=== PATIENT | female | born 1940 | race Caucasian/White ===

== ENCOUNTER → 2021-02-18 09:04 | Outpatient (CLI) | payer MEDICARE, SELFPAY ==
--- NOTE | 2021-02-18 09:10 | US_ITS ---
PROCEDURE: US SOFT TISSUE HEAD AND NECK CLINICAL INDICATION: NECK MASS COMPARISON: No exams were available for comparison FINDINGS: The parotids and submandibular glands have an unremarkable appearance. No obvious mass or abnormal fluid collection. Small bilateral cervical lymph nodes are present. IMPRESSION: No obvious mass or fluid collection. Small bilateral cervical lymph nodes. If there is indeed a palpable nodule then should consider CT neck with contrast for further evaluation Dictated by: Amrit Teague MD 02/18/2021 17:36 Amrit Teague MD in [place] 02/18/2021 17:36
== END ==
PROVIDERS: PCP Emergency Medicine; Visit Provider Emergency Medicine
DX: R22.1 Localized swelling, mass and lump, neck (principal)
CPT/HCPCS: 76536

== ENCOUNTER → 2021-06-02 12:49 | Outpatient (CLI) | payer MEDICARE, SELFPAY ==
[2021-06-02 14:00] LABS: Blood Urea Nitrogen 18 mg/dl (7-17); Estimated Glomerular Filt Rate 60 ml/min (>60); GFR (African American) 73 ML/MIN (>60)
== END ==
PROVIDERS: PCP Emergency Medicine; Visit Provider Otolaryngology
DX: Z01.812 Encounter for preprocedural laboratory examination (principal)
CPT/HCPCS: 36415; 82565; 84520

== ENCOUNTER → 2021-06-03 13:25 | Outpatient (CLI) | payer MEDICARE, SELFPAY ==
--- NOTE | 2021-06-03 13:26 | CT_ITS ---
FINAL REPORT TECHNIQUE: Thin section axial CT images were obtained through the neck after intravenous contrast administration. Coronal and sagittal reformats were also obtained. This study was performed with techniques to keep radiation doses as low as reasonably achievable (ALARA). Individualized dose reduction techniques using automated exposure control or adjustment of mA and/or kV according to the patient''s size were employed. CLINICAL HISTORY: dysphagia FINDINGS: There is soft tissue fullness of the oropharynx and hypopharynx of uncertain significance, could be inflammatory or neoplastic. The nasopharynx and larynx are unremarkable. There is no evidence of adenopathy. The thyroid gland is small without mass. The visualized sinuses are clear. There are diffuse degenerative changes of the cervical spine. IMPRESSION: Soft tissue fullness of the oropharynx and hypopharynx, could be inflammatory or neoplastic. Upper endoscopy could further evaluate. Reviewed, Interpreted and Dictated by Fly Joe III, MD Transcribed by Antonella Bowden Authenticated by Fly Joe III, MD on 06/03/2021 03:53:19 PM [facility]
== END ==
PROVIDERS: PCP Emergency Medicine; Visit Provider Otolaryngology
DX: R13.10 Dysphagia, unspecified (principal)
CPT/HCPCS: 70491; Q9967

== ENCOUNTER → 2021-06-17 11:54 | Outpatient (CLI) | payer MEDICARE, SELFPAY | PROVIDERS: Visit Provider Nurse Practitioner | DX: Z20.822 Contact with and (suspected) exposure to COVID-19 (principal) | CPT/HCPCS: C9803; U0003; U0005 ==

== ENCOUNTER → 2022-12-17 11:00 | Outpatient (CLI) | payer MEDICARE, SELFPAY | PROVIDERS: PCP Nurse Practitioner Family; Visit Provider Nurse Practitioner Family | DX: R30.0 Dysuria (principal) | CPT/HCPCS: 87086 ==

== ENCOUNTER → 2022-12-22 09:36 | Outpatient (CLI) | payer MEDICARE, SELFPAY ==
--- NOTE | 2022-12-22 09:37 | US_ITS ---
FINAL REPORT TECHNIQUE: Ultrasound images of the kidneys and bladder were obtained. CLINICAL HISTORY: bilateral flank pain FINDINGS: The right kidney measures 11.6 cm in length. It is normal in echogenicity. There is no hydronephrosis. There is a 4.4 cm cyst in the right kidney. The left kidney measures 10.6 cm in length. It is normal in echogenicity. There is no hydronephrosis. There is an 8.7 cm cyst in the left kidney. The spleen is unremarkable. IMPRESSION: Bilateral renal cysts. Reviewed, Interpreted and Dictated by Fly Joe III, MD Transcribed by Antonella Bowden Authenticated and . [facility]
== END ==
PROVIDERS: PCP Nurse Practitioner Family; Visit Provider Nurse Practitioner Family
DX: N15.9 Renal tubulo-interstitial disease, unspecified (principal); R10.9 Unspecified abdominal pain
CPT/HCPCS: 76770

== ENCOUNTER → 2023-02-03 23:32 | Outpatient (CLI) | payer MEDICARE, SELFPAY ==
[2023-02-03 16:56] LABS: Basophils % 0.5 % (0.1-2.0); Eosinophils # 0.1 K/mm3 (0.0-0.4); Eosinophils % 2.9 % (0.1-12.0); Hemoglobin 13.5 g/dL (12.2-16.2); Lymphocytes # 1.7 K/mm3 (0.7-4.5); Mean Corpuscular HGB Conc 32.1 g/dL (31.8-35.4); Mean Corpuscular Hemoglobin 30.3 pg (27.0-31.2); Mean Corpuscular Volume 94.1 fl (81-99); Mean Platelet Volume 8.1 fl (7.4-10.4); Monocytes # 0.4 K/mm3 (0.1-1.0); Monocytes % 9.8 % (1.7-9.3); Neutrophils % 47.8 % (37.0-80.0); Platelet Count 241 K/mm3 (142-424); Red Blood Count 4.46 M/mm3 (4.20-5.40); Red Cell Distribution Width 14.1 % (11.5-17.5); White Blood Count 4.3 K/mm3 (4.8-10.8)
[2023-02-03 17:05] LABS: Alanine Aminotransferase 49 U/L (12-78); Albumin Level 4.2 g/dl (3.5-5.0); Albumin/Globulin Ratio 1.7 (1.1-1.8); Alkaline Phosphatase 103 U/L (38-126); Anion Gap 12.5 mEq/L (5-15); Aspartate Amino Transferase 42 U/L (14-36); Bilirubin,Total 0.5 mg/dl (0.2-1.3); Blood Urea Nitrogen 19 mg/dl (7-17); Calcium 9.9 mg/dl (8.4-10.2); Carbon Dioxide 30 mmol/L (22.0-30.0); Chloride 102 mmol/L (98-107); Cholesterol 232 mg/dl (140-200); Estimated Glomerular Filt Rate 60 ml/min (>60); GFR (African American) 73 ML/MIN (>60); Globulin 2.5 g/dL (1.3-3.2); Glucose 86 mg/dl (74-100); HDL Cholesterol 33 mg/dl (40-60); Potassium 4.5 mmoL/L (3.5-5.1); Sodium 140 mmol/L (136-145); Total Protein,Serum 6.7 g/dl (6.3-8.2); Triglycerides 224 mg/dl (30-150); VLDL Cholesterol 45 mg/dL (0-40)
[2023-02-03 17:16] LABS: Direct LDL Cholesterol 146.01 mg/dL (100-129)
[2023-02-03 17:39] LABS: Thyroid Stimulating Hormone 0.15 uIU/mL (0.465-4.68)
== END ==
PROVIDERS: PCP Family Medicine; Visit Provider Family Medicine
DX: I10 Essential (primary) hypertension (principal); E03.9 Hypothyroidism, unspecified
CPT/HCPCS: 80053; 80061; 84443; 85025

== ENCOUNTER → 2023-02-24 11:10 | Outpatient (CLI) | payer MEDICARE, SELFPAY | PROVIDERS: PCP Nurse Practitioner Family; Visit Provider Nurse Practitioner Family | DX: R30.0 Dysuria (principal) | CPT/HCPCS: 87086 ==

== ENCOUNTER 2023-07-04 14:41 | Outpatient (CLI) | payer MEDICARE, SELFPAY ==
--- NOTE | 2023-07-04 14:42 | US_ITS ---
FINAL REPORT CLINICAL HISTORY: Renal follow-up COMPARISON: None FINDINGS: RENAL ULTRASOUND Ultrasound images of the kidneys were obtained. Limited images of the liver parenchyma demonstrates normal echogenicity. The right kidney measures 12.5 cm in length. There is a probable cyst in the upper pole of the right kidney measuring 5.6 cm. The left kidney measures 11.7 cm in length. There is a 9.6 cm cyst in the lower pole the left kidney. IMPRESSION: Bilateral renal cysts. Reviewed, Interpreted and Dictated by Fly Joe III, MD Transcribed by Katia Goins Authenticated and [facility]
== END 2023-07-04 23:59 ==
LOC: RAD 14:42
PROVIDERS: PCP Family Medicine; Visit Provider Family Medicine
DX: N28.1 Cyst of kidney, acquired (principal)
CPT/HCPCS: 76770

== ENCOUNTER 2023-09-20 18:00 | Outpatient (CLI) | payer MEDICARE, SELFPAY ==
[2023-09-20 17:06] LABS: Alanine Aminotransferase 26 U/L (12-78); Albumin Level 4.4 g/dl (3.5-5.0); Albumin/Globulin Ratio 1.7 (1.1-1.8); Alkaline Phosphatase 97 U/L (38-126); Anion Gap 9.8 mEq/L (5-15); Aspartate Amino Transferase 32 U/L (14-36); Bilirubin,Total 0.8 mg/dl (0.2-1.3); Blood Urea Nitrogen 25 mg/dl (7-17); Calcium 10.4 mg/dl (8.4-10.2); Carbon Dioxide 30 mmol/L (22.0-30.0); Chloride 104 mmol/L (98-107); Chol/HDL Ratio 4.7 (1-3.5); Cholesterol 290 mg/dl (140-200); Estimated Glomerular Filt Rate 60 ml/min (>60); GFR (African American) 73 ML/MIN (>60); Globulin 2.6 g/dL (1.3-3.2); Glucose 92 mg/dl (74-100); HDL Cholesterol 62 mg/dl (40-60); Potassium 4.8 mmoL/L (3.5-5.1); Sodium 139 mmol/L (136-145); Triglycerides 161 mg/dl (30-150); VLDL Cholesterol 32 mg/dL (0-40)
[2023-09-20 17:08] LABS: Basophils % 0.5 % (0.1-2.0); Eosinophils # 0.1 K/mm3 (0.0-0.4); Eosinophils % 1.5 % (0.1-12.0); Hematocrit 43.6 % (37.0-47.0); Hemoglobin 14.1 g/dL (12.2-16.2); Lymphocytes # 1.6 K/mm3 (0.7-4.5); Lymphocytes % 25.8 % (10-50); Mean Corpuscular HGB Conc 32.3 g/dL (31.8-35.4); Mean Corpuscular Hemoglobin 30.7 pg (27.0-31.2); Mean Corpuscular Volume 94.9 fl (81-99); Mean Platelet Volume 8.7 fl (7.4-10.4); Monocytes # 0.6 K/mm3 (0.1-1.0); Neutrophils % 63.1 % (37.0-80.0); Platelet Count 248 K/mm3 (142-424); Red Blood Count 4.59 M/mm3 (4.20-5.40); Red Cell Distribution Width 14.1 % (11.5-17.5); White Blood Count 6.3 K/mm3 (4.8-10.8)
[2023-09-20 17:16] LABS: Direct LDL Cholesterol 179.49 mg/dL (100-129)
[2023-09-20 17:36] LABS: Thyroid Stimulating Hormone 7.83 uIU/mL (0.465-4.68)
== END 2023-09-20 23:59 | disposition home or self-care (01) ==
LOC: LAB.DROPOF 09-21 13:04
PROVIDERS: PCP Family Medicine; Visit Provider Family Medicine
DX: I10 Essential (primary) hypertension (principal); E03.9 Hypothyroidism, unspecified; Z87.891 Personal history of nicotine dependence
CPT/HCPCS: 80053; 80061; 84443; 85025

== ENCOUNTER 2023-12-22 11:16 | Outpatient (CLI) | payer MEDICARE, SELFPAY ==
[2023-12-22 17:18] LABS: Thyroid Stimulating Hormone 3.35 uIU/mL (0.465-4.68)
== END 2023-12-22 23:59 | disposition home or self-care (01) ==
LOC: LAB.DROPOF 12-23 08:10
PROVIDERS: PCP Nurse Practitioner Family; Visit Provider Nurse Practitioner Family
DX: R39.9 Unspecified symptoms and signs involving the genitourinary system (principal); E03.9 Hypothyroidism, unspecified
CPT/HCPCS: 84443; 87086

== ENCOUNTER 2024-01-18 12:31 | Outpatient (CLI) | payer MEDICARE, SELFPAY ==
--- NOTE | 2024-01-18 12:32 | US_ITS ---
FINAL REPORT CLINICAL HISTORY: Renal cysts, follow-up COMPARISON: 07/04/2023 FINDINGS: RENAL ULTRASOUND Ultrasound images of the kidneys were obtained. Limited images of the liver parenchyma demonstrates mild fatty infiltration of the liver. The right kidney measures 12.8 cm in length. It is normal echogenicity. There is a 4.6 x 4.4 cm cyst. There is no hydronephrosis. The left kidney measures 12.1 cm in length. It is normal echogenicity. There is a 9.4 x 7.2 cm cyst. There is no hydronephrosis. IMPRESSION: Bilateral renal cysts, similar to the prior exam. Reviewed, Interpreted and Dictated by Nixon Sheikh MD Transcribed by Christine Fisher Authenticated and [facility]
== END 2024-01-18 23:59 | disposition home or self-care (01) ==
LOC: RAD 12:32
PROVIDERS: PCP Family Medicine; Visit Provider Family Medicine
DX: I10 Essential (primary) hypertension (principal); Z87.891 Personal history of nicotine dependence
CPT/HCPCS: 76770

== ENCOUNTER 2024-07-16 10:56 | Outpatient (CLI) | payer MEDICARE, SELFPAY ==
[2024-07-16 17:28] LABS: Basophils % 0.9 % (0.1-2.0); Eosinophils # 0.1 K/mm3 (0.0-0.4); Eosinophils % 3.1 % (0.1-12.0); Hematocrit 41.8 % (37.0-47.0); Hemoglobin 13.6 g/dL (12.2-16.2); Lymphocytes # 1.5 K/mm3 (0.7-4.5); Lymphocytes % 34.3 % (10-50); Mean Corpuscular HGB Conc 32.5 g/dL (31.8-35.4); Mean Corpuscular Hemoglobin 29.7 pg (27.0-31.2); Mean Corpuscular Volume 91.3 fl (81-99); Mean Platelet Volume 9.4 fl (7.4-10.4); Monocytes # 0.5 K/mm3 (0.1-1.0); Monocytes % 10.9 % (1.7-9.3); Neutrophils # 2.1 K/mm3 (1.8-7.8); Neutrophils % 50.6 % (37.0-80.0); Platelet Count 213 K/mm3 (142-424); Red Blood Count 4.58 M/mm3 (4.20-5.40); Red Cell Distribution Width 13.5 % (11.5-17.5); White Blood Count 4.2 K/mm3 (4.8-10.8)
[2024-07-16 18:01] LABS: Albumin Level 4.4 g/dl (3.5-5.0); Chloride 104 mmol/L (98-107)
[2024-07-16 18:02] LABS: Potassium 4.2 mmoL/L (3.5-5.1); Sodium 141 mmol/L (136-145)
[2024-07-16 18:04] LABS: Alanine Aminotransferase 24 U/L (12-78); Aspartate Amino Transferase 30 U/L (14-36); Blood Urea Nitrogen 17 mg/dl (7-17); Estimated Glomerular Filt Rate 69 ml/min (>60); GFR (African American) 83 ML/MIN (>60)
[2024-07-16 18:05] LABS: Albumin/Globulin Ratio 1.8 (1.1-1.8); Alkaline Phosphatase 90 U/L (38-126); Anion Gap 12.2 mEq/L (5-15); Bilirubin,Total 0.5 mg/dl (0.2-1.3); Calcium 9.9 mg/dl (8.4-10.2); Carbon Dioxide 29 mmol/L (22.0-30.0); Chol/HDL Ratio 8.1 (1-3.5); Cholesterol 274 mg/dl (140-200); Globulin 2.4 g/dL (1.3-3.2); Glucose 86 mg/dl (74-100); HDL Cholesterol 34 mg/dl (40-60); Total Protein,Serum 6.8 g/dl (6.3-8.2); Triglycerides 295 mg/dl (30-150); VLDL Cholesterol 59 mg/dL (0-40)
[2024-07-16 18:20] LABS: Direct LDL Cholesterol 170.08 mg/dL (100-129)
[2024-07-16 18:26] LABS: T4 (Thyroxine) 7.2 ug/dl (5.53-11.0)
[2024-07-16 18:47] LABS: HIV Combo NEGATIVE (Negative)
[2024-07-16 18:56] LABS: Hepatitis C Ab Qual. W/ RFX NEGATIVE (Negative)
== END 2024-07-16 23:59 | disposition home or self-care (01) ==
LOC: LAB.DROPOF 07-17 18:25
PROVIDERS: PCP Family Medicine; Visit Provider Family Medicine
DX: E03.9 Hypothyroidism, unspecified (principal); I10 Essential (primary) hypertension; Z11.59 Encounter for screening for other viral diseases; R39.9 Unspecified symptoms and signs involving the genitourinary system
CPT/HCPCS: 80053; 80061; 84436; 84443; 85025; 86803; 87086; 87389

== ENCOUNTER 2024-08-09 12:33 | Emergency (ER) | payer MEDICARE, SELFPAY ==
[2024-08-09] VITALS (10 sets, daily range): BP systolic 157–178; BP diastolic 65–101; PULSE 66–85; RESP 13–18; TEMP 36.6; O2SAT 93–98; BMI 45.1
--- NOTE | 2024-08-09 12:28 | ECG_ITS ---
APPROVED REPORT Exam: Resting ECG HR:80 bpm ECG Measurements Heart Rate 80 AXES VT 237 P 60 QRSd 90 QRS 16 QT 350 T 62 QTc 386 Conclusion SINUS RHYTHM WITH FIRST DEGREE AV BLOCK NONSPECIFIC T-WAVE ABNORMALITY ABNORMAL ECG UNCONFIRMED REPORT Electronically signed by : CHEPE CASTRO, 08/10/2024 02:22:48
--- NOTE | 2024-08-09 12:35 | CT_ITS ---
FINAL REPORT TECHNIQUE: Thin section axial CT with contrast with multiplanar reconstruction This study was performed with techniques to keep radiation doses as low as reasonably achievable, (ALARA). Individualized dose reduction techniques using automated exposure control or adjustment of mA and/or kV according to the patient's size were employed. CLINICAL HISTORY: L shoulder pain L paraspinal pain non modifiable COMPARISON: None FINDINGS: CTA CHEST: No evidence of aortic dissection or aneurysm is identified. The branch vessels of the thoracic aorta are widely patent. No gross central pulmonary emboli are noted. There is a subpleural nodule, 6 mm in size, in the superior segment of the left lower lobe, best seen on image #35 of series 7. No acute infiltrate is identified. Mild dependent atelectasis is noted in the lung [place]. There is no significant pleural effusion. There is no significant pericardial effusion. No mediastinal or hilar adenopathy is present. A small hiatal hernia is noted. IMPRESSION: No evidence of dissection or aneurysm of the thoracic aorta or branch vessels. 6 mm subpleural nodule in the left lower lobe noted, recommend 6-month follow-up chest CT for further evaluation. Reviewed, Interpreted and Dictated by Paula Johansen MD Transcribed by Luisa Gray Authenticated and [facility]
--- NOTE | 2024-08-09 12:37 | HMH.EDGENADL ---
Discharge Plan Disposition Patient Disposition: Home, Self-Care Chief Complaint: Extremity Injury, Upper Prescriptions Prescriptions: No Action Centrum Silver 0.4-300-250 mg-mcg-mcg tablet 1 tab PO DAILY cholecalciferol (vitamin D3) 10 mcg (400 unit) capsule 10 mcg PO DAILY hydrochlorothiazide 12.5 mg tablet 12.5 mg PO DAILY Qty: 30 2RF metoprolol succinate 25 mg tablet extended release 24 hr 25 mg PO DAILY Qty: 90 2RF ropinirole 1 mg tablet See Rx Instructions .ROUTE .COMPLEX Qty: 270 3RF Dose Instruction: TAKE 3 TABLETS DAILY Rx Instructions: TAKE 3 TABLETS DAILY celecoxib 100 mg capsule See Rx Instructions .ROUTE .COMPLEX Qty: 90 3RF Dose Instruction: TAKE 1 CAPSULE DAILY Rx Instructions: TAKE 1 CAPSULE DAILY levothyroxine 100 mcg tablet 100 mcg PO DAILY 30 Days Qty: 30 0RF Rx Instructions: (2) tablets 1 day a week (1) tablet 6 days a week pregabalin [Lyrica] 25 mg capsule 25 mg PO HS Qty: 30 0RF Referrals Follow up/Referrals: Eleno Lantigua MD [Primary Care Provider] - See instructions Activity Restrictions/Add. Instructions Additional Instructions/Restrictions: At this time it was felt you are safe to be discharged home. If new or worsening symptoms please do not hesitate to return the emergency department. Please follow-up with your family doctor for continued evaluation of your shoulder pain as you are able. Clinical Impressions Clinical Impression: Acute shoulder pain Print Language Print Language: Irish Discharge ED Provider: Vinicius Bird General Adult HPI <Melvin Helm MD - Last Filed: 08/09/24 15:25> General Chief complaint: Extremity Injury, Upper Stated complaint: Chest Pain Time Seen by Provider: 08/09/24 12:35 History of Present Illness HPI narrative: Patient is a 83-year-old female with past medical history of hypertension, sleep apnea, previous breast cancer, previous shoulder pain presents emergency department for evaluation of shoulder pain. She has had some shoulder pain since May, left-sided however this is much worse than normal spontaneously awaking her up out of her sleep this morning. No anterior chest pain. It is left sided behind her shoulder, no trauma. She has had a cough since May that is difficult to articulate if it is worse than normal. No other acute complaints at this time. Please note that above description of symptoms, in this electronic medical record under categorization of recalled from ER triage doctor by RN are reflective of an initial nursing assessment, however, is not reflective of my full history and physical exam that was personally taken and clarified. Consequentially, this preceding description of symptoms, which may include the patient's categorized chief complaint in the EMR, do not reflect my personal clinical impression, and the ultimate description of history of present illness and patient stated complaints should be deferred to this section of the note. Unless stated otherwise or congruent with this section of the note, additional signs, symptoms, or incongruence should be interpreted as inaccurate with my clinical impression. Related Data Home Medications ?Medication ?Instructions ?Recorded ?Confirmed cholecalciferol (vitamin D3) 10 10 mcg PO DAILY 05/26/21 07/16/24 mcg (400 unit) capsule ghdjjrpw-uzg-bdfvi acid 0.4 1 tab PO DAILY 05/26/21 07/16/24 mg-lycopene 300 mcg-lutein 250 mcg tablet (Centrum Silver) Previous Rx's ?Medication ?Instructions ?Recorded metoprolol succinate 25 mg 25 mg PO DAILY #90 tabs 12/09/23 tablet,extended release 24 hr hydrochlorothiazide 12.5 mg tablet 12.5 mg PO DAILY #30 tabs 12/22/23 ropinirole 1 mg tablet See Rx Instructions .Route 04/23/24 .COMPLEX #270 tabs celecoxib 100 mg capsule See Rx Instructions .Route 06/18/24 .COMPLEX #90 caps levothyroxine 100 mcg tablet 100 mcg PO DAILY 30 days #30 tabs 07/18/24 pregabalin 25 mg capsule (Lyrica) 25 mg PO HS leg pain #30 caps 07/23/24 Allergies Allergy/AdvReac Type Severity Reaction Status Date / Time famciclovir (From Famvir) Allergy Verified 07/16/24 10:17 Penicillins Allergy Verified 07/16/24 10:17 quinine Allergy Verified 07/16/24 10:17 PFSH <Melvin Helm MD - Last Filed: 08/09/24 15:25> PFS Disclaimer: The information contained in this section may have been updated after the patient was seen, as this information can be updated by other users. Medical History Restless legs Breast cancer Surgical History History of knee replacement History of carpal tunnel surgery History of cholecystectomy S/P mastectomy, bilateral History of bilateral knee replacement Family History Mother Cancer Heart attack Father Heart attack Social History Smoking Status: Never smoker alcohol intake: never current occupational status: retired Travel in the last 8 weeks: None Have you lived/traveled outside [place] in past 30 days?: No Contact w/someone who lives/traveled outside US past 30 days?: No Exposure to someone with infectious disease in past 14 days?: No Do you have a fever (greater than 100.4 F or 38 C)?: No Have you tested positive for COVID-19: No Exposed to someone with COVID-19 in past 14 days?: No Do you have a sore throat?: No Do you have a cough?: No Do you have any weakness?: No Do you have any diarrhea?: No Are you experiencing any unusual bleeding?: No Do you have any muscle aches/pain?: No Do you have any abdominal pain?: No Are you experiencing loss of taste or smell?: No Other Medical History Have you received the Pneumonia Vaccine: Yes <Melvin Helm MD - Last Filed: 08/09/24 15:25> ROS Obtained: Yes Systems reviewed as appropriate & no additional complaints except as documented Physical Exam <Melvin Helm MD - Last Filed: 08/09/24 15:25> General General appearance: alert and in no apparent distress Head Head exam: atraumatic and normocephalic Eye Eye exam: Present PERRL ENT ENT exam: Present mucous membranes moist Neck Neck exam: Present normal inspection Chest Chest inspection: Present normal inspection and symmetric chest wall rise Respiratory Respiratory exam: Present normal lung sounds bilaterally; Absent respiratory distress Cardiovascular Cardiovascular exam: Present regular rate and normal rhythm Abdominal Exam Abdominal exam: Present soft; Absent tenderness Extremities Exam Extremities exam: Present normal inspection Back Exam Back exam: Present normal inspection; Absent tenderness Neurological Exam Neurological exam: Present alert Psychiatric Psychiatric exam: Present normal affect Skin Skin exam: Present warm and dry Medical Decision Making <Melvin Helm MD - Last Filed: 08/09/24 15:25> Medical Records Screening: Per USPSTF and CDC recommendations, given the prevalence of disease in our region, it is our hospital?s policy to screen for HIV and viral Hepatitis for all patients aged 18 and over and those with ongoing risk factors. Parth Inquiry Pt receiving controlled substance: No Vital Signs: 08/09/24 12:36 08/09/24 13:00 08/09/24 13:31 Temperature 97.8 F Temperature Source Oral Pulse Rate 76 72 Pulse Rate [Radial] 79 Respiratory Rate 16 13 17 Blood Pressure 174/92 H 172/88 H Blood Pressure [Right Arm] 157/101 H Blood Pressure Mean [Right Arm] 119 Blood Pressure Source [Right Arm] Automatic Cuff Blood Pressure Position [Right Arm] Sitting 02 Sat by Pulse Oximetry 97 95 95 Oxygen Delivery Method Room Air Room Air 08/09/24 14:01 08/09/24 14:30 Temperature Temperature Source Pulse Rate 73 66 Pulse Rate [Radial] Respiratory Rate 18 Blood Pressure 172/94 H 172/94 H Blood Pressure [Right Arm] Blood Pressure Mean [Right Arm] Blood Pressure Source [Right Arm] Blood Pressure Position [Right Arm] 02 Sat by Pulse Oximetry 95 97 Oxygen Delivery Method Room Air Lab Data Lab Results 08/09/24 12:30: SARS-CoV-2 (PCR) Not detected, Influenza A Untype (PCR) Not detected, Influenza Type B (PCR) Not detected 08/09/24 12:46: WBC 4.9, RBC 4.38, Hgb 13.3, Hct 39.5, MCV 90.2, MCH 30.4, MCHC 33.7, RDW 13.2, Plt Count 203, MPV 8.9, Neut % (Auto) 55.9, Lymph % (Auto) 29.3, [place] % (Auto) 11.1 H, Eos % (Auto) 2.9, Baso % (Auto) 0.6, Neut # (Auto) 2.7, Lymph # (Auto) 1.4, [place] # (Auto) 0.5, Eos # (Auto) 0.1, Baso # (Auto) 0.0, Sodium 139, Potassium 4.0, Chloride 106, Carbon Dioxide 28, Anion Gap 9.0, BUN 18 H, Creatinine 0.70, Estimated Creat Clear 41, Estimated GFR 80, Est GFR ( Amer) 97, Glucose 114 H, Calcium 9.6, Total Bilirubin 0.6, AST 35, ALT 24, Alkaline Phosphatase 72, Troponin I < 0.01, Total Protein 6.7, Albumin 4.3, Globulin 2.4, Albumin/Globulin Ratio 1.8 08/09/24 12:46 08/09/24 12:46 Orders (Tests/Meds): ED MEDICATIONS Discontinued Medications Generic Name Dose Route Start Last Admin Trade Name Freq PRN Reason Stop Dose Admin Acetaminophen 1,000 mg 08/09/24 12:35 08/09/24 12:53 Acetaminophen 500mg Tab PO 08/09/24 12:36 1,000 mg ONCE ONE Administration Aspirin 324 mg 08/09/24 12:40 08/09/24 12:53 Aspirin 81mg Chewable Tablet PO 08/09/24 12:41 324 mg ONCE ONE Administration Iopamidol 80 ml 08/09/24 13:49 08/09/24 13:51 Iopamidol-370 (76%);100ml Bottle IV 08/09/24 13:50 80 ml ONCE ONE Administration Ketorolac Tromethamine 30 mg 08/09/24 12:35 08/09/24 12:53 Ketorolac 30mg/Ml Vial IV 08/09/24 12:36 30 mg ONCE ONE Administration Sodium Chloride 50 ml 08/09/24 13:49 08/09/24 13:51 0.9 % Sodium Chloride 50 Ml Vial IV 08/09/24 13:50 50 ml ONCE ONE Administration Sodium Chloride 10 ml 08/09/24 13:49 08/09/24 13:51 Sodium Chloride 0.9% 10ml Syr (Rad Only) IV 08/09/24 13:50 10 ml ONCE ONE Administration ORDERS Category Date Time Status CT angio chest - dissection Stat Cat Scan 08/09/24 12:35 Completed CBC w/Auto Diff [Complete Blood Count Auto Diff] Stat Lab 08/09/24 12:46 Completed CMP [Comprehensive Metabolic Panel] Stat Lab 08/09/24 12:46 Completed Rapid PCR Covid and Flu A/B Stat Lab 08/09/24 12:30 Completed Trop I [Troponin I] Stat Lab 08/09/24 12:46 Completed Troponin I Q3H Lab 08/09/24 18:45 Ordered ECG Data Tracing #1: Independently interpreted by me rate is 80, rhythm is regular, axis is normal, no ST elevation in anatomical contiguous leads, QTc 363 Medical Decision Narrative: In summary patient is a 83-year-old female with past medical history described above presents emergency department for evaluation of atraumatic left paraspinal left shoulder pain. Patient is hemodynamically stable nontoxic-appearing upon arrival, afebrile. Differential includes musculoskeletal pain, atypical ACS, aortic dissection, pneumonia, among others. Workup be conducted with hematologic labs single troponin EKG CTA chest. Initial inventions include aspirin, Tylenol, Toradol. Initial workup reviewed by me, hematologic labs are nonactionable no significant leukocytosis no anemia, no HARJINDER or critical electrolyte abnormality initial troponin undetectably low. Viral swab negative. Initial work reviewed by me, hematologic labs are nonactionable, no HARJINDER or critical electrolyte abnormality initial troponin undetectably low viral swab negative. CTA chest conducted and formal read pending at time of transition of care to the oncoming physician, Dr. Bird. <Vinicius Bird MD - Last Filed: 08/09/24 16:10> Vital Signs: 08/09/24 12:36 08/09/24 13:00 08/09/24 13:31 Temperature 97.8 F Temperature Source Oral Pulse Rate 76 72 Pulse Rate [Radial] 79 Respiratory Rate 16 13 17 Blood Pressure 174/92 H 172/88 H Blood Pressure [Right Arm] 157/101 H Blood Pressure Mean [Right Arm] 119 Blood Pressure Source [Right Arm] Automatic Cuff Blood Pressure Position [Right Arm] Sitting 02 Sat by Pulse Oximetry 97 95 95 Oxygen Delivery Method Room Air Room Air 08/09/24 14:01 08/09/24 14:30 Temperature Temperature Source Pulse Rate 73 66 Pulse Rate [Radial] Respiratory Rate 18 Blood Pressure 172/94 H 172/94 H Blood Pressure [Right Arm] Blood Pressure Mean [Right Arm] Blood Pressure Source [Right Arm] Blood Pressure Position [Right Arm] 02 Sat by Pulse Oximetry 95 97 Oxygen Delivery Method Room Air Lab Data Lab Results 08/09/24 12:30: SARS-CoV-2 (PCR) Not detected, Influenza A Untype (PCR) Not detected, Influenza Type B (PCR) Not detected 08/09/24 12:46: WBC 4.9, RBC 4.38, Hgb 13.3, Hct 39.5, MCV 90.2, MCH 30.4, MCHC 33.7, RDW 13.2, Plt Count 203, MPV 8.9, Neut % (Auto) 55.9, Lymph % (Auto) 29.3, [place] % (Auto) 11.1 H, Eos % (Auto) 2.9, Baso % (Auto) 0.6, Neut # (Auto) 2.7, Lymph # (Auto) 1.4, [place] # (Auto) 0.5, Eos # (Auto) 0.1, Baso # (Auto) 0.0, Sodium 139, Potassium 4.0, Chloride 106, Carbon Dioxide 28, Anion Gap 9.0, BUN 18 H, Creatinine 0.70, Estimated Creat Clear 41, Estimated GFR 80, Est GFR ( Amer) 97, Glucose 114 H, Calcium 9.6, Total Bilirubin 0.6, AST 35, ALT 24, Alkaline Phosphatase 72, Troponin I < 0.01, Total Protein 6.7, Albumin 4.3, Globulin 2.4, Albumin/Globulin Ratio 1.8 Orders (Tests/Meds): ED MEDICATIONS Discontinued Medications Generic Name Dose Route Start Last Admin Trade Name Rickq PRN Reason Stop Dose Admin Acetaminophen 1,000 mg 08/09/24 12:35 08/09/24 12:53 Acetaminophen 500mg Tab PO 08/09/24 12:36 1,000 mg ONCE ONE Administration Aspirin 324 mg 08/09/24 12:40 08/09/24 12:53 Aspirin 81mg Chewable Tablet PO 08/09/24 12:41 324 mg ONCE ONE Administration Iopamidol 80 ml 08/09/24 13:49 08/09/24 13:51 Iopamidol-370 (76%);100ml Bottle IV 08/09/24 13:50 80 ml ONCE ONE Administration Ketorolac Tromethamine 30 mg 08/09/24 12:35 08/09/24 12:53 Ketorolac 30mg/Ml Vial IV 08/09/24 12:36 30 mg ONCE ONE Administration Sodium Chloride 50 ml 08/09/24 13:49 08/09/24 13:51 0.9 % Sodium Chloride 50 Ml Vial IV 08/09/24 13:50 50 ml ONCE ONE Administration Sodium Chloride 10 ml 08/09/24 13:49 08/09/24 13:51 Sodium Chloride 0.9% 10ml Syr (Rad Only) IV 08/09/24 13:50 10 ml ONCE ONE Administration ORDERS Category Date Time Status CT angio chest - dissection Stat Cat Scan 08/09/24 12:35 Completed CBC w/Auto Diff [Complete Blood Count Auto Diff] Stat Lab 08/09/24 12:46 Completed CMP [Comprehensive Metabolic Panel] Stat Lab 08/09/24 12:46 Completed Rapid PCR Covid and Flu A/B Stat Lab 08/09/24 12:30 Completed Trop I [Troponin I] Stat Lab 08/09/24 12:46 Completed Troponin I Q3H Lab 08/09/24 18:45 Ordered Medical Decision Narrative: In summary patient is a 83-year-old female with past medical history described above presents emergency department for evaluation of atraumatic left paraspinal left shoulder pain. Patient is hemodynamically stable nontoxic-appearing upon arrival, afebrile. Differential includes musculoskeletal pain, atypical ACS, aortic dissection, pneumonia, among others. Workup be conducted with hematologic labs single troponin EKG CTA chest. Initial inventions include aspirin, Tylenol, Toradol. Initial workup reviewed by me, hematologic labs are nonactionable no significant leukocytosis no anemia, no HARJINDER or critical electrolyte abnormality initial troponin undetectably low. Viral swab negative. Initial work reviewed by me, hematologic labs are nonactionable, no HARJINDER or critical electrolyte abnormality initial troponin undetectably low viral swab negative. CTA chest conducted and formal read pending at time of transition of care to the oncoming physician, Dr. Bird. [place]: I assumed primary responsibility for this patient after signout from previous physician. Patient coming in with atraumatic pain. On independent interpretation of workup, nonactionable hematologic labs and negative troponin. Viral swab negative, CT angiogram negative for any acute actionable pathology, this was independently interpreted. Radiology report with 6 mm nodule in the left lower lobe which was relayed to patient. 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 Because patient at baseline without signs or symptoms of clinical decompensation, deemed appropriate for discharge. Results were relayed to patient who voiced understanding and were agreeable to outpatient management and follow up. I discussed my clinical impression with patient and answered all questions. At this time, the evidence for any other entities in the differential is insufficient to warrant any further testing or ED observation. This was explained as well. Advisory was given that persistent or worsening symptoms require further evaluation. I confirmed the understanding of this discussion. Critical Care <Melvin Helm MD - Last Filed: 08/09/24 15:25> Critical Care Time Critical Care Time: No
[2024-08-09 12:39] LABS: Coronavirus 19, PCR Not Detected (NotDetected); Influenza A, PCR Not Detected (NotDetected); Influenza B, PCR Not Detected (NotDetected)
[2024-08-09] MEDS: ACETAMINOPHEN 500MG TAB 1000 MG PO (12:53)
[2024-08-09] MEDS: KETOROLAC 30MG/ML VIAL 30 MG IV (12:53)
[2024-08-09] MEDS: ASPIRIN 81MG CHEWABLE TABLET 324 MG PO (12:53)
[2024-08-09 13:13] LABS: Basophils % 0.6 % (0.1-2.0); Eosinophils # 0.1 K/mm3 (0.0-0.4); Eosinophils % 2.9 % (0.1-12.0); Hematocrit 39.5 % (37.0-47.0); Hemoglobin 13.3 g/dL (12.2-16.2); Lymphocytes # 1.4 K/mm3 (0.7-4.5); Lymphocytes % 29.3 % (10-50); Mean Corpuscular HGB Conc 33.7 g/dL (31.8-35.4); Mean Corpuscular Hemoglobin 30.4 pg (27.0-31.2); Mean Corpuscular Volume 90.2 fl (81-99); Mean Platelet Volume 8.9 fl (7.4-10.4); Monocytes # 0.5 K/mm3 (0.1-1.0); Monocytes % 11.1 % (1.7-9.3); Neutrophils # 2.7 K/mm3 (1.8-7.8); Neutrophils % 55.9 % (37.0-80.0); Platelet Count 203 K/mm3 (142-424); Red Blood Count 4.38 M/mm3 (4.20-5.40); Red Cell Distribution Width 13.2 % (11.5-17.5); White Blood Count 4.9 K/mm3 (4.8-10.8)
[2024-08-09 13:27] LABS: Alanine Aminotransferase 24 U/L (12-78); Albumin Level 4.3 g/dl (3.5-5.0); Albumin/Globulin Ratio 1.8 (1.1-1.8); Alkaline Phosphatase 72 U/L (38-126); Aspartate Amino Transferase 35 U/L (14-36); Bilirubin,Total 0.6 mg/dl (0.2-1.3); Blood Urea Nitrogen 18 mg/dl (7-17); Calcium 9.6 mg/dl (8.4-10.2); Carbon Dioxide 28 mmol/L (22.0-30.0); Chloride 106 mmol/L (98-107); Creatinine Clearance Estimated 41 mL/min (50-200); Estimated Glomerular Filt Rate 80 ml/min (>60); GFR (African American) 97 ML/MIN (>60); Globulin 2.4 g/dL (1.3-3.2); Glucose 114 mg/dl (74-100); Sodium 139 mmol/L (136-145); Total Protein,Serum 6.7 g/dl (6.3-8.2)
[2024-08-09 13:41] LABS: Troponin I < 0.01 ng/ml (0.00-0.034)
--- NOTE | 2024-08-09 13:43 | PC.NURSE ---
PT GOING TO CT
[2024-08-09] MEDS: SODIUM CHLORIDE 0.9% 10ML SYR (RAD ONLY) 10 ML IV (13:51)
[2024-08-09] MEDS: IOPAMIDOL-370 (76%);100ML BOTTLE 80 ML IV (13:51)
[2024-08-09] MEDS: 0.9 % SODIUM CHLORIDE 50 ML VIAL IV (13:51)
--- NOTE | 2024-08-09 14:18 | PC.NURSE ---
Patient got up and is walking to the bathroom.
--- NOTE | 2024-08-09 15:05 | PC.NURSE ---
Called radiology to check on cta read
--- NOTE | 2024-08-09 16:16 | PC.NURSE ---
Dr Bird at bedside
== END 2024-08-09 16:26 | disposition home or self-care (01) ==
PROVIDERS: Emergency Medicine; Emergency Provider Emergency Medicine; PCP Family Medicine
DX: M25.512 Pain in left shoulder (principal); R07.9 Chest pain, unspecified; R05.9 Cough, unspecified
CPT/HCPCS: 71275; 80053; 84484; 85025; 87636; 93005; 96374; 99285; J1885; Q9967

== ENCOUNTER 2024-10-02 12:36 | Outpatient (CLI) | payer MEDICARE, SELFPAY ==
--- OUTSIDE RECORDS SUMMARY | 2024-10-04 12:37 | XMS_ITS | Data Portability ---
Author Organization [facility], [facility] [place] [facility] Address [address] [place] [address] Care Team Providers Care Director Of Adult Epilepsy Name Role Phone ARIK MARITZA Primary Care Provider Assessment No assessment recorded. Plan of Treatment Reminders Order Date Submit Date Provider Last Modified By Organization Details Last Modified Time Details Appointments None recorded. Lab None recorded. Referral None recorded. Procedures None recorded. Surgeries None recorded. Imaging None recorded. Medication Orders clindamycin 1 % lotion 2023 024 [email or web address] [facility], [address] [place] [address], [address], 15:48:02 Patient TargetsNo targets recorded. Patient InstructionsNo instructions recorded. Reason for Referral None Reported. Medical Equipment None Reported. Allergies Allergen ID Allergen Name Allergen Category Reaction Reaction Severity Criticality Documentation Date Start Date Code Code System Note Provider Name and Address Organization Details Recorded Time 469201 Product containin g penicilli n (product) medicatio n hives Not available Not available 02/28/2024 78739 8001 SNOMED Kylah Shell [facility] 15:26:55 [id number] quinidine Not available hair loss Not available Not available 02/28/2024 9068 RxNorm SOB Kylah Shell [facility] 15:27:54 Medications Name Sig Start Date Stop Date Status Note LastModified by Organization Details LastModified Time clindamycin 1 % lotion APPLY A THIN LAYER TO THE AFFECTED AREA(S) BY TOPICAL QHS 2023 active Not Available Not Available Not Avai lable ropinirole active Not Available Not Av ailable Not Available hydrochlorothi azide active Not Available Not Available Not Available Synthroid active Not Available Not Yudelka ilable Not Available metoprolol succinate active Not Available Not Available No t Available Centrum Silver active Not Available No t Available Not Available Vitamin D3 active Not Available Not Av ailable Not Available celecoxib active Not Available Not Yudelka ilable Not Available Tylenol P.M. active Not Available Not Available Not Available PreserVision AREDS active Not Available Not Available Not Available doxycycline hyclate 50 mg tablet Take 1 tablet twice a day by oral route. 2023 active Not Available Not Available Not Avai lable Vitals None Recorded Social History None recorded. Functional Status None recorded. Mental Status None recorded. Family History Nothing Reported. Medical History No medical history recorded. Gynecological HistoryNo gynecological history recorded. Obstetrics History GPAL:G 0 P 0 0 0 0 Past Encounters Encounter ID Performer Location Encounter Start Date Encounter Closed Date Diagnosis/Indication Diagnosis SNOMED-CT Code Diagnosis ICD10 Code Diagnosis Note [id number] QM[facility] [address] 08/26/2016 05:40:37 08/26/2016 05:40:37 [id number] SAL FLOWERS MD [address] [address] [place] [address] 02/28/2024 14:52:28 02/29/2024 16:17:36 Multiple benign melanocytic nevi 818867489 D22.5 - Benign lesions seen on exam today- SPF 30 or higher broad-spec trum sunscreen recommende d with re-applica tion every 2 hours- Discussed sun protection measures, including wide-brimm ed hat, sun-protec tive clothing, and avoidance of sun during peak hours of 10am-4pm- Instructed to monitor for changes and to call us for appointmen t with any changing or worrisome lesions Seborrheic keratosis 394 [id number] L82.1 - Benign overgrowth s of skin - Hereditary Senile angioma 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 I 78.1 - Benign blood vessel growths - Hereditary Solar lentigo 81788089 L 81.4 - Benign brown spots - Sun-induce d Rosacea 731553574 L71.8 L70.0 Nature of the diagnosis discussed furtherAdv ised to stop Dial on the face, switch to DoveRecomm end rx clindamyci n 1% lotion, AAA qhsCall if not improving, will send in oral medication Health Concerns Section Related Observation LastModified by Organization Detai ls LastModified Time None Recorded Concern Status LastModified by Organization Details LastModified Time None Recorded Advance Directives Directive None Recorded Payers Insurance Date Sequence Insurance Name Policy Number Policy Michelle Covered Member ID Michelle Member ID Guarantor Name 02/29/2024 1 [facility] Tri Ricardo [id number] Tri Ricardo Notes Date Note Type Note Provider Name and Address Organization Details Recorded Time 02/28/2024 text/html Last seen 2021Hx of rosacea, rx doxy prn, rx metro 0.75% gel Waist up, no skin cancer hxI have some place on the chin and skin tags SAL FLOWERS MD [address] [place] [address], [phone], [facility] 02/28/2024 15:54:09 OBGyn Episode No OBEpisode recorded.
--- OUTSIDE RECORDS SUMMARY | 2024-10-04 12:38 | XMS_ITS | Data Portability ---
Author Organization [facility] [employer] [employer] AD[facility] Address [address] [place] [id number] Assessment No assessment recorded. Plan of Treatment Reminders Order Date Submit Date Provider Last Modified By Organization Details Last Modified Time Details Appointments None recorded. Lab CMP, serum or plasma 2022 023 [facility] (Laboratory), [address] [place], [address], 3 17:57:17 CBC w/ auto diff 2022 023 [facility] (Laboratory), [address] [place], [address], 3 17:06:40 TSH, serum or plasma 2022 023 [facility] (Laboratory), [address] [place], [address], 3 17:57:15 vitamin B12, serum 2022 023 [facility] (Laboratory), [address] [place], [address], 3 17:58:21 vitamin D, 25-hydroxy, total, serum 2022 023 [facility] (Laboratory), [address] [place], [address], 3 08:15:13 HbA1c (hemoglobin A1c), blood 2022 023 [facility] (Laboratory), [address] [place], [address], 3 17:35:58 lipid panel, serum 2022 023 [facility] (Laboratory), [address] [place], [address], 3 17:58:20 influenza virus A + B + SARS-CoV-2 (COVID19) Ag panel, rapid IA, upper respiratory specimen 2021 [facility] Not available 09:36:18 HbA1c (hemoglobin A1c), blood 2021 [facility] (Laboratory), [address] [place], [address], 2 12:39:57 lipid panel, serum 2021 022 [facility] (Laboratory), [address] [place], [address], 2 12:54:59 CBC w/ auto diff 2021 [facility] (Laboratory), [address] [place], [address], 2 12:20:03 CMP, serum or plasma 2021 022 [facility] (Laboratory), [address] [place], [address], 2 12:54:58 25-hydroxyv itamin D2 + 25-hydroxyv itamin D3, QN, serum or plasma 2021 022 [facility] (Laboratory), [address] [place], [address], 16:46:28 TSH + free T4, serum 2021 tpardini [facility] (Laboratory), [address] [place], [address], 16:46:28 Referral orthopedic surgeon referral 2022 023 lang Meier MD, [address] [facility], [address], [place], [address], 3 08:12:59 Procedures None recorded. Surgeries None recorded. Imaging None recorded. Medication Orders Medrol (Jeet) 4 mg tablets in a dose pack 2022 023 [facility]/Pharmacy #[id number], [address] [place], [address], 3 11:12:01 Zyrtec 10 mg capsule 2022 023 [facility]/Pharmacy #[id number], [address] [facility] [place], [address], 3 10:37:05 Celebrex 100 mg capsule 2022 023 [facility], [address] [place] [address], [address], 3 10:37:01 Zithromax Z-Jeet 250 mg tablet 2022 023 [facility], [address] [place] [address], [address], 3 09:54:48 Medrol (Jeet) 4 mg tablets in a dose pack 2022 023 [facility], [address] [place] [address], [address], 3 09:54:57 albuterol sulfate HFA 90 mcg/actuati on aerosol inhaler 2022 023 [facility], [address] [place] [address], [address], 3 15:40:56 benzonatate 200 mg capsule 2021 [facility]/Pharmacy #3016, [address] [place], [address], 3 09:54:51 azithromyci n 250 mg tablet 2021 [facility] [address] [place], [address], 3 09:54:48 Medrol (Jeet) 4 mg tablets in a dose pack 2021 [facility] [address] [place], [address], 3 09:54:57 albuterol sulfate HFA 90 mcg/actuati on aerosol inhaler 2021 [facility] [address] [place], [address], 2 15:38:11 Patient TargetsNo targets recorded. Patient InstructionsNo instructions recorded. Reason for Referral Orthopedic Surgeon Referral for Disorder of rotator cuff Referring Physician: Farhad Norman, Family Medicine, Encounter Date: 10/07/2022 Results Created Date Observation Date Name Description Value Unit Range Abnormal Flag Note LastModifiedBy Organization Detail LastModifiedTime 02/18/2002/17/2022 CBC AUTO W DIFF WBC 4.2 10 4.5-11 .5 low Not Available [facility] (Lab Registration) [address] [place], [address], 02/17/2022 12:20:03 02/18/20 22 02/17/2022 CBC AUTO W DIFF RBC 4.51 10 4.25-5 .57 Not Available [facility] (Lab Registration) [address] [place], [address], 02/17/2022 12:20:03 02/18/20 22 02/17/2022 CBC AUTO W DIFF HGB 13.7 g/dL 12.0-1 5.7 Not Available [facility] (Lab Registration) [address] [place], [address], 02/17/2022 12:20:03 02/18/20 22 02/17/2022 CBC AUTO W DIFF HCT 40.7 % 36.0-4 7.0 Not Available [facility] (Lab Registration) [address] [place], [address], 02/17/2022 12:20:03 02/18/20 22 02/17/2022 CBC AUTO W DIFF MCV 90.2 fL 80-95 Not Available [facility] (Lab Registration) [address] [place], [address], 02/17/2022 12:20:03 02/18/20 22 02/17/2022 CBC AUTO W DIFF MCH 30.4 pg 27.0-3 4.0 Not Available [facility] (Lab Registration) [address] [place], [address], 02/17/2022 12:20:03 02/18/20 22 02/17/2022 CBC AUTO W DIFF MCHC 33.7 g/dL 32.0-3 6.0 Not Available [facility] (Lab Registration) [address] [place], [address], 02/17/2022 12:20:03 02/18/20 22 02/17/2022 CBC AUTO W DIFF platelet count 200 10 150-45 0 Not Available [facility] (Lab Registration) [address] [place], [address], 02/17/2022 12:20:03 02/18/20 22 02/17/2022 CBC AUTO W DIFF RDW 12.9 % 12.3-1 5.1 Not Available [facility] (Lab Registration) [address] [place], [address], 02/17/2022 12:20:03 02/18/20 22 02/17/2022 CBC AUTO W DIFF MPV 9.7 fL 7.4-10 .4 Not Available [facility] (Lab Registration) [address] [place], [address], 02/17/2022 12:20:03 02/18/20 22 02/17/2022 CBC AUTO W DIFF granulocyte% 41.8 % 40-75 Not Available [facility] (Lab Registration) [address] [place], [address], 02/17/2022 12:20:03 02/18/20 22 02/17/2022 CBC AUTO W DIFF lymphocyte% 39.6 % 15-57 Not Available [facility] (Lab Registration) [address] [place], [address], 02/17/2022 12:20:03 02/18/20 22 02/17/2022 CBC AUTO W DIFF monocyte% 13.7 % 4.0-12 .0 high Not Available [facility] (Lab Registration) [address] [place], [address], 02/17/2022 12:20:03 02/18/20 22 02/17/2022 CBC AUTO W DIFF eosinophil% 4.2 % 0.0-4. 0 high Not Available [facility] (Lab Registration) [address] [place], [address], 02/17/2022 12:20:03 02/18/20 22 02/17/2022 CBC AUTO W DIFF basophil% 0.7 % 0.0-1. 0 Not Available [facility] (Lab Registration) [address] [place], [address], 02/17/2022 12:20:03 02/18/20 22 02/17/2022 CBC AUTO W DIFF immature granulocytes % 0.0 % 0.0-0. 8 Not Available [facility] (Lab Registration) [address] [place], [address], 02/17/2022 12:20:03 02/18/20 22 02/17/2022 CBC AUTO W DIFF granulocyte# 1.77 10 Not Available [facility] (Lab Registration) [address] [place], [address], 02/17/2022 12:20:03 02/18/20 22 02/17/2022 CBC AUTO W DIFF lymphocyte# 1.68 10 Not Available [facility] (Lab Registration) [address] [place], [address], 02/17/2022 12:20:03 02/18/20 22 02/17/2022 CBC AUTO W DIFF monocyte# 0.58 10 Not Available [facility] (Lab Registration) [address] [place], [address], 02/17/2022 12:20:03 02/18/20 22 02/17/2022 CBC AUTO W DIFF eosinophil# 0.18 10 Not Available [facility] (Lab Registration) [address] [place], [address], 02/17/2022 12:20:03 02/18/20 22 02/17/2022 CBC AUTO W DIFF basophil# 0.03 10 Not Available [facility] (Lab Registration) [address] [place], [address], 02/17/2022 12:20:03 02/18/20 22 02/17/2022 CBC AUTO W DIFF immature granulocytes # 0.00 10 Not Available [facility] (Lab Registration) [address] [place], [address], 02/17/2022 12:20:03 02/18/20 22 02/17/2022 CBC AUTO W DIFF manual differential NO Not Available [facility] (Lab Registration) [address] [place], [address], 02/17/2022 12:20:03 02/18/20 22 02/17/2022 CBC AUTO W DIFF note Unles s other ramirez noted testi ng perfo rmed at: [facility] [address] [place] [address] [phone] Pete escobedo MD CLIA: [id number] Not Available [facility] (Lab Registration) [address] [place], [address], 02/17/2022 12:20:03 02/18/20 22 02/17/2022 HEMOG LOBIN A1C glycosylated hemoglobin A1C 6.1 % 4.5-6. 2 Not Available [facility] (Lab Registration) [address] [place], [address], 02/17/2022 12:39:57 02/18/20 22 02/17/2022 HEMOG LOBIN A1C estimated average glucose 128 mg/dL 82-131 Not Available [facility] (Lab Registration) [address] [place], [address], 02/17/2022 12:39:57 02/18/20 22 02/17/2022 HEMOG LOBIN A1C note Celia escobedo other ramirez noted testi ng perfo rmed at: [facility] [address] [place] [address] [phone] Pete escobedo MD CLIA: [id number] Not Available [facility] (Lab Registration) [address] [place], [address], 02/17/2022 12:39:57 02/18/20 22 02/17/2022 THYRO ID STIMU LATIN G HORMO NE thyroid stimulating hormone 1.58 mIU/m L 0.34-4 .80 Not Available [facility] (Lab Registration) [address] [place], [address], 02/17/2022 12:54:56 02/18/20 22 02/17/2022 THYRO ID STIMU LATIN G HORMO NE note Celia escobedo other ramirez noted testi ng perfo rmed at: [facility] [address] [place] [address] [phone] Pete escobedo MD CLIA: [id number] Not Available [facility] (Lab Registration) [address] [place], [address], 02/17/2022 12:54:56 02/18/20 22 02/17/2022 T4 FREE T4,free 1.09 NG/mL 0.76-1 .46 Effec tive today 013 new Refer ence Range . Not Available [facility] (Lab Registration) [address] [place], [address], 02/17/2022 12:54:57 02/18/20 22 02/17/2022 T4 FREE note Unles s other ramirez noted testi ng perfo rmed at: [facility] [address] [place] [address] [phone] Pete escobedo MD CLIA: [id number] Not Available [facility] (Lab Registration) [address] [place], [address], 02/17/2022 12:54:57 02/18/20 22 02/17/2022 COMP METAB OLIC PANEL sodium 142 mmol/ L 136-14 5 Not Available [facility] (Lab Registration) [address] [place], [address], 02/17/2022 12:54:58 02/18/20 22 02/17/2022 COMP METAB OLIC PANEL potassium 4.7 mmol/ L 3.5-5. 1 Not Available [facility] (Lab Registration) [address] [place], [address], 02/17/2022 12:54:58 02/18/20 22 02/17/2022 COMP METAB OLIC PANEL chloride 104 mmol/ L 98-107 Not Available [facility] (Lab Registration) [address] [place], [address], 02/17/2022 12:54:58 02/18/20 22 02/17/2022 COMP METAB OLIC PANEL carbon dioxide 33 mmol/ L 21-32 high Not Available [facility] (Lab Registration) [address] [place], [address], 02/17/2022 12:54:58 02/18/20 22 02/17/2022 COMP METAB OLIC PANEL anion gap 5.0 Not Available [facility] (Lab Registration) [address] [place], [address], 02/17/2022 12:54:58 02/18/20 22 02/17/2022 COMP METAB OLIC PANEL glucose 95 mg/dL 70-110 Not Available [facility] (Lab Registration) [address] [place], [address], 02/17/2022 12:54:58 02/18/20 22 02/17/2022 COMP METAB OLIC PANEL blood urea nitrogen 25 mg/dL 7-18 high Not Available [facility] (Lab Registration) [address] [place], [address], 02/17/2022 12:54:58 02/18/20 22 02/17/2022 COMP METAB OLIC PANEL creatinine 1.1 mg/dL 0.6-1. 0 high Not Available [facility] (Lab Registration) [address] [place], [address], 02/17/2022 12:54:58 02/18/20 22 02/17/2022 COMP METAB OLIC PANEL BUN/creatini ne ratio 22.7 ratio 9-21 high Not Available [facility] (Lab Registration) [address] [place], [address], 02/17/2022 12:54:58 02/18/20 22 02/17/2022 COMP METAB OLIC PANEL estimated glom filtration rate 51 mL/mi n >60- low Not Available [facility] (Lab Registration) [address] [place], [address], 02/17/2022 12:54:58 02/18/20 22 02/17/2022 COMP METAB OLIC PANEL total protein 7.0 g/dL 6.4-8. 2 Not Available [facility] (Lab Registration) [address] [place], [address], 02/17/2022 12:54:58 02/18/20 22 02/17/2022 COMP METAB OLIC PANEL albumin 4.1 g/dL 3.4-5. 0 Not Available [facility] (Lab Registration) [address] [place], [address], 02/17/2022 12:54:58 02/18/20 22 02/17/2022 COMP METAB OLIC PANEL calcium 9.9 mg/dL 8.5-10 .1 Not Available [facility] (Lab Registration) [address] [place], [address], 02/17/2022 12:54:58 02/18/20 22 02/17/2022 COMP METAB OLIC PANEL corrected calcium 9.8 mg/dL 8.5-10 .1 Not Available [facility] (Lab Registration) [address] [place], [address], 02/17/2022 12:54:58 02/18/20 22 02/17/2022 COMP METAB OLIC PANEL bilirubin total 0.4 mg/dL 0.4-1. 5 Not Available [facility] (Lab Registration) [address] [place], [address], 02/17/2022 12:54:58 02/18/20 22 02/17/2022 COMP METAB OLIC PANEL AST (SGOT) 38 U/L 15-37 high Not Available [facility] (Lab Registration) [address] [place], [address], 02/17/2022 12:54:58 02/18/20 22 02/17/2022 COMP METAB OLIC PANEL ALT (SGPT) 50 U/L 12-78 Not Available [facility] (Lab Registration) [address] [place], [address], 02/17/2022 12:54:58 02/18/20 22 02/17/2022 COMP METAB OLIC PANEL alk phosphatase 91 U/L 53-141 Not Available [facility] (Lab Registration) [address] [place], [address], 02/17/2022 12:54:58 02/18/20 22 02/17/2022 COMP METAB OLIC PANEL note Unles s other ramirez noted testi ng perfo rmed at: [facility] [address] [place] [address] [phone] Pete escobedo MD CLIA: [id number] Not Available [facility] (Lab Registration) [address] [place], [address], 02/17/2022 12:54:58 02/18/20 22 02/17/2022 LIPID PANEL triglyceride 262 mg/dL 20-200 high The Natio nal Juliet stero l Educa tion Progr am (NCEP ) has set the follo wing guide lines for Fasti ng Trigl yceri pedro: AMARILIS L: <150 mg/dL BORDE RLINE HIGH: 150 - 199 mg/dL HIGH: 200 - 499 mg/dL VERY HIGH: > or =500 mg/dL Not Available [facility] (Lab Registration) [address] [place], [address], 02/17/2022 12:54:59 02/18/20 22 02/17/2022 LIPID PANEL cholesterol 236 mg/dL 0-200 high The Natio nal Juliet stero l Educa tion Progr am (NCEP ) has set the follo wing guide lines for Fasti ng Juliet stero l: ROWENA ABLE: <200 mg/dL BORDE RLINE HIGH: 200 - 239 mg/dL HIGH: > or =240 mg/dL Not Available [facility] (Lab Registration) [address] [place], [address], 02/17/2022 12:54:59 02/18/20 22 02/17/2022 LIPID PANEL HDL cholesterol 39 mg/dL 60- low The Natio nal Juliet stero l Educa tion Progr am ([facility] ) has set the follo wing guide lines for Fasti ng HDL Juliet stero l: LOW HDL: <40 mg/dL AMARILIS L: 40 - 60 mg/dL ROWENA ABLE: >60 mg/dL Not Available [facility] (Lab Registration) [address], [place], [address], 02/17/2022 12:54:59 02/18/20 22 02/17/2022 LIPID PANEL LDL calculated 145 mg/dL 100- The Natio nal Juliet stero l Educa tion Progr am ([facility] ) has set the follo wing guide lines for Fasti ng LDL Juliet stero l: OPTIM AL: < 100 mg/dL LOW RISK: 100 - 129 mg/dL BORDE RLINE HIGH: 130 - 159 mg/dL HIGH: 160 - 189 mg/dL VERY HIGH: > or = 190 mg/dL Not Available [facility] (Lab Registration) [address], [place], [address], 02/17/2022 12:54:59 02/18/20 22 02/17/2022 LIPID PANEL chol/HDL ratio 6 ratio -5 high Not Available [facility] (Lab Registration) [address], [place], [address], 02/17/2022 12:54:59 02/18/20 22 02/17/2022 LIPID PANEL note Unles s other ramirez noted testi ng perfo rmed at: [facility] [address] [place] [address] [phone] Pete escobedo MD CLIA: [id number] Not Available [facility] (Lab Registration) [address] [place], [address], 02/17/2022 12:54:59 02/18/20 22 02/17/2022 VITAM IN D3 25-OH note Unles s other ramirez noted testi ng perfo rmed at: [facility] [address] [place] [address] [phone] Pete escobedo MD CLIA: [id number] Not Available [facility] (Lab Registration) [address] [place], [address], 02/18/2022 06:14:40 02/18/20 22 02/18/2022 VITAM IN D3 25-OH vitamin D, 25-hydroxy 34.8 NG/mL 30.0-1 00.0 Vitam in D defic iency has been defin ed by the Insti tute of Medic ine and an Endoc rine Socie ty pract ice guide line as a level of serum 25-OH vitam in D less than 20 ng/mL (1,2) . The Endoc rine Socie ty went on to furth er defin e vitam in D insuf ficie ncy as a level betwe en 21 and 29 ng/mL (2). 1. IOM (Inst itute of Medic ine). 2010. Dieta ry refer juan luise maria elena es for calci um and D. Callie george [place]: [facility] . 2. Janeth ortez MF, Pacheco carney [place], Gary off-F errar i MCCLURE, et al. Evalu ation , treat ment, and preve ntion of vitam in D defic iency : an Endoc rine Socie ty clini [place] pract ice guide line. JCEM. 2010; 96(7) :1911 -30. Perfo rmed at: - [facility] n [address] [facility], [place] [id number] [facility] Lab Direc tor: Presley sun PhD, Phone : [phone] SENT TO REFER ENCE LAB Not Available [facility] (Lab Registration) [address] [place], [address], 02/18/2022 06:14:40 04/26/20 22 04/26/2022 influ brenden virus A + B + SARS- CoV-2 (COVI D19) Ag panel , rapid IA, upper respi rator y speci men FLU A negati ve Not Available [address], [address], 04/23/2022 15:36:41 04/26/20 22 04/26/2022 influ brenden virus A + B + SARS- CoV-2 (COVI D19) Ag panel , rapid IA, upper respi rator y speci men FLU B negati ve Not Available [address], [address], 04/23/2022 15:36:41 04/26/20 22 04/26/2022 influ brenden virus A + B + SARS- CoV-2 (COVI D19) Ag panel , rapid IA, upper respi rator y speci men SARS COV + SARS OV 2 negati ve Not Available [address], [place], [address], 04/23/2022 15:36:41 08/26/19 23 08/25/2022 CBC AUTO W DIFF WBC 4.8 10 4.5-11 .5 Not Available [facility] (Lab Registration) [address], [place], [address], 08/25/2022 17:06:40 08/26/19 23 08/25/2022 CBC AUTO W DIFF RBC 4.56 10 4.25-5 .57 Not Available [facility] (Lab Registration) [address], [place], [address], 08/25/2022 17:06:40 08/26/19 23 08/25/2022 CBC AUTO W DIFF HGB 13.7 g/dL 12.0-1 5.7 Not Available [facility] (Lab Registration) [address], [place], [address], 08/25/2022 17:06:40 08/26/19 23 08/25/2022 CBC AUTO W DIFF HCT 41.2 % 36.0-4 7.0 Not Available [facility] (Lab Registration) [address], [place], [address], 08/25/2022 17:06:40 08/26/19 23 08/25/2022 CBC AUTO W DIFF MCV 90.4 fL 80-95 Not Available [facility] (Lab Registration) [address] [place], [address], 08/25/2022 17:06:40 08/26/19 23 08/25/2022 CBC AUTO W DIFF MCH 30.0 pg 27.0-3 4.0 Not Available [facility] (Lab Registration) [address] [place], [address], 08/25/2022 17:06:40 08/26/19 23 08/25/2022 CBC AUTO W DIFF MCHC 33.3 g/dL 32.0-3 6.0 Not Available [facility] (Lab Registration) [address] [place], [address], 08/25/2022 17:06:40 08/26/19 23 08/25/2022 CBC AUTO W DIFF platelet count 223 10 150-45 0 Not Available [facility] (Lab Registration) [address] [place], [address], 08/25/2022 17:06:40 08/26/19 23 08/25/2022 CBC AUTO W DIFF RDW 12.9 % 12.3-1 5.1 Not Available [facility] (Lab Registration) [address] [place], [address], 08/25/2022 17:06:40 08/26/19 23 08/25/2022 CBC AUTO W DIFF MPV 9.4 fL 7.4-10 .4 Not Available [facility] (Lab Registration) [address] [place], [address], 08/25/2022 17:06:40 08/26/19 23 08/25/2022 CBC AUTO W DIFF granulocyte% 48.6 % 40-75 Not Available [facility] (Lab Registration) [address] [place], [address], 08/25/2022 17:06:40 08/26/19 23 08/25/2022 CBC AUTO W DIFF lymphocyte% 34.0 % 15-57 Not Available [facility] (Lab Registration) [address] [place], [address], 08/25/2022 17:06:40 08/26/19 23 08/25/2022 CBC AUTO W DIFF monocyte% 12.8 % 4.0-12 .0 high Not Available [facility] (Lab Registration) [address] [place], [address], 08/25/2022 17:06:40 08/26/19 23 08/25/2022 CBC AUTO W DIFF eosinophil% 3.8 % 0.0-4. 0 Not Available [facility] (Lab Registration) [address] [place], [address], 08/25/2022 17:06:40 08/26/19 23 08/25/2022 CBC AUTO W DIFF basophil% 0.6 % 0.0-1. 0 Not Available [facility] (Lab Registration) [address] [place], [address], 08/25/2022 17:06:40 08/26/19 23 08/25/2022 CBC AUTO W DIFF immature granulocytes % 0.2 % 0.0-0. 8 Not Available [facility] (Lab Registration) [address] [place], [address], 08/25/2022 17:06:40 08/26/19 23 08/25/2022 CBC AUTO W DIFF granulocyte# 2.32 10 Not Available [facility] (Lab Registration) [address] [place], [address], 08/25/2022 17:06:40 08/26/19 23 08/25/2022 CBC AUTO W DIFF lymphocyte# 1.62 10 Not Available [facility] (Lab Registration) [address], [place], [address], 08/25/2022 17:06:40 08/26/19 23 08/25/2022 CBC AUTO W DIFF monocyte# 0.61 10 Not Available [facility] (Lab Registration) [address], [place], [address], 08/25/2022 17:06:40 08/26/19 23 08/25/2022 CBC AUTO W DIFF eosinophil# 0.18 10 Not Available [facility] (Lab Registration) [address] [place], [address], 08/25/2022 17:06:40 08/26/19 23 08/25/2022 CBC AUTO W DIFF basophil# 0.03 10 Not Available [facility] (Lab Registration) [address] [place], [address], 08/25/2022 17:06:40 08/26/19 23 08/25/2022 CBC AUTO W DIFF immature granulocytes # 0.01 10 Not Available [facility] (Lab Registration) [address], [place], [address], 08/25/2022 17:06:40 08/26/19 23 08/25/2022 CBC AUTO W DIFF manual differential NO Not Available [facility] (Lab Registration) [address] [place], [address], 08/25/2022 17:06:40 08/26/19 23 08/25/2022 CBC AUTO W DIFF note Unles s other ramirez noted testi ng perfo rmed at: [facility] [address] [place] [address] [phone] Pete escobedo MD CLIA: [id number] Not Available [facility] (Lab Registration) [address] [place], [address], 08/25/2022 17:06:40 08/26/19 23 08/25/2022 HEMOG LOBIN A1C glycosylated hemoglobin A1C 6.0 % 4.5-6. 2 Not Available [facility] (Lab Registration) [address] [place], [address], 08/25/2022 17:35:57 08/26/19 23 08/25/2022 HEMOG LOBIN A1C estimated average glucose 126 mg/dL 82-131 Not Available [facility] (Lab Registration) [address] [place], [address], 08/25/2022 17:35:57 08/26/19 23 08/25/2022 HEMOG LOBIN A1C note Unles s other ramirez noted testi ng perfo rmed at: [facility] [address] [place] [address] [phone] Pete escobedo MD CLIA: [id number] Not Available [facility] (Lab Registration) [address] [place], [address], 08/25/2022 17:35:57 08/26/19 23 08/25/2022 THYRO ID STIMU LATIN G HORMO NE thyroid stimulating hormone 1.04 mIU/m L 0.34-4 .80 Not Available [facility] (Lab Registration) [address] [place], [address], 08/25/2022 17:57:14 08/26/19 23 08/25/2022 THYRO ID STIMU LATIN G HORMO NE note Unles s other ramirez noted testi ng perfo rmed at: [facility] [address] [place] [address] [phone] Pete escobedo MD CLIA: [id number] Not Available [facility] (Lab Registration) [address] [place], [address], 08/25/2022 17:57:14 08/26/19 23 08/25/2022 COMP METAB OLIC PANEL sodium 141 mmol/ L 136-14 5 Not Available [facility] (Lab Registration) [address] [place], [address], 08/25/2022 17:57:16 08/26/19 23 08/25/2022 COMP METAB OLIC PANEL potassium 4.4 mmol/ L 3.5-5. 1 Not Available [facility] (Lab Registration) [address] [place], [address], 08/25/2022 17:57:16 08/26/19 23 08/25/2022 COMP METAB OLIC PANEL chloride 102 mmol/ L 98-107 Not Available [facility] (Lab Registration) [address] [place], [address], 08/25/2022 17:57:16 08/26/19 23 08/25/2022 COMP METAB OLIC PANEL carbon dioxide 30 mmol/ L 21-32 Not Available [facility] (Lab Registration) [address] [place], [address], 08/25/2022 17:57:16 08/26/19 23 08/25/2022 COMP METAB OLIC PANEL anion gap 9.0 Not Available [facility] (Lab Registration) [address] [place], [address], 08/25/2022 17:57:16 08/26/19 23 08/25/2022 COMP METAB OLIC PANEL glucose 105 mg/dL 70-110 Not Available [facility] (Lab Registration) [address] [place], [address], 08/25/2022 17:57:16 08/26/19 23 08/25/2022 COMP METAB OLIC PANEL blood urea nitrogen 25 mg/dL 7-18 high Not Available [facility] (Lab Registration) [address] [place], [address], 08/25/2022 17:57:16 08/26/19 23 08/25/2022 COMP METAB OLIC PANEL creatinine 1.2 mg/dL 0.6-1. 0 high Not Available [facility] (Lab Registration) [address] [place], [address], 08/25/2022 17:57:16 08/26/19 23 08/25/2022 COMP METAB OLIC PANEL BUN/creatini ne ratio 20.8 ratio 9-21 Not Available [facility] (Lab Registration) [address] [place], [address], 08/25/2022 17:57:16 08/26/19 23 08/25/2022 COMP METAB OLIC PANEL estimated glom filtration rate 46 mL/mi n >60- low Not Available [facility] (Lab Registration) [address] [place], [address], 08/25/2022 17:57:16 08/26/19 23 08/25/2022 COMP METAB OLIC PANEL total protein 7.3 g/dL 6.4-8. 2 Not Available [facility] (Lab Registration) [address] [place], [address], 08/25/2022 17:57:16 08/26/19 23 08/25/2022 COMP METAB OLIC PANEL albumin 4.1 g/dL 3.4-5. 0 Not Available [facility] (Lab Registration) [address] [place], [address], 08/25/2022 17:57:16 08/26/19 23 08/25/2022 COMP METAB OLIC PANEL calcium 10.4 mg/dL 8.5-10 .1 high Not Available [facility] (Lab Registration) [address] [place], [address], 08/25/2022 17:57:16 08/26/19 23 08/25/2022 COMP METAB OLIC PANEL corrected calcium 10.3 mg/dL 8.5-10 .1 high Not Available [facility] (Lab Registration) [address] [place], [address], 08/25/2022 17:57:16 08/26/19 23 08/25/2022 COMP METAB OLIC PANEL bilirubin total 0.5 mg/dL 0.4-1. 5 Not Available [facility] (Lab Registration) [address] [place], [address], 08/25/2022 17:57:16 08/26/19 23 08/25/2022 COMP METAB OLIC PANEL AST (SGOT) 36 U/L 15-37 Not Available [facility] (Lab Registration) [address] [place], [address], 08/25/2022 17:57:16 08/26/19 23 08/25/2022 COMP METAB OLIC PANEL ALT (SGPT) 53 U/L 12-78 Not Available [facility] (Lab Registration) [address], [place], [address], 08/25/2022 17:57:16 08/26/19 23 08/25/2022 COMP METAB OLIC PANEL alk phosphatase 79 U/L 53-141 Not Available [facility] (Lab Registration) [address], [place], [address], 08/25/2022 17:57:16 08/26/19 23 08/25/2022 COMP METAB OLIC PANEL note Unles s other ramirez noted testi ng perfo rmed at: [facility] [address] [facility] [place] [address] [phone] Pete escobedo MD CLIA: [id number] Not Available [facility] (Lab Registration) [address] [place], [address], 08/25/2022 17:57:16 08/26/19 23 08/25/2022 LIPID PANEL triglyceride 317 mg/dL 20-200 high The Natio nal Juliet stero l [employer]ca tion Progr am (NCEP ) has set the follo wing guide lines for Fasti ng Trigl yceri pedro: AMARILIS L: <150 mg/dL BORDE RLINE HIGH: 150 - 199 mg/dL HIGH: 200 - 499 mg/dL VERY HIGH: > or =500 mg/dL Not Available [facility] (Lab Registration) [address] [place], [address], 08/25/2022 17:58:19 08/26/19 23 08/25/2022 LIPID PANEL cholesterol 267 mg/dL 0-200 high The Natio nal Juliet [employer] l [employer]ca t[employer] Progr am (ALEP ) has set the follo wing guide lines for Fasti ng Juliet stero l: ROWENA ABLE: <200 mg/dL BORDE RLINE HIGH: 200 - 239 mg/dL HIGH: > or =240 mg/dL Not Available [facility] (Lab Registration) [address] [place], [address], 08/25/2022 17:58:19 08/26/19 23 08/25/2022 LIPID PANEL HDL cholesterol 40 mg/dL 60- low The Natio nal Juliet [employer] l [employer]ca t[employer] Progr am (NCEP ) has set the follo wing guide lines for Fasti ng HDL Juliet stero l: LOW HDL: <40 mg/dL AMARILIS L: 40 - 60 mg/dL ROWENA ABLE: >60 mg/dL Not Available [facility] (Lab Registration) [address] [place], [address], 08/25/2022 17:58:19 08/26/19 23 08/25/2022 LIPID PANEL LDL calculated 164 mg/dL 100- The Natio nal Juliet st[employer] l [employer]ca tion Progr am (NCEP ) has set the follo wing guide lines for Fasti ng LDL Juliet stero l: OPTIM AL: < 100 mg/dL LOW RISK: 100 - 129 mg/dL BORDE RLINE HIGH: 130 - 159 mg/dL HIGH: 160 - 189 mg/dL VERY HIGH: > or = 190 mg/dL Not Available [facility] (Lab Registration) [address] [place], [address], 08/25/2022 17:58:19 08/26/19 23 08/25/2022 LIPID PANEL chol/HDL ratio 7 ratio -5 high Not Available [facility] (Lab Registration) [address] [place], [address], 08/25/2022 17:58:19 08/26/19 23 08/25/2022 LIPID PANEL note Moiraes s other ramirez noted testi ng perfo rmed at: [facility] [address] [place] [address] [phone] Pete escobedo MD CLIA: [id number] Not Available [facility] (Lab Registration) [address] [place], [address], 08/25/2022 17:58:19 08/26/19 23 08/25/2022 VITAM IN B12 vitamin B12 740 pg/mL 193-98 6 Not Available [facility] (Lab Registration) [address] [place], [address], 08/25/2022 17:58:21 08/26/19 23 08/25/2022 VITAM IN B12 note Celia s other ramirez noted testi ng perfo [facility]med [facility] [address] [place] [address] [phone] Pete escobedo MD CLIA: [id number] Not Available [facility] (Lab Registration) [address] [place], [address], 08/25/2022 17:58:21 08/26/19 23 08/25/2022 VITAM IN D TOTAL (D2+D 3) vitamin D25 (D2+D3) 29.9 NG/mL 30-100 low Not Available [facility] (Lab Registration) [address] [place], [address], 08/25/2022 17:58:23 08/26/19 23 08/25/2022 VITAM IN D TOTAL (D2+D 3) note Moiraes s other ramirez noted testi ng perfo rmed at: [facility] [address] [place] [address] [phone] Pete escobedo MD CLIA: [id number] Not Available [facility] (Lab Registration) [address], [place], [address], 08/25/2022 17:58:23 Result Notes None recorded. Problems Name Problem SNOMED Code Status Onset Date Resolution Date Notes Provider Name and Address Organization Details Recorded Time Hypertensive disorder 84741123 Active 2021 Not Available [facility] 3 18:09:05 Hypothyroidis m 48761936 Active 2021 Not Available [facility] 3 18:09:05 Hyperglycemia 11550859 Active 2021 Not Available [facility] 3 18:09:06 Hypercholeste rolemia 61484408 Active 2021 Not Available [facility] 3 18:09:05 History of malignant neoplasm of breast 771751186 Active 2021 Not Available [facility] 3 18:09:05 Obesity 525296447 Active 2021 Not Available [facility] 3 18:09:05 Sleep apnea 76422137 Active 2021 Not Available [facility] 3 18:09:06 Restless legs 35108598 Active 2021 Not Available [facility] 3 18:09:05 Gastroesophag eal reflux disease 744902787 Active 2021 Not Available [facility] 3 18:09:05 Hyperlipidemi a 91348277 Active 2021 Not Available [facility] 3 18:09:06 Abnormal vasomotor function 06536377 Active 2021 Not Available [facility] 3 18:09:06 Osteoarthriti s 950695633 Active 2022 Not Available [facility] 3 18:09:05 Problem Notes None recorded. Procedures Surgical History Date Name Laterality Status Provider Name and Address Organization Details Recorded Time 08/26/19 23 Medicare Annual Wellness Visit Health Risk Assessment completed India Callesi [place] [facility] [place] & [place] 08/25/2022 10:00:34 02/18/20 22 Skin Tag Removal completed Farhad Norman MD [address] [place], [address] [place] [facility] [place] 02/17/2022 10:17:05 08/26/19 21 Date of Last Colonoscopy completed Lauren Yuniel [place] [facility] [place] 08/19/2022 11:26:17 08/26/19 21 Colonoscopy completed Lauren Yuniel [place] [facility] [place] 08/19/2022 11:29:55 05/23/19 12 Breast Surgery completed Laura Short [place] [facility] [place] 04/23/2022 15:17:03 05/23/19 06 Joint Replacement completed India Callesi [place] [facility] [place] 02/17/2022 08:44:23 Carpal tunnel surgery [place] Roxy [place] [facility] [place] 02/16/2022 16:46:11 replacement of bilateral knee joints completed Roxy [place] [facility] [place] 02/16/2022 16:46:24 laparoscopic adjustable gastric banding completed Roxy [place] [facility] [place] 02/16/2022 16:46:34 Gallbladder Surgery completed Roxy [place] [facility] [place] 02/16/2022 16:46:46 prophylactic bilateral mastectomy completed Roxy [place] [facility] [place] 02/16/2022 16:47:09 Appendectomy completed Roxy Darcy [place] [facility] [place] 02/16/2022 16:47:15 Appendectomy completed Laura Short [place] [facility] [place] 04/23/2022 15:17:03 Imaging Results None recorded. Procedure Notes None recorded. Medical Equipment None Reported. Allergies Allergen ID Allergen Name Allergen Category Reaction Reaction Severity Criticality Documentation Date Start Date Code Code System Note Provider Name and Address Organization Details Recorded Time 80252 quinine Not available hives Not available Not available 02/16/2022 9071 RxNorm CATA Brennan [facility] & [place] 2 16:42:33 41903 Product containin g penicilli n (product) medicatio n anaphylax is Not available Not available 02/16/2022 33128 8001 SNOMED CATA Sewell [facility] & [place] 2 08:44:12 87463 Famvir medicatio n anaphylax is Not available Not available 02/16/2022 67916 3 RxNorm CATA Sewell [facility] & [place] 2 08:44:12 96985 penicilli n G Not available hives moderate Not available 02/17/2022 7980 RxNorm CATA Sew[place] [facility] & [place] 2 08:44:12 49282 anastrozo le medicatio n arthralgi a (joint pain) severe Not available 08/19/20222015 64040 RxNorm [facility] Not Available [facility] 3 18:09:05 Medications Name Sig Start Date Stop Date Status Note LastModified by Organization Details LastModified Time ropinirole 1 mg tablet Take 3 tablets every day by oral route at bedtime. active Not Available Not Available No t Available cetirizine 10 mg tablet TAKE 1 TABLET BY MOUTH EVERY DAY active Not Available Not Available No t Available azithromyci n 250 mg tablet TAKE 2 TABLETS BY MOUTH TODAY, THEN TAKE 1 TABLET DAILY FOR 4 DAYS 08/25 completed Not Available Not Available Not Available benzonatate 200 mg capsule TAKE 1 CAPSULE BY MOUTH THREE TIMES A DAY FOR 5 DAYS 08/25 completed Not Available Not Available Not Available metoprolol succinate ER 50 mg tablet,exte nded release 24 hr Take 1 tablet every day by oral route for 90 days. active Not Available Not Available No t Available meloxicam 15 mg tablet TAKE 1 TABLET DAILY 10/07 completed Not Available Not Available Not Available lisinopril 20 mg-hydrochl orothiazide 25 mg tablet TAKE 1 TABLET DAILY active Not Available Not Available No t Available Synthroid 112 mcg tablet Take 1 tablet every day by oral route before meals for 90 days. active Not Available Not Available No t Available methylpredn isolone 4 mg tablets in a dose pack TAKE 6 TABLETS ON DAY 1 DIRECTED ON PACKAGE AND DECREASE BY 1 TAB EACH DAY FOR A TOTAL OF 6 DAYS active Not Available Not Available No t Available albuterol sulfate HFA 90 mcg/actuati on aerosol inhaler Inhale 2 puffs every 4 hours by inhalatio n route for 5 days. active Not Available Not Available No t Available celecoxib 100 mg capsule Take 1 capsule every day by oral route. active Not Available Not Available No t Available fluticasone propionate 50 mcg/actuati on nasal spray,suspe nsion USE 2 SPRAYS IN EACH NOSTRIL ONCE DAILY 02/16 completed Not Available Not Available Not Available metronidazo le 0.75 % topical gel active Not Available Not Available Not Available doxycycline hyclate 100 mg tablet TAKE 1 TABLET BY MOUTH TWICE DAILY NEEDED active Not Available Not Available No t Available Milk of Magnesia 60 mls daily active Not Available Not Available No t Available Vitamin D3 1 daily active Not Available Not A vailable Not Available Zyrtec 10 mg capsule Take 1 capsule every day by oral route. 2022 active Not Available Not Available Not Avai lable Centrum Silver Women 1 tablet daily active Not Available Not Available No t Available Vitals Date Recorded Body height Body mass index (BMI) Body weight Body temperature Oxygen saturation Oxygen saturation in Arterial blood by Pulse oximetry Heart rate Respiratory rate Systolic blood pressure Diastolic blood pressure Provider Name and Address Organization Details Last Updated DateTime 3 167.64 cm 51.6 kg/m2 206567. 4 g 97.5 [degF] 96 % 96 % 66 /min 16 /min 106 mm[Hg] 66 mm[Hg] [facility] [place] 3 09:54:25 Date Recorded Body height Body mass index (BMI) Body weight Body temperature Oxygen saturation Oxygen saturation in Arterial blood by Pulse oximetry Heart rate Respiratory rate Systolic blood pressure Diastolic blood pressure Provider Name and Address Organization Details Last Updated DateTime 2 167.64 cm 50.6 kg/m2 529339. 13 g 97.3 [degF] 98 % 98 % 60 /min 18 /min 115 mm[Hg] 65 mm[Hg] India IVY [facility] & [place] 2 08:43:26 Date Recorded Body height Body mass index (BMI) Body weight Body temperature Oxygen saturation Oxygen saturation in Arterial blood by Pulse oximetry Heart rate Respiratory rate Systolic blood pressure Diastolic blood pressure Provider Name and Address Organization Details Last Updated DateTime 3 167.64 cm 50.5 kg/m2 072309. 69 g 97.9 [degF] 95 % 95 % 85 /min 16 /min 123 mm[Hg] 80 mm[Hg] India Calles CATA [facility] & [place] 3 10:51:52 Date Recorded Body height Body mass index (BMI) Body weight Body temperature Oxygen saturation Oxygen saturation in Arterial blood by Pulse oximetry Heart rate Systolic blood pressure Diastolic blood pressure Provider Name and Address Organization Details Last Updated DateTime 2 167.64 cm 50.8 kg/m2 746291. 6 g 98.2 [degF] 90 % 90 % 83 /min 134 mm[Hg] 80 mm[Hg] Laura Allen [facility] & [place] 2 15:16:39 Social History Question Answer Notes LastModified by Hotchalk[employer]at ion Details LastModified Time Tobacco Smoking Status Former Smoker Roxy Taveras [facility] & [place] 02/16/2022 16:45:54 Do You Have An Advance Directive? Yes Information not available 04/23/2022 When Did You Quit Smoking? 11-15yearssi ncelastcigar ette Information not available 04/23/2022 What Was The Date Of Your Most Recent Tobacco Screening? 04/23/2022 Information not available 04/23/2022 Has Tobacco Cessation Counseling Been Provided? No Information not available 04/23/2022 Sex: Unknown Functional Status Question Answer Note LastModified by Organizat ion Details LastModified Time Do you use any illicit or recreational drugs? No [email or web address] Information not available 02/17/2022 Do you or have you ever used any other forms of tobacco or nicotine? No [email or web address] Information not available 04/23/2022 What is your level of alcohol consumption? None Information not available 04/23/2022 Mental Status None recorded. Family History Relationship Description Onset Age of this Age Resolved Age Notes LastModified by Organization Details LastModified Time Mother Malignant tumor of breast [email or web address] Not available 04/23/2022 14:37:38 Father Alzheimer's disease [facility] Not available 04/23/2022 14:37:38 Brother [facility] pulmonary [email or web address] Not available 02/16/2022 16:45:33 Brother [email or web address] Not available 02/16/2022 16:45:43 Medical History Condition Response Obesity Y Arthritis Y Cancer Y Back Problems Y Thyroid Problems Y Hypothyroidism Y Acne Y High Cholesterol N Hypertension Y Obstructive Sleep Apnea Y Gynecological History Statement/Question Response Menses Monthly N Date of Last Pap Smear Date of Last Colonoscopy 08/25/2020 Date of LMP 07/21/1996 Obstetrics History GPAL:G 0 P 0 0 0 0 Immunizations Vaccine Type Date Status Note Provider Nam e and Address Organization Details Recorded Time Influenza, high-dose, quadrivalent, PF 02/11/2021 completed Not Available [facility] 3 18:09:06 COVID-19, mRNA, LNP-S, PF, 30 mcg/0.3 mL dose 06/26/2020 completed Not Available [facility] 3 18:09:06 COVID-19, mRNA, LNP-S, PF, 30 mcg/0.3 mL dose 07/22/2020 completed Not Available [facility] 3 18:09:06 COVID-19, mRNA, LNP-S, PF, 30 mcg/0.3 mL dose 02/16/2021 completed Not Available [facility] 3 18:09:06 COVID-19, mRNA, LNP-S, PF, 30 mcg/0.3 mL dose, katina-sucrose 08/26/2021 completed Not Available [facility] 023 18:09:06 Influenza, high-dose, quadrivalent, PF 02/11/2022 completed Not Available [facility] 3 18:09:06 COVID-19, mRNA, LNP-S, bivalent, PF, 30 mcg/0.3 mL dose 02/11/2022 completed Not Available [facility] 3 18:09:06 Past Encounters Encounter ID Performer Location Encounter Start Date Encounter Closed Date Diagnosis/Indication Diagnosis SNOMED-CT Code Diagnosis ICD10 Code Diagnosis Note [id number] Farhad Norman MD [address] [address] 02/17/2022 08:26:05 02/17/2022 10:22:03 Gastroesophageal reflux disease 027131219 K21.9 Hyperglycemia 34801340 R 73.9 Will obtain lab work today Hyperlipidemia 67617074 E78.5 awaiting lab Hypothyroidism 22821821 E03.9 patient is currently on levo thyroxine will obtain lab work. Multiple skin tags 94608 7009 L91.8 Skin tags removed. Patient tolerated procedure well. [id number] Olga Lidia Jeter APRN [address] [address] 04/23/2022 14:37:29 04/23/2022 15:44:02 Acute upper respiratory infection 39421996 J06.9 R05.1 Patient likely has an acute bacterial sinusitis. Will treat as below. No signs of preseptal or orbital cellulitis , meningismu s, or neurologic changes concerning for intracrani al process. Instructed family to monitor patient closely and call office for any of these symptoms. Supportive care reviewed: raising HOB, humidifier use, saline nasal spray, rest, encourage PO fluids and monitor hydration status, infection control measures. Recommende d acetaminop hen/ibupro fen PRN pain, fever; reviewed appropriat e doses. Follow-up as below. [id number] Jayro Ponce MD [address] [address] 07/29/2022 14:39:15 07/30/2022 15:52:22 Acute bronchitis 05406339 J20.9 See orders. Seek medical care if symptoms become severe. Dyspnea 523349453 R06.00 See orders Acute uppe r respiratory infection 30370142 J06.9 [id number] Farhad Norman MD [facility] [address] [address] 08/25/2022 09:36:16 08/25/2022 10:45:14 Hypertensive disorder 14137434 I10 labs drawn by lang MENDES OBTAIN LAB WORK TODAY. PATIENT TO CONTINUE WITH HER CURRENT REGIMEN. Adult heal th examination 228312087 Z00.00 Hyperlipidemia 07717727 E78.5 awaiting lab Osteoarthritis 889445451 M19.90 WILL START PATIENT HAS MOBIC PER REQUEST. I WILL START HER ON CELEBREX. Allergic rhinitis 499057 04 J30.9 I WILL START PATIENT ON ZYRTEC. [id number] Farhad Norman MD [address] [place] [address] 10/07/2022 10:37:34 10/07/2022 11:07:20 Disorder of rotator cuff 322515559 M75.82 in view of patient's pain will start her on a Medrol Dosepak. I will also refer her to orthopedic surgeon for further evaluation . Health Concerns Section Related Observation LastModified by Organization Detai ls LastModified Time None Recorded Concern Status LastModified by Organization Details LastModified Time None Recorded Advance Directives Directive Y: Payers Insurance Date Sequence Insurance Name Policy Number Policy Michelle Covered Member ID Michelle Member ID Guarantor Name 04/13/2019 1 [facility] (MEDICARE SUPPLEMENT) [id number] Tri Ricardo [id number] Tri Ricardo 04/13/2019 2 [facility] [id number] Tri Ricardo [id number] Tri Ricardo 12/10/2023 1 [facility] (MEDICARE REPLACEMENT/A DVANTAGE - PPO) [id number] Tri Ricardo [id number] Tri Ricardo Notes Date Note Type Note Provider Name and Address Organization Details Recorded Time 02/17/2022 text/html patient presents for routine follow-up. She denies any new issues. She does have several skin tags she wants removed from her left side of the neck Farhad Norman MD [address] [facility], [place], [address], [facility] & [place] 02/17/2022 15:06:50 04/23/2022 text/html Upper Respirator y SymptomsReported bypatient.Location:he ad; chest; throat; nasal; ears Quality:congested;hac ariana cough Severity:moderate Onset/Timing:date of onset: (4days) Context:no foreign travel; non-smoker;sick contact Associated Symptoms:no chest pain; no shortness of breath; no cyanosis; no change in number of pillows needed to sleep at night; no sweats; no fever; no morning cough; no vomiting; no diarrhea; no rash; no nausea; no conjunctivitis;yellow sputum;wheezing;fatig ue;sore throat;headache;chill s;malaise Olga Lidia Jeter APRN [address] [place] [address], [phone], [facility] & [place] 05/09/2022 15:08:58 07/29/2022 text/html 81-year-old fema le here with a new complaint. Patient has had cough congestion for a week. She has drainage from her nose going down the back of her throat with some voice changes. She denies any fever. She does describe some shortness of breath. Patient does have a history of recurrent bronchitis. She does have albuterol but states she is about out. She denies any fever. She does not know of any exposures. The drainage is green yellow when she is able to cough some.Patient denies throat pain headache. no chest painPatient does have fatigue. Jayro Ponce MD [address] [place] [address], [phone], [facility] & [place] 07/29/2022 15:42:05 08/25/2022 text/html PATIENT PRESENTS FOR ANNUAL MEDICARE PHYSICAL EXAMINATION. SHE DENIES ANY NEW ISSUES AT THIS TIME. SHE DOES STATE THAT HER ALLERGIC RHINITIS IS FLARING UP. SHE ALSO NEEDS SOMETHING ELSE FOR HER CHRONIC ARTHRITIS. SHE IS CURRENTLY ON MOBIC. SHE STATES THAT IT IS NO LONGER EFFECTIVE. Farhad Norman MD [address] [place] [address], [phone], [facility] & [place] 08/25/2022 10:55:05 10/07/2022 text/html patient presents today complaining of left shoulder pain. She denies any actual injury however wrote patient and abduction elicits pain. Symptoms have been going on for 10 days. Farhad Norman MD [address] [facility], [place], [address], [facility] & [place] 10/07/2022 11:12:26 OBGyn Episode No OBEpisode recorded.
== END 2024-10-02 23:59 | disposition home or self-care (01) ==
LOC: LAB.DROPOF 10-04 12:36
PROVIDERS: PCP Family Medicine; Visit Provider Family Medicine
DX: E03.9 Hypothyroidism, unspecified (principal)
CPT/HCPCS: 84443

== ENCOUNTER 2024-10-16 13:26 | Outpatient (CLI) | payer MEDICARE, SELFPAY ==
--- NOTE | 2024-10-16 13:31 | XR_ITS ---
FINAL REPORT CLINICAL HISTORY: possible cauda equina COMPARISON: None FINDINGS: LUMBAR SPINE: AP and 2 lateral views of the lumbar spine were obtained. There is no prior exam for comparison. There is no acute fracture or malalignment. Vertebral body height is preserved. There is vacuum phenomenon at the L2-3, L3-4, L4-5, and L5-S1 levels, with diffuse endplate hypertrophy. Moderate facet sclerosis is present in the lower lumbar spine. No acute paraspinal abnormality. IMPRESSION: Diffuse advanced degenerative change of the lower lumbar spine as described above. Reviewed, Interpreted and Dictated by Nixon Sheikh MD Transcribed by Luisa Gray Authenticated and [facility]
== END 2024-10-16 23:59 | disposition home or self-care (01) ==
LOC: RAD 13:27
PROVIDERS: PCP Family Medicine; Visit Provider Family Medicine
DX: M47.816 Spondylosis without myelopathy or radiculopathy, lumbar region (principal)
CPT/HCPCS: 72100

== ENCOUNTER 2024-10-30 14:14 | Outpatient (CLI) | payer MEDICARE, SELFPAY ==
--- NOTE | 2024-10-30 13:00 | MR_ITS ---
FINAL REPORT CLINICAL HISTORY: back pain; numb perineum; radicular pain BURNING SENSATION DOWN BILATERAL LEGS X 2-3 YEARS 5 FALLS WITHIN 2 YEARS FINDINGS: Multiplanar MR imaging of the lumbar spine was performed without contrast. On the sagittal T2-weighted images, there is abnormal decreased signal throughout the lumbar discs. There is moderate disc space narrowing from L1-2 through L5-S1. There is advanced disc space narrowing at L4-5. The vertebrae are of normal height. The vertebral alignment is normal. L1-2: Mild diffuse disc bulge with mild bilateral neuroforaminal narrowing. L2-3: Moderate diffuse disc bulge. Posterolateral disc protrusions with moderate spinal and bilateral neuroforaminal compromise. L3-4: Moderate diffuse disc bulge. Moderate to high-grade right and moderate left neuroforaminal narrowing. In addition, there is a right paracentral disc extrusion extending inferiorly with moderate compromise of the right lateral recess. L4-5: Moderate diffuse disc bulge. Right posterolateral disc protrusion with moderate to high-grade right and moderate left neuroforaminal narrowing. L5-S1: Moderate diffuse disc bulge with endplate hypertrophy. Moderate to high-grade bilateral neuroforaminal narrowing. IMPRESSION: Multilevel changes of degenerative disc disease, most evident from L2-3 through L5-S1 with the right paracentral disc extrusion at L3-4. Reviewed, Interpreted and Dictated by Nixon Sheikh MD Transcribed by Antonella Bowden Authenticated and [facility]
--- OUTSIDE RECORDS SUMMARY | 2024-10-30 14:16 | XMS_ITS | Data Portability ---
Author Organization [facility] [place] [facility] Address [address] [place] [address] Care Team Providers Care Government Services Professional Name Role Phone ARIK MARITZA Primary Care Provider [phone] Assessment No assessment recorded. Plan of Treatment Reminders Order Date Submit Date Provider Last Modified By Organization Details Last Modified Time Details Appointments None recorded. Lab None recorded. Referral None recorded. Procedures None recorded. Surgeries None recorded. Imaging None recorded. Medication Orders clindamycin 1 % lotion 2023 024 [email or web address] [facility], [place], [address] [place] [address], [address], 15:48:02 Patient TargetsNo targets recorded. Patient InstructionsNo instructions recorded. Reason for Referral None Reported. Medical Equipment None Reported. Allergies Allergen ID Allergen Name Allergen Category Reaction Reaction Severity Criticality Documentation Date Start Date Code Code System Note Provider Name and Address Organization Details Recorded Time 224346 Product containin g penicilli n (product) medicatio n hives Not available Not available 02/28/2024 00841 8001 SNOMED Kylah Shell [facility] 15:26:55 505494 quinidine Not available hair loss Not available Not available 02/28/2024 9068 RxNorm SOB Kylah Shell [facility] 15:27:54 Medications Name Sig Start Date Stop [...] SNOMED-CT Code Diagnosis ICD10 Code Diagnosis Note [id number] QM_[place]POR[place] [address] 08/26/2016 05:40:37 08/26/2016 05:40:37 [id number] SAL FLOWERS MD [address] [address] [place] [address] 02/28/2024 14:52:28 02/29/2024 16:17:36 Multiple benign melanocytic nevi [id number] D22.5 - Benign lesions seen on exam [...] changing or worrisome lesions Seborrheic keratosis 394 559109 L82.1 - Benign overgrowth s of skin - Hereditary Senile angioma 7063152 I 78.1 - Benign blood vessel growths - Hereditary Solar lentigo [id number] L 81.4 - Benign brown spots - Sun-induce d Rosacea [id number] L71.8 L70.0 Nature of the diagnosis discussed [...] Michelle Member ID Guarantor Name 02/29/2024 1 [facility] Tri Ricardo [id number] Tri Ricardo Notes Date Note Type Note Provider Name and Address Organization Details Recorded Time 02/28/2024 text/html Last seen 2021Hx of rosacea, rx doxy prn, rx metro 0.75% gel Waist up, no skin cancer hxI have some place on the chin and skin tags SAL FLOWERS MD [address] [place] [address], [phone], [facility] 02/28/2024 15:54:09 OBGyn Episode No OBEpisode recorded.
--- OUTSIDE RECORDS SUMMARY | 2024-10-30 14:16 | XMS_ITS | Data Portability ---
Author Organization [facility] [employer] AD[employer] Address [address] [place] [id number] Assessment No assessment recorded. Plan of Treatment Reminders Order Date Submit Date Provider Last Modified By Organization Details Last Modified Time Details Appointments None recorded. Lab CMP, serum or plasma 2022 023 [facility] (Laboratory), [address] [place], [address], 3 17:57:17 CBC w/ auto diff 2022 023 [facility] (Laboratory), [address] [place], [address], 3 17:06:40 TSH, serum or plasma 2022 023 [facility] (Laboratory), [address] [place], [address], 3 17:57:15 vitamin B12, serum 2022 023 [facility] (Laboratory), [address] [place], [address], 3 17:58:21 vitamin D, 25-hydroxy, total, serum 2022 023 [facility] (Laboratory), [address] [place], [address], 3 08:15:13 HbA1c (hemoglobin A1c), blood 2022 023 [facility] (Laboratory), [address] [place], [address], 3 17:35:58 lipid panel, serum 2022 023 [facility] (Laboratory), [address] [place], [address], 3 17:58:20 influenza virus A + B + SARS-CoV-2 (COVID19) Ag panel, rapid IA, upper respiratory specimen 2021 [facility] Not available 09:36:18 HbA1c (hemoglobin A1c), blood 2021 [facility] (Laboratory), [address] [place], [address], 2 12:39:57 lipid panel, serum 2021 022 [facility] (Laboratory), [address] [place], [address], 2 12:54:59 CBC w/ auto diff 2021 [facility] (Laboratory), [address] [place], [address], 2 12:20:03 CMP, serum or plasma 2021 022 [facility] (Laboratory), [address] [place], [address], 2 12:54:58 25-hydroxyv itamin D2 + 25-hydroxyv itamin D3, QN, serum or plasma 2021 022 [facility] (Laboratory), [address] [place], [address], 16:46:28 TSH + free T4, serum 2021 tpardini [facility] (Laboratory), [address] , [place], [address], 16:46:28 Referral orthopedic surgeon referral 2022 023 lang Meier MD, [address] [facility], [address], [place], [address], 3 08:12:59 Procedures None recorded. Surgeries None recorded. Imaging None recorded. Medication Orders Medrol (Jeet) 4 mg tablets in a dose pack 2022 023 [facility]/Pharmacy #[id number], [address] [place], [address], 3 11:12:01 Zyrtec 10 mg capsule 2022 023 [facility]/Pharmacy #[id number], [address] [facility] [place], [address], 3 10:37:05 Celebrex 100 mg capsule 2022 023 [facility], [address] [place] [address], [address], 3 10:37:01 Zithromax Z-Jeet 250 mg tablet 2022 023 [facility], [address] [place] [address], [address], 3 09:54:48 Medrol (Jeet) 4 mg tablets in a dose pack 2022 023 [facility], [address] [place] [address], [address], 3 09:54:57 albuterol sulfate HFA 90 mcg/actuati on aerosol inhaler 2022 023 [facility], [address] [place] [address], [address], 3 15:40:56 benzonatate 200 mg capsule 2021 [facility]/Pharmacy #3016, [address] [place], [address], 3 09:54:51 azithromyci n 250 mg tablet 2021 [facility] [address] [place], [address], 3 09:54:48 Medrol (Jeet) 4 mg tablets in a dose pack 2021 [facility] [address] [place], [address], 3 09:54:57 albuterol sulfate HFA 90 mcg/actuati on aerosol inhaler 2021 [id number] [address] [place], [address], 2 15:38:11 Patient TargetsNo targets recorded. Patient InstructionsNo instructions recorded. Reason for Referral Orthopedic Surgeon Referral for Disorder of rotator cuff Referring Physician: Farhad Norman, Family Medicine, Encounter Date: 10/07/2022 Results Created Date Observation Date Name Description Value Unit Range Abnormal Flag Note LastModifiedBy Organization Detail LastModifiedTime 02/18/2002/17/2022 CBC AUTO W DIFF WBC 4.2 10 4.5-11 .5 low Not Available [facility] (Lab Registration) [address] [place], [address], 02/17/2022 12:20:03 02/18/20 22 02/17/2022 CBC AUTO W DIFF RBC 4.51 10 4.25-5 .57 Not Available [facility] (Lab Registration) [address] [place], [address], 02/17/2022 12:20:03 02/18/20 22 02/17/2022 CBC AUTO W DIFF HGB 13.7 g/dL 12.0-1 5.7 Not Available [facility] (Lab Registration) [address] [place], [address], 02/17/2022 12:20:03 02/18/20 22 02/17/2022 CBC AUTO W DIFF HCT 40.7 % 36.0-4 7.0 Not Available [facility] (Lab Registration) [address] [place], [address], 02/17/2022 12:20:03 02/18/20 22 02/17/2022 CBC AUTO W DIFF MCV 90.2 fL 80-95 Not Available [facility] (Lab Registration) [address] [place], [address], 02/17/2022 12:20:03 02/18/20 22 02/17/2022 CBC AUTO W DIFF MCH 30.4 pg 27.0-3 4.0 Not Available [facility] (Lab Registration) [address] [place], [address], 02/17/2022 12:20:03 02/18/20 22 02/17/2022 CBC AUTO W DIFF MCHC 33.7 g/dL 32.0-3 6.0 Not Available [facility] (Lab Registration) [address] [place], [address], 02/17/2022 12:20:03 02/18/20 22 02/17/2022 CBC AUTO W DIFF platelet count 200 10 150-45 0 Not Available [facility] (Lab Registration) [address] [place], [address], 02/17/2022 12:20:03 02/18/20 22 02/17/2022 CBC AUTO W DIFF RDW 12.9 % 12.3-1 5.1 Not Available [facility] (Lab Registration) [address] [place], [address], 02/17/2022 12:20:03 02/18/20 22 02/17/2022 CBC AUTO W DIFF MPV 9.7 fL 7.4-10 .4 Not Available [facility] (Lab Registration) [address] [place], [address], 02/17/2022 12:20:03 02/18/20 22 02/17/2022 CBC AUTO W DIFF granulocyte% 41.8 % 40-75 Not Available [facility] (Lab Registration) [address] [place], [address], 02/17/2022 12:20:03 02/18/20 22 02/17/2022 CBC AUTO W DIFF lymphocyte% 39.6 % 15-57 Not Available [facility] (Lab Registration) [address] [place], [address], 02/17/2022 12:20:03 02/18/20 22 02/17/2022 CBC AUTO W DIFF monocyte% 13.7 % 4.0-12 .0 high Not Available [facility] (Lab Registration) [address] [place], [address], 02/17/2022 12:20:03 02/18/20 22 02/17/2022 CBC AUTO W DIFF eosinophil% 4.2 % 0.0-4. 0 high Not Available [facility] (Lab Registration) [address] [place], [address], 02/17/2022 12:20:03 02/18/20 22 02/17/2022 CBC AUTO W DIFF basophil% 0.7 % 0.0-1. 0 Not Available [facility] (Lab Registration) [address] [place], [address], 02/17/2022 12:20:03 02/18/20 22 02/17/2022 CBC AUTO W DIFF immature granulocytes % 0.0 % 0.0-0. 8 Not Available [facility] (Lab Registration) [address] [place], [address], 02/17/2022 12:20:03 02/18/20 22 02/17/2022 CBC AUTO W DIFF granulocyte# 1.77 10 Not Available [facility] (Lab Registration) [address] [place], [address], 02/17/2022 12:20:03 02/18/20 22 02/17/2022 CBC AUTO W DIFF lymphocyte# 1.68 10 Not Available [facility] (Lab Registration) [address] [place], [address], 02/17/2022 12:20:03 02/18/20 22 02/17/2022 CBC AUTO W DIFF monocyte# 0.58 10 Not Available [facility] (Lab Registration) [address] [place], [address], 02/17/2022 12:20:03 02/18/20 22 02/17/2022 CBC AUTO W DIFF eosinophil# 0.18 10 Not Available [facility] (Lab Registration) [address] [place], [address], 02/17/2022 12:20:03 02/18/20 22 02/17/2022 CBC AUTO W DIFF basophil# 0.03 10 Not Available [facility] (Lab Registration) [address] [place], [address], 02/17/2022 12:20:03 02/18/20 22 02/17/2022 CBC AUTO W DIFF immature granulocytes # 0.00 10 Not Available [facility] (Lab Registration) [address] [place], [address], 02/17/2022 12:20:03 02/18/20 22 02/17/2022 CBC AUTO W DIFF manual differential NO Not Available [facility] (Lab Registration) [address] [place], [address], 02/17/2022 12:20:03 02/18/20 22 02/17/2022 CBC AUTO W DIFF note Unles s other ramirez noted testi ng perfo rmed at: [facility] [address] [place] [address] [phone] Pete escobedo MD CLIA: [id number] Not Available [facility] (Lab Registration) [address] [place], [address], 02/17/2022 12:20:03 02/18/20 22 02/17/2022 HEMOG LOBIN A1C glycosylated hemoglobin A1C 6.1 % 4.5-6. 2 Not Available [facility] (Lab Registration) [address] [place], [address], 02/17/2022 12:39:57 02/18/20 22 02/17/2022 HEMOG LOBIN A1C estimated average glucose 128 mg/dL 82-131 Not Available [facility] (Lab Registration) [address] [place], [address], 02/17/2022 12:39:57 02/18/20 22 02/17/2022 HEMOG LOBIN A1C note Celia escobedo other ramirez noted testi ng perfo rmed at: [facility] [address] [place] [address] [phone] Pete escobedo MD CLIA: [id number] Not Available [facility] (Lab Registration) [address] [place], [address], 02/17/2022 12:39:57 02/18/20 22 02/17/2022 THYRO ID STIMU LATIN G HORMO NE thyroid stimulating hormone 1.58 mIU/m L 0.34-4 .80 Not Available [facility] (Lab Registration) [address] [place], [address], 02/17/2022 12:54:56 02/18/20 22 02/17/2022 THYRO ID STIMU LATIN G HORMO NE note Celia escobedo other ramirez noted testi ng perfo rmed at: [facility] [address] [place] [address] [phone] Pete escobedo MD CLIA: [id number] Not Available [facility] (Lab Registration) [address] [place], [address], 02/17/2022 12:54:56 02/18/20 22 02/17/2022 T4 FREE T4,free 1.09 NG/mL 0.76-1 .46 Effec tive today 013 new Refer ence Range . Not Available [facility] (Lab Registration) [address] [place], [address], 02/17/2022 12:54:57 02/18/20 22 02/17/2022 T4 FREE note Unles s other ramirez noted testi ng perfo rmed at: [facility] [address] [place] [address] [phone] Pete escobedo MD CLIA: [id number] Not Available [facility] (Lab Registration) [address] [place], [address], 02/17/2022 12:54:57 02/18/20 22 02/17/2022 COMP METAB OLIC PANEL sodium 142 mmol/ L 136-14 5 Not Available [facility] (Lab Registration) [address] [place], [address], 02/17/2022 12:54:58 02/18/20 22 02/17/2022 COMP METAB OLIC PANEL potassium 4.7 mmol/ L 3.5-5. 1 Not Available [facility] (Lab Registration) [address] [place], [address], 02/17/2022 12:54:58 02/18/20 22 02/17/2022 COMP METAB OLIC PANEL chloride 104 mmol/ L 98-107 Not Available [facility] (Lab Registration) [address] [place], [address], 02/17/2022 12:54:58 02/18/20 22 02/17/2022 COMP METAB OLIC PANEL carbon dioxide 33 mmol/ L 21-32 high Not Available [facility] (Lab Registration) [address] [place], [address], 02/17/2022 12:54:58 02/18/20 22 02/17/2022 COMP METAB OLIC PANEL anion gap 5.0 Not Available [facility] (Lab Registration) [address] [place], [address], 02/17/2022 12:54:58 02/18/20 22 02/17/2022 COMP METAB OLIC PANEL glucose 95 mg/dL 70-110 Not Available [facility] (Lab Registration) [address] [place], [address], 02/17/2022 12:54:58 02/18/20 22 02/17/2022 COMP METAB OLIC PANEL blood urea nitrogen 25 mg/dL 7-18 high Not Available [facility] (Lab Registration) [address] [place], [address], 02/17/2022 12:54:58 02/18/20 22 02/17/2022 COMP METAB OLIC PANEL creatinine 1.1 mg/dL 0.6-1. 0 high Not Available [facility] (Lab Registration) [address] [place], [address], 02/17/2022 12:54:58 02/18/20 22 02/17/2022 COMP METAB OLIC PANEL BUN/creatini ne ratio 22.7 ratio 9-21 high Not Available [facility] (Lab Registration) [address] [place], [address], 02/17/2022 12:54:58 02/18/20 22 02/17/2022 COMP METAB OLIC PANEL estimated glom filtration rate 51 mL/mi n >60- low Not Available [facility] (Lab Registration) [address] [place], [address], 02/17/2022 12:54:58 02/18/20 22 02/17/2022 COMP METAB OLIC PANEL total protein 7.0 g/dL 6.4-8. 2 Not Available [facility] (Lab Registration) [address] [place], [address], 02/17/2022 12:54:58 02/18/20 22 02/17/2022 COMP METAB OLIC PANEL albumin 4.1 g/dL 3.4-5. 0 Not Available [facility] (Lab Registration) [address] [place], [address], 02/17/2022 12:54:58 02/18/20 22 02/17/2022 COMP METAB OLIC PANEL calcium 9.9 mg/dL 8.5-10 .1 Not Available [facility] (Lab Registration) [address] [place], [address], 02/17/2022 12:54:58 02/18/20 22 02/17/2022 COMP METAB OLIC PANEL corrected calcium 9.8 mg/dL 8.5-10 .1 Not Available [facility] (Lab Registration) [address] [place], [address], 02/17/2022 12:54:58 02/18/20 22 02/17/2022 COMP METAB OLIC PANEL bilirubin total 0.4 mg/dL 0.4-1. 5 Not Available [facility] (Lab Registration) [address] [place], [address], 02/17/2022 12:54:58 02/18/20 22 02/17/2022 COMP METAB OLIC PANEL AST (SGOT) 38 U/L 15-37 high Not Available [facility] (Lab Registration) [address] [place], [address], 02/17/2022 12:54:58 02/18/20 22 02/17/2022 COMP METAB OLIC PANEL ALT (SGPT) 50 U/L 12-78 Not Available [facility] (Lab Registration) [address] [place], [address], 02/17/2022 12:54:58 02/18/20 22 02/17/2022 COMP METAB OLIC PANEL alk phosphatase 91 U/L 53-141 Not Available [facility] (Lab Registration) [address] [place], [address], 02/17/2022 12:54:58 02/18/20 22 02/17/2022 COMP METAB OLIC PANEL note Unles s other ramirez noted testi ng perfo rmed at: [facility] [address] [place] [address] [phone] Pete escobedo MD CLIA: [id number] Not Available [facility] (Lab Registration) [address] [place], [address], 02/17/2022 12:54:58 02/18/20 22 02/17/2022 LIPID PANEL triglyceride 262 mg/dL 20-200 high The Natio nal Juliet [employer] l [employer]ca t[employer] am (NCEP ) has set the follo wing guide lines for Fasti ng Trigl yceri pedro: AMARILIS L: <150 mg/dL BORDE RLINE HIGH: 150 - 199 mg/dL HIGH: 200 - 499 mg/dL VERY HIGH: > or =500 mg/dL Not Available [facility] (Lab Registration) [address] [place], [address], 02/17/2022 12:54:59 02/18/20 22 02/17/2022 LIPID PANEL cholesterol 236 mg/dL 0-200 high The Natio nal [employer] l [employer]ca t[employer]gr am (NCEP ) has set the follo wing guide lines for Fasti ng Juliet stero l: ROWENA ABLE: <200 mg/dL BORDE RLINE HIGH: 200 - 239 mg/dL HIGH: > or =240 mg/dL Not Available [facility] (Lab Registration) [address] [place], [address], 02/17/2022 12:54:59 02/18/20 22 02/17/2022 LIPID PANEL HDL cholesterol 39 mg/dL 60- low The Natio nal Juliet [employer] l [employer]ca tion Progr am ([facility] ) has set the follo wing guide lines for Fasti ng HDL Juliet stero l: LOW HDL: <40 mg/dL AMARILIS L: 40 - 60 mg/dL ROWENA ABLE: >60 mg/dL Not Available [facility] (Lab Registration) [address], [place], [address], 02/17/2022 12:54:59 02/18/20 22 02/17/2022 LIPID PANEL LDL calculated 145 mg/dL 100- The Natio nal [employer] l [employer]ca t[employer] Progr am ([facility] ) has set the follo wing guide lines for Fasti ng LDL Juliet stero l: OPTIM AL: < 100 mg/dL LOW RISK: 100 - 129 mg/dL BORDE RLINE HIGH: 130 - 159 mg/dL HIGH: 160 - 189 mg/dL VERY HIGH: > or = 190 mg/dL Not Available [facility] (Lab Registration) [address], [place], [address], 02/17/2022 12:54:59 02/18/20 22 02/17/2022 LIPID PANEL chol/HDL ratio 6 ratio -5 high Not Available [facility] (Lab Registration) [address], [place], [address], 02/17/2022 12:54:59 02/18/20 22 02/17/2022 LIPID PANEL note Unles s other ramirez noted testi ng perfo rmed at: [facility] [address] [place] [address] [phone] Pete escobedo MD CLIA: [id number] Not Available [facility] (Lab Registration) [address] [place], [address], 02/17/2022 12:54:59 02/18/20 22 02/17/2022 VITAM IN D3 25-OH note Unles s other ramirez noted testi ng perfo rmed at: [facility] [address] [place] [address] [phone] Pete escobedo MD CLIA: [id number] Not Available [facility] (Lab Registration) [address] [place], [address], 02/18/2022 06:14:40 02/18/20 22 02/18/2022 VITAM IN [...] um and D. Callie george [place]: [facility] . 2. Janeth ortez MF, Pacheco carney [place], Gary off-F errar i MCCLURE, et al. Evalu ation , treat ment, and preve ntion of vitam in D defic iency : an Endoc rine Socie ty clini [place] pract ice guide line. JCEM. 2010; 96(7) :1911 -30. Perfo rmed at: - [facility] n [address] [facility], [place] [id number] [facility] Direc tor: Presley sun PhD, Phone : [phone] SENT TO REFER ENCE LAB Not Available [facility] (Lab Registration) [address] [place], [address], 02/18/2022 06:14:40 04/26/20 22 04/26/2022 influ brenden virus A + B + SARS- CoV-2 (COVI D19) Ag panel , rapid IA, upper respi rator y speci men FLU A negati ve Not Available [address], [address], 04/23/2022 15:36:41 04/26/20 22 04/26/2022 influ brenden virus A + B + SARS- CoV-2 (COVI D19) Ag panel , rapid IA, upper respi rator y speci men FLU B negati ve Not Available [address], [address], 04/23/2022 15:36:41 04/26/20 22 04/26/2022 influ brenden virus A + B + SARS- CoV-2 (COVI D19) Ag panel , rapid IA, upper respi rator y speci men SARS COV + SARS OV 2 negati ve Not Available [address], [place], [address], 04/23/2022 15:36:41 08/26/19 23 08/25/2022 CBC AUTO W DIFF WBC 4.8 10 4.5-11 .5 Not Available [facility] (Lab Registration) [address], [place], [address], 08/25/2022 17:06:40 08/26/19 23 08/25/2022 CBC AUTO W DIFF RBC 4.56 10 4.25-5 .57 Not Available [facility] (Lab Registration) [address], [place], [address], 08/25/2022 17:06:40 08/26/19 23 08/25/2022 CBC AUTO W DIFF HGB 13.7 g/dL 12.0-1 5.7 Not Available [facility] (Lab Registration) [address], [place], [address], 08/25/2022 17:06:40 08/26/19 23 08/25/2022 CBC AUTO W DIFF HCT 41.2 % 36.0-4 7.0 Not Available [facility] (Lab Registration) [address], [place], [address], 08/25/2022 17:06:40 08/26/19 23 08/25/2022 CBC AUTO W DIFF MCV 90.4 fL 80-95 Not Available [facility] (Lab Registration) [address] [place], [address], 08/25/2022 17:06:40 08/26/19 23 08/25/2022 CBC AUTO W DIFF MCH 30.0 pg 27.0-3 4.0 Not Available [facility] (Lab Registration) [address] [place], [address], 08/25/2022 17:06:40 08/26/19 23 08/25/2022 CBC AUTO W DIFF MCHC 33.3 g/dL 32.0-3 6.0 Not Available [facility] (Lab Registration) [address] [place], [address], 08/25/2022 17:06:40 08/26/19 23 08/25/2022 CBC AUTO W DIFF platelet count 223 10 150-45 0 Not Available [facility] (Lab Registration) [address] [place], [address], 08/25/2022 17:06:40 08/26/19 23 08/25/2022 CBC AUTO W DIFF RDW 12.9 % 12.3-1 5.1 Not Available [facility] (Lab Registration) [address] [place], [address], 08/25/2022 17:06:40 08/26/19 23 08/25/2022 CBC AUTO W DIFF MPV 9.4 fL 7.4-10 .4 Not Available [facility] (Lab Registration) [address] [place], [address], 08/25/2022 17:06:40 08/26/19 23 08/25/2022 CBC AUTO W DIFF granulocyte% 48.6 % 40-75 Not Available [facility] (Lab Registration) [address] [place], [address], 08/25/2022 17:06:40 08/26/19 23 08/25/2022 CBC AUTO W DIFF lymphocyte% 34.0 % 15-57 Not Available [facility] (Lab Registration) [address] [place], [address], 08/25/2022 17:06:40 08/26/19 23 08/25/2022 CBC AUTO W DIFF monocyte% 12.8 % 4.0-12 .0 high Not Available [facility] (Lab Registration) [address] [place], [address], 08/25/2022 17:06:40 08/26/19 23 08/25/2022 CBC AUTO W DIFF eosinophil% 3.8 % 0.0-4. 0 Not Available [facility] (Lab Registration) [address] [place], [address], 08/25/2022 17:06:40 08/26/19 23 08/25/2022 CBC AUTO W DIFF basophil% 0.6 % 0.0-1. 0 Not Available [facility] (Lab Registration) [address] [place], [address], 08/25/2022 17:06:40 08/26/19 23 08/25/2022 CBC AUTO W DIFF immature granulocytes % 0.2 % 0.0-0. 8 Not Available [facility] (Lab Registration) [address] [place], [address], 08/25/2022 17:06:40 08/26/19 23 08/25/2022 CBC AUTO W DIFF granulocyte# 2.32 10 Not Available [facility] (Lab Registration) [address] [place], [address], 08/25/2022 17:06:40 08/26/19 23 08/25/2022 CBC AUTO W DIFF lymphocyte# 1.62 10 Not Available [facility] (Lab Registration) [address], [place], [address], 08/25/2022 17:06:40 08/26/19 23 08/25/2022 CBC AUTO W DIFF monocyte# 0.61 10 Not Available [facility] (Lab Registration) [address], [place], [address], 08/25/2022 17:06:40 08/26/19 23 08/25/2022 CBC AUTO W DIFF eosinophil# 0.18 10 Not Available [facility] (Lab Registration) [address] [place], [address], 08/25/2022 17:06:40 08/26/19 23 08/25/2022 CBC AUTO W DIFF basophil# 0.03 10 Not Available [facility] (Lab Registration) [address] [place], [address], 08/25/2022 17:06:40 08/26/19 23 08/25/2022 CBC AUTO W DIFF immature granulocytes # 0.01 10 Not Available [facility] (Lab Registration) [address], [place], [address], 08/25/2022 17:06:40 08/26/19 23 08/25/2022 CBC AUTO W DIFF manual differential NO Not Available [facility] (Lab Registration) [address] [place], [address], 08/25/2022 17:06:40 08/26/19 23 08/25/2022 CBC AUTO W DIFF note Unles s other ramirez noted testi ng perfo rmed at: [facility] [address] [place] [address] [phone] Pete escobedo MD CLIA: [id number] Not Available [facility] (Lab Registration) [address] [place], [address], 08/25/2022 17:06:40 08/26/19 23 08/25/2022 HEMOG LOBIN A1C glycosylated hemoglobin A1C 6.0 % 4.5-6. 2 Not Available [facility] (Lab Registration) [address] [place], [address], 08/25/2022 17:35:57 08/26/19 23 08/25/2022 HEMOG LOBIN A1C estimated average glucose 126 mg/dL 82-131 Not Available [facility] (Lab Registration) [address] [place], [address], 08/25/2022 17:35:57 08/26/19 23 08/25/2022 HEMOG LOBIN A1C note Unles s other ramirez noted testi ng perfo rmed at: [facility] [address] [place] [phone] Pete escobedo MD CLIA: [id number] Not Available [facility] (Lab Registration) [address] [place], [address], 08/25/2022 17:35:57 08/26/19 23 08/25/2022 THYRO ID STIMU LATIN G HORMO NE thyroid stimulating hormone 1.04 mIU/m L 0.34-4 .80 Not Available [facility] (Lab Registration) [address] [place], [address], 08/25/2022 17:57:14 08/26/19 23 08/25/2022 THYRO ID STIMU LATIN G HORMO NE note Unles s other armirez noted testi ng perfo rmed at: [facility] [address] [place] [address] [id number] Pete escobedo MD CLIA: [id number] Not Available [facility] (Lab Registration) [address] [place], [address], 08/25/2022 17:57:14 08/26/19 23 08/25/2022 COMP METAB OLIC PANEL sodium 141 mmol/ L 136-14 5 Not Available [facility] (Lab Registration) [address] [place], [address], 08/25/2022 17:57:16 08/26/19 23 08/25/2022 COMP METAB OLIC PANEL potassium 4.4 mmol/ L 3.5-5. 1 Not Available [facility] (Lab Registration) [address] [place], [address], 08/25/2022 17:57:16 08/26/19 23 08/25/2022 COMP METAB OLIC PANEL chloride 102 mmol/ L 98-107 Not Available [facility] (Lab Registration) [address] [place], [address], 08/25/2022 17:57:16 08/26/19 23 08/25/2022 COMP METAB OLIC PANEL carbon dioxide 30 mmol/ L 21-32 Not Available [facility] (Lab Registration) [address] [place], [address], 08/25/2022 17:57:16 08/26/19 23 08/25/2022 COMP METAB OLIC PANEL anion gap 9.0 Not Available [facility] (Lab Registration) [address] [place], [address], 08/25/2022 17:57:16 08/26/19 23 08/25/2022 COMP METAB OLIC PANEL glucose 105 mg/dL 70-110 Not Available [facility] (Lab Registration) [address] [place], [address], 08/25/2022 17:57:16 08/26/19 23 08/25/2022 COMP METAB OLIC PANEL blood urea nitrogen 25 mg/dL 7-18 high Not Available [facility] (Lab Registration) [address] [place], [address], 08/25/2022 17:57:16 08/26/19 23 08/25/2022 COMP METAB OLIC PANEL creatinine 1.2 mg/dL 0.6-1. 0 high Not Available [facility] (Lab Registration) [address] [place], [address], 08/25/2022 17:57:16 08/26/19 23 08/25/2022 COMP METAB OLIC PANEL BUN/creatini ne ratio 20.8 ratio 9-21 Not Available [facility] (Lab Registration) [address] [place], [address], 08/25/2022 17:57:16 08/26/19 23 08/25/2022 COMP METAB OLIC PANEL estimated glom filtration rate 46 mL/mi n >60- low Not Available [facility] (Lab Registration) [address] [place], [address], 08/25/2022 17:57:16 08/26/19 23 08/25/2022 COMP METAB OLIC PANEL total protein 7.3 g/dL 6.4-8. 2 Not Available [facility] (Lab Registration) [address] [place], [address], 08/25/2022 17:57:16 08/26/19 23 08/25/2022 COMP METAB OLIC PANEL albumin 4.1 g/dL 3.4-5. 0 Not Available [facility] (Lab Registration) [address] [place], [address], 08/25/2022 17:57:16 08/26/19 23 08/25/2022 COMP METAB OLIC PANEL calcium 10.4 mg/dL 8.5-10 .1 high Not Available [facility] (Lab Registration) [address] [place], [address], 08/25/2022 17:57:16 08/26/19 23 08/25/2022 COMP METAB OLIC PANEL corrected calcium 10.3 mg/dL 8.5-10 .1 high Not Available [facility] (Lab Registration) [address] [place], [address], 08/25/2022 17:57:16 08/26/19 23 08/25/2022 COMP METAB OLIC PANEL bilirubin total 0.5 mg/dL 0.4-1. 5 Not Available [facility] (Lab Registration) [address] [place], [address], 08/25/2022 17:57:16 08/26/19 23 08/25/2022 COMP METAB OLIC PANEL AST (SGOT) 36 U/L 15-37 Not Available [facility] (Lab Registration) [address] [place], [address], 08/25/2022 17:57:16 08/26/19 23 08/25/2022 COMP METAB OLIC PANEL ALT (SGPT) 53 U/L 12-78 Not Available [facility] (Lab Registration) [address], [place], [address], 08/25/2022 17:57:16 08/26/19 23 08/25/2022 COMP METAB OLIC PANEL alk phosphatase 79 U/L 53-141 Not Available [facility] (Lab Registration) [address], [place], [address], 08/25/2022 17:57:16 08/26/19 23 08/25/2022 COMP METAB OLIC PANEL note Unles s other ramirez noted testi ng perfo rmed at: [facility] [address] [place] [place] [address] [phone] Pete escobedo MD CLIA: [id number] Not Available [facility] (Lab Registration) [address] [place], [address], 08/25/2022 17:57:16 08/26/19 23 08/25/2022 LIPID PANEL triglyceride 317 mg/dL 20-200 high The [employer]io [employer] t[employer] am (NCEP ) has set the follo wing guide lines for Fasti ng Trigl yceri pedro: AMARILIS L: <150 mg/dL BORDE RLINE HIGH: 150 - 199 mg/dL HIGH: 200 - 499 mg/dL VERY HIGH: > or =500 mg/dL Not Available [facility] (Lab Registration) [address] [place], [address], 08/25/2022 17:58:19 08/26/19 23 08/25/2022 LIPID PANEL cholesterol 267 mg/dL 0-200 high The [employer]io [employer] t[employer] am (AZEP ) has set the follo wing guide lines for Fasti ng Juliet stero l: ROWENA ABLE: <200 mg/dL BORDE RLINE HIGH: 200 - 239 mg/dL HIGH: > or =240 mg/dL Not Available [facility] (Lab Registration) [address] [place], [address], 08/25/2022 17:58:19 08/26/19 23 08/25/2022 LIPID PANEL HDL cholesterol 40 mg/dL 60- low The [employer]io [employer] am (NCEP ) has set the follo wing guide lines for Fasti ng HDL Juliet stero l: LOW HDL: <40 mg/dL AMARILIS L: 40 - 60 mg/dL ROWENA ABLE: >60 mg/dL Not Available [facility] (Lab Registration) [address] [place], [address], 08/25/2022 17:58:19 08/26/19 23 08/25/2022 LIPID PANEL [...] > or = 190 mg/dL Not Available [facility] (Lab Registration) [address] [place], [address], 08/25/2022 17:58:19 08/26/19 23 08/25/2022 LIPID PANEL chol/HDL ratio 7 ratio -5 high Not Available [facility] (Lab Registration) [address] [place], [address], 08/25/2022 17:58:19 08/26/19 23 08/25/2022 LIPID PANEL note Moiraes s other ramirez noted testi ng perfo rmed at: [facility] [address] [place] [address] [phone] Pete escobedo MD CLIA: [id number] Not Available [facility] (Lab Registration) [address] [place], [address], 08/25/2022 17:58:19 08/26/19 23 08/25/2022 VITAM IN B12 vitamin B12 740 pg/mL 193-98 6 Not Available [facility] (Lab Registration) [address] [place], [address], 08/25/2022 17:58:21 08/26/19 23 08/25/2022 VITAM IN B12 note Celia s other ramirez noted testi ng perfo rmed at: [facility] [address] [place] [address] [phone] Pete escobedo MD CLIA: [id number] Not Available [facility] (Lab Registration) [address] [place], [address], 08/25/2022 17:58:21 08/26/19 23 08/25/2022 VITAM IN D TOTAL (D2+D 3) vitamin D25 (D2+D3) 29.9 NG/mL 30-100 low Not Available [facility] (Lab Registration) [address] [place], [address], 08/25/2022 17:58:23 08/26/19 23 08/25/2022 VITAM IN D TOTAL (D2+D 3) note Moiraes s other ramirez noted testi ng perfo rmed at: [facility] [address] [place] [address] [phone] Pete escobedo MD CLIA: [id number] Not Available [facility] (Lab Registration) [address], [place], [address], 08/25/2022 17:58:23 Result Notes None recorded. Problems Name Problem SNOMED Code Status Onset Date Resolution Date Notes Provider Name and Address Organization Details Recorded Time Hypertensive disorder 49386454 Active 2021 Not Available [facility] 3 18:09:05 Hypothyroidis m 25747397 Active 2021 Not Available [facility] 3 18:09:05 Hyperglycemia 50731353 Active 2021 Not Available [facility] 3 18:09:06 Hypercholeste rolemia 73495882 Active 2021 Not Available [facility] 3 18:09:05 History of malignant neoplasm of breast 693030450 Active 2021 Not Available [facility] 3 18:09:05 Obesity 088671378 Active 2021 Not Available [facility] 3 18:09:05 Sleep apnea 94081629 Active 2021 Not Available [facility] 3 18:09:06 Restless legs 63006614 Active 2021 Not Available [facility] 3 18:09:05 Gastroesophag eal reflux disease 991010353 Active 2021 Not Available [facility] 3 18:09:05 Hyperlipidemi a 19921116 Active 2021 Not Available [facility] 3 18:09:06 Abnormal vasomotor function 79607028 Active 2021 Not Available [facility] 3 18:09:06 Osteoarthriti s 291687152 Active 2022 Not Available [facility] 3 18:09:05 Problem Notes None recorded. Procedures Surgical History Date Name Laterality Status Provider Name and Address Organization Details Recorded Time 08/26/19 23 Medicare Annual Wellness Visit Health Risk Assessment completed India Callesi [place] [facility] [place] 08/25/2022 10:00:34 02/18/20 22 Skin Tag Removal completed Farhad Norman MD [address] [place], [address] [place] [facility] [place] 02/17/2022 10:17:05 08/26/19 21 Date of Last Colonoscopy completed Lauren Yuniel [place] [facility] [place] 08/19/2022 11:26:17 08/26/19 21 Colonoscopy completed Lauren Yuniel [place] [facility] [place] 08/19/2022 11:29:55 05/23/19 12 Breast Surgery completed Laura Short [place] [facility] [place] 04/23/2022 15:17:03 05/23/19 06 Joint Replacement completed India Callesi [place] [facility] [place] 02/17/2022 08:44:23 Carpal tunnel surgery completed Roxy [place] [facility] [place] 02/16/2022 16:46:11 replacement of bilateral knee joints completed Roxy [place] [facility] [place] 02/16/2022 16:46:24 laparoscopic adjustable gastric banding completed Roxy [place] [facility] [place] 02/16/2022 16:46:34 Gallbladder Surgery completed Roxy [place] [facility] [place] 02/16/2022 16:46:46 prophylactic bilateral mastectomy completed Roxy Fl[place]ord [place] [facility] [place] 02/16/2022 16:47:09 Appendectomy completed Roxy Darcy [place] [facility] [place] 02/16/2022 16:47:15 Appendectomy completed Laura Short [place] [facility] [place] 04/23/2022 15:17:03 Imaging Results None recorded. Procedure Notes None recorded. Medical Equipment None Reported. Allergies Allergen ID Allergen Name Allergen Category Reaction Reaction Severity Criticality Documentation Date Start Date Code Code System Note Provider Name and Address Organization Details Recorded Time 32108 quinine Not available hives Not available Not available 02/16/2022 9071 RxNorm CATA Brennan [facility] & [place] 2 16:42:33 25237 Product containin g penicilli n (product) medicatio n anaphylax is Not available Not available 02/16/2022 11485 8001 SNOMED CATA Sewell [facility] & [place] 2 08:44:12 99393 Famvir medicatio n anaphylax is Not available Not available 02/16/2022 70407 3 RxNorm CATA Sewell [facility] & [place] 2 08:44:12 80600 penicilli n G Not available hives moderate Not available 02/17/2022 7980 RxNorm CATA Sewell [facility] & [place] 2 08:44:12 04059 anastrozo le medicatio n arthralgi a (joint pain) severe Not available 08/19/20222015 51929 RxNorm [facility] Not Available [facility] 3 18:09:05 Medications Name Sig Start Date [...] Updated DateTime 3 167.64 cm 51.6 kg/m2 274884. 4 g 97.5 [degF] 96 % 96 % 66 /min 16 /min 106 mm[Hg] 66 mm[Hg] [facility] [place] [facility] [place] 3 09:54:25 Date Recorded Body height Body mass index (BMI) Body weight Body temperature Oxygen saturation Oxygen saturation in Arterial blood by Pulse oximetry Heart rate Respiratory rate Systolic blood pressure Diastolic blood pressure Provider Name and Address Organization Details Last Updated DateTime 3 167.64 cm 50.5 kg/m2 147006. 69 g 97.9 [degF] 95 % 95 % 85 /min 16 /min 123 mm[Hg] 80 mm[Hg] India IVY [facility] & [place] 3 10:51:52 Date Recorded Body height Body mass index (BMI) Body weight Body temperature Oxygen saturation Oxygen saturation in Arterial blood by Pulse oximetry Heart rate Respiratory rate Systolic blood pressure Diastolic blood pressure Provider Name and Address Organization Details Last Updated DateTime 2 167.64 cm 50.6 kg/m2 493620. 13 g 97.3 [degF] 98 % 98 % 60 /min 18 /min 115 mm[Hg] 65 mm[Hg] India Calles [facility] & [place] 2 08:43:26 Date Recorded Body height Body mass index (BMI) Body weight Body temperature Oxygen saturation Oxygen saturation in Arterial blood by Pulse oximetry Heart rate Systolic blood pressure Diastolic blood pressure Provider Name and Address Organization Details Last Updated DateTime 2 167.64 cm 50.8 kg/m2 671493. 6 g 98.2 [degF] 90 % 90 % 83 /min 134 mm[Hg] 80 mm[Hg] Laura Allen [facility] & [place] 2 15:16:39 Social History Question Answer Notes LastModified by [employer] ion Details LastModified Time Tobacco Smoking Status Former Smoker Roxy Taveras [facility] & [place] 02/16/2022 16:45:54 Do You Have An Advance [...] LastModified Time Mother Malignant [email or web address] Not available 04/23/2022 14:37:38 Father Alzheimer's disease [email or web address] Not available 04/23/2022 14:37:38 Brother Chronic obstructive pulmonary [email or web address] Not available 02/16/2022 16:45:33 Brother [email or web address] Not available 02/16/2022 16:45:43 Medical History Condition Response Obesity Y Arthritis Y High Cholesterol N Cancer Y Back Problems Y Thyroid Problems Y Hypertension Y Obstructive Sleep Apnea Y Hypothyroidism Y Acne Y Gynecological History Statement/Question Response Menses Monthly N Date of Last Pap Smear Date of Last Colonoscopy 08/25/2020 Date of LMP 07/21/1996 Obstetrics History GPAL:G 0 P 0 0 0 0 Immunizations Vaccine Type Date Status Note Provider Nam e and Address Organization Details Recorded Time Influenza, high-dose, quadrivalent, PF 02/11/2021 completed Not Available [facility] 3 18:09:06 COVID-19, mRNA, LNP-S, PF, 30 mcg/0.3 mL dose 06/26/2020 completed Not Available [facility] 3 18:09:06 COVID-19, mRNA, LNP-S, PF, 30 mcg/0.3 mL dose 07/22/2020 completed Not Available [facility] 3 18:09:06 COVID-19, mRNA, LNP-S, PF, 30 mcg/0.3 mL dose 02/16/2021 completed Not Available [facility] 3 18:09:06 COVID-19, mRNA, LNP-S, PF, 30 mcg/0.3 mL dose, katina-sucrose 08/26/2021 completed Not Available [facility] 023 18:09:06 Influenza, high-dose, quadrivalent, PF 02/11/2022 completed Not Available [facility] 3 18:09:06 COVID-19, mRNA, LNP-S, bivalent, PF, 30 mcg/0.3 mL dose 02/11/2022 completed Not Available [facility] 3 18:09:06 Past Encounters Encounter ID Performer Location Encounter Start Date Encounter Closed Date Diagnosis/Indication Diagnosis SNOMED-CT Code Diagnosis ICD10 Code Diagnosis Note [id number] Farhad Norman MD [address] [address] 02/17/2022 08:26:05 02/17/2022 10:22:03 Gastroesophageal reflux disease 853057378 K21.9 Hyperglycemia 51174298 R 73.9 Will obtain lab work today Hyperlipidemia 94045006 E78.5 awaiting lab Hypothyroidism 41949221 E03.9 patient is currently on levo thyroxine will obtain lab work. Multiple skin tags 97004 7009 L91.8 Skin tags removed. Patient tolerated procedure well. [id number] Olga Lidia Jeter APRN [address] [address] 04/23/2022 14:37:29 04/23/2022 15:44:02 Acute upper respiratory infection 56676911 J06.9 R05.1 Patient likely has an acute [...] reviewed appropriat e doses. Follow-up as below. [id number] Jayro Ponce MD [address] [address] 07/29/2022 14:39:15 07/30/2022 15:52:22 Acute bronchitis 04699206 J20.9 See orders. Seek medical care if symptoms become severe. Dyspnea 256842666 R06.00 See orders Acute uppe r respiratory infection 14996535 J06.9 [id number] Farhad Norman MD [email or web address] [address] [address] 08/25/2022 09:36:16 08/25/2022 10:45:14 Hypertensive disorder 98806972 I10 labs drawn by lang MENDES OBTAIN LAB WORK TODAY. PATIENT TO CONTINUE WITH HER CURRENT REGIMEN. Adult heal th examination 083122455 Z00.00 Hyperlipidemia 35030380 E78.5 awaiting lab Osteoarthritis 189815242 M19.90 WILL START PATIENT HAS MOBIC PER REQUEST. I WILL START HER ON CELEBREX. Allergic rhinitis 619341 04 J30.9 I WILL START PATIENT ON ZYRTEC. [id number] Farhad Norman MD [address] [place] [address] 10/07/2022 10:37:34 10/07/2022 11:07:20 Disorder of rotator cuff 184295696 M75.82 in view of patient's pain will [...] Michelle Member ID Guarantor Name 04/13/2019 1 [facility] (MEDICARE SUPPLEMENT) [id number] Tri Ricardo [id number] Tri Ricardo 04/13/2019 2 [facility] [id number] Tri Ricardo [id number] Tri Ricardo 12/10/2023 1 [facility] (MEDICARE REPLACEMENT/A DVANTAGE - PPO) [id number] Tri Ricardo [id number] Tri Ricardo Notes Date Note Type Note Provider Name and Address Organization Details Recorded Time 02/17/2022 text/html patient presents for routine follow-up. She denies any new issues. She does have several skin tags she wants removed from her left side of the neck Farhad Norman MD [address], [place], [address], [facility] & [place] 02/17/2022 15:06:50 04/23/2022 text/html Upper Respirator y [...] ue;sore throat;headache;chill s;malaise Olga Lidia Jeter APRN [address] [place] [address], [phone], [facility] & [place] 05/09/2022 15:08:58 07/29/2022 text/html 81-year-old fema le [...] painPatient does have fatigue. Jayro Ponce MD [address] [place] [address], [phone], [facility] & [place] 07/29/2022 15:42:05 08/25/2022 text/html PATIENT PRESENTS FOR ANNUAL MEDICARE PHYSICAL EXAMINATION. SHE DENIES ANY NEW ISSUES AT THIS TIME. SHE DOES STATE THAT HER ALLERGIC RHINITIS IS FLARING UP. SHE ALSO NEEDS SOMETHING ELSE FOR HER CHRONIC ARTHRITIS. SHE IS CURRENTLY ON MOBIC. SHE STATES THAT IT IS NO LONGER EFFECTIVE. Farhad Norman MD [address] [place] [address], [phone], [facility] & [place] 08/25/2022 10:55:05 10/07/2022 text/html patient presents today complaining of left shoulder pain. She denies any actual injury however wrote patient and abduction elicits pain. Symptoms have been going on for 10 days. Farhad Norman MD [address], [place], [address], [facility] & [place] 10/07/2022 11:12:26 OBGyn Episode No OBEpisode recorded.
== END 2024-10-30 23:59 | disposition home or self-care (01) ==
LOC: RAD 14:14
PROVIDERS: PCP Family Medicine; Visit Provider Family Medicine
DX: M51.360 Other intervertebral disc degeneration, lumbar region with discogenic back pain only (principal); M48.061 Spinal stenosis, lumbar region without neurogenic claudication; M51.27 Other intervertebral disc displacement, lumbosacral region
CPT/HCPCS: 72148

== ENCOUNTER 2024-11-19 10:46 | Outpatient (CLI) | payer MEDICARE, SELFPAY ==
[2024-11-19 21:13] LABS: Thyroid Stimulating Hormone 1.26 uIU/mL (0.465-4.68)
--- OUTSIDE RECORDS SUMMARY | 2024-11-21 10:52 | XMS_ITS | Data Portability ---
Author Organization [employer] AD[employer] Address [address] [place] [id number] Assessment No assessment recorded. Plan of Treatment Reminders Order Date Submit Date Provider Last Modified By Organization Details Last Modified Time Details Appointments None recorded. Lab CMP, serum or plasma 2022 023 [facility] (Laboratory), [address] [place], [address], 3 17:57:17 CBC w/ auto diff 2022 023 [facility] (Laboratory), [address] [place], [address], 3 17:06:40 TSH, serum or plasma 2022 023 [facility] (Laboratory), [address] [place], [address], 3 17:57:15 vitamin B12, serum 2022 023 [facility] (Laboratory), [address] [place], [address], 3 17:58:21 vitamin D, 25-hydroxy, total, serum 2022 023 [facility] (Laboratory), [address] [place], [address], 3 08:15:13 HbA1c (hemoglobin A1c), blood 2022 023 [facility] (Laboratory), [address] [place], [address], 3 17:35:58 lipid panel, serum 2022 023 [facility] (Laboratory), [address] [place], [address], 3 17:58:20 influenza virus A + B + SARS-CoV-2 (COVID19) Ag panel, rapid IA, upper respiratory specimen 2021 [facility] Not available 09:36:18 HbA1c (hemoglobin A1c), blood 2021 [facility] (Laboratory), [address] [place], [address], 2 12:39:57 lipid panel, serum 2021 022 [facility] (Laboratory), [address] [place], [address], 2 12:54:59 CBC w/ auto diff 2021 022 [facility] (Laboratory), [address] [place], [address], 2 12:20:03 CMP, serum or plasma 2021 022 [facility] (Laboratory), [address] [place], [address], 2 12:54:58 25-hydroxyv itamin D2 + 25-hydroxyv itamin D3, QN, serum or plasma 2021 [facility] (Laboratory), [address] [place], [address], 16:46:28 TSH + free T4, serum [facility] [address] [place], [address], 16:46:28 Referral orthopedic surgeon referral 2022 023 lang Meier MD, [address] [facility], [address], [place], [address], 3 08:12:59 Procedures None recorded. Surgeries None recorded. Imaging None recorded. Medication Orders Medrol (Jeet) 4 mg tablets in a dose pack 2022 023 [facility]/Pharmacy #[id number], [address] [place], [address], 3 11:12:01 Zyrtec 10 mg capsule 2022 023 [facility]/Pharmacy #[id number], [address] [place], [address], 3 10:37:05 Celebrex 100 mg capsule 2022 023 [facility], [address] [place] [address], [address], 3 10:37:01 Zithromax Z-Jeet 250 mg tablet 2022 023 [facility], [address] [place] [address], [address], 3 09:54:48 Medrol (Jeet) 4 mg tablets in a dose pack 2022 023 [facility], [address] [place] [address], [address], 3 09:54:57 albuterol sulfate HFA 90 mcg/actuati on aerosol inhaler 2022 023 [facility], [address] [place] [address], [address], 3 15:40:56 benzonatate 200 mg capsule 2021 [facility] [address] [place], [address], 3 09:54:51 azithromyci n 250 mg tablet 2021 [facility] [address] [place], [address], 3 09:54:48 Medrol (Jeet) 4 mg tablets in a dose pack 2021 [facility] [address] [place], [address], 3 09:54:57 albuterol sulfate HFA 90 mcg/actuati on aerosol inhaler 2021 [facility] [address] [place], [address], 2 15:38:11 Patient TargetsNo targets recorded. Patient InstructionsNo instructions recorded. Reason for Referral Orthopedic Surgeon Referral for Disorder of rotator cuff Referring Physician: Farhad Norman, Family Medicine, Encounter Date: 10/07/2022 Results Created Date Observation Date Name Description Value Unit Range Abnormal Flag Note LastModifiedBy Organization Detail LastModifiedTime 02/18/20 22 02/17/2022 CBC AUTO W DIFF WBC 4.2 10 4.5-11 .5 low Not Available [facility] (Lab Registration) [address] [place], [address], 02/17/2022 12:20:03 02/18/20 22 02/17/2022 CBC AUTO W DIFF RBC 4.51 10 4.25-5 .57 Not Available [facility] (Lab Registration) [address] [place], [address], 02/17/2022 12:20:03 02/18/20 22 02/17/2022 CBC AUTO W DIFF HGB 13.7 g/dL 12.0-1 5.7 Not Available [facility] (Lab Registration) [address] [place], [address], 02/17/2022 12:20:03 02/18/20 22 02/17/2022 CBC AUTO W DIFF HCT 40.7 % 36.0-4 7.0 Not Available [facility] (Lab Registration) [address] [place], [address], 02/17/2022 12:20:03 02/18/20 22 02/17/2022 CBC AUTO W DIFF MCV 90.2 fL 80-95 Not Available [facility] (Lab Registration) [address] [place], [address], 02/17/2022 12:20:03 02/18/20 22 02/17/2022 CBC AUTO W DIFF MCH 30.4 pg 27.0-3 4.0 Not Available [facility] (Lab Registration) [address] [place], [address], 02/17/2022 12:20:03 02/18/20 22 02/17/2022 CBC AUTO W DIFF MCHC 33.7 g/dL 32.0-3 6.0 Not Available [facility] (Lab Registration) [address] [place], [address], 02/17/2022 12:20:03 02/18/20 22 02/17/2022 CBC AUTO W DIFF platelet count 200 10 150-45 0 Not Available [facility] (Lab Registration) [address] [place], [address], 02/17/2022 12:20:03 02/18/20 22 02/17/2022 CBC AUTO W DIFF RDW 12.9 % 12.3-1 5.1 Not Available [facility] (Lab Registration) [address] [place], [address], 02/17/2022 12:20:03 02/18/20 22 02/17/2022 CBC AUTO W DIFF MPV 9.7 fL 7.4-10 .4 Not Available [facility] (Lab Registration) [address] [place], [address], 02/17/2022 12:20:03 02/18/20 22 02/17/2022 CBC AUTO W DIFF granulocyte% 41.8 % 40-75 Not Available [facility] (Lab Registration) [address] [place], [address], 02/17/2022 12:20:03 02/18/20 22 02/17/2022 CBC AUTO W DIFF lymphocyte% 39.6 % 15-57 Not Available [facility] (Lab Registration) [address] [place], [address], 02/17/2022 12:20:03 02/18/20 22 02/17/2022 CBC AUTO W DIFF monocyte% 13.7 % 4.0-12 .0 high Not Available [facility] (Lab Registration) [address] [place], [address], 02/17/2022 12:20:03 02/18/20 22 02/17/2022 CBC AUTO W DIFF eosinophil% 4.2 % 0.0-4. 0 high Not Available [facility] (Lab Registration) [address] [place], [address], 02/17/2022 12:20:03 02/18/20 22 02/17/2022 CBC AUTO W DIFF basophil% 0.7 % 0.0-1. 0 Not Available [facility] (Lab Registration) [address] [place], [address], 02/17/2022 12:20:03 02/18/20 22 02/17/2022 CBC AUTO W DIFF immature granulocytes % 0.0 % 0.0-0. 8 Not Available [facility] (Lab Registration) [address] [place], [address], 02/17/2022 12:20:03 02/18/20 22 02/17/2022 CBC AUTO W DIFF granulocyte# 1.77 10 Not Available [facility] (Lab Registration) [address] [place], [address], 02/17/2022 12:20:03 02/18/20 22 02/17/2022 CBC AUTO W DIFF lymphocyte# 1.68 10 Not Available [facility] (Lab Registration) [address] [place], [address], 02/17/2022 12:20:03 02/18/20 22 02/17/2022 CBC AUTO W DIFF monocyte# 0.58 10 Not Available [facility] (Lab Registration) [address] [place], [address], 02/17/2022 12:20:03 02/18/20 22 02/17/2022 CBC AUTO W DIFF eosinophil# 0.18 10 Not Available [facility] (Lab Registration) [address] [place], [address], 02/17/2022 12:20:03 02/18/20 22 02/17/2022 CBC AUTO W DIFF basophil# 0.03 10 Not Available [facility] (Lab Registration) [address] [place], [address], 02/17/2022 12:20:03 02/18/20 22 02/17/2022 CBC AUTO W DIFF immature granulocytes # 0.00 10 Not Available [facility] (Lab Registration) [address] [place], [address], 02/17/2022 12:20:03 02/18/20 22 02/17/2022 CBC AUTO W DIFF manual differential NO Not Available [facility] (Lab Registration) [address] [place], [address], 02/17/2022 12:20:03 02/18/20 22 02/17/2022 CBC AUTO W DIFF note Unles s other ramirez noted testi ng perfo rmed at: [facility] [address] [place] [phone] Pete escobedo MD CLIA: [id number] Not Available [facility] (Lab Registration) [address] [place], [address], 02/17/2022 12:20:03 02/18/20 22 02/17/2022 HEMOG LOBIN A1C glycosylated hemoglobin A1C 6.1 % 4.5-6. 2 Not Available [facility] (Lab Registration) [address] [place], [address], 02/17/2022 12:39:57 02/18/20 22 02/17/2022 HEMOG LOBIN A1C estimated average glucose 128 mg/dL 82-131 Not Available [facility] (Lab Registration) [address] [place], [address], 02/17/2022 12:39:57 02/18/20 22 02/17/2022 HEMOG LOBIN A1C note Celia redding ramirez noted testi ng perfo rmed at: [facility] [address] [place] [address] [phone] Pete escobedo MD CLIA: [id number] Not Available [facility] (Lab Registration) [address] [place], [address], 02/17/2022 12:39:57 02/18/20 22 02/17/2022 THYRO ID STIMU LATIN G HORMO NE thyroid stimulating hormone 1.58 mIU/m L 0.34-4 .80 Not Available [facility] (Lab Registration) [address] [place], [address], 02/17/2022 12:54:56 02/18/20 22 02/17/2022 THYRO ID STIMU LATIN G HORMO NE note Celia redding ramirez noted testi ng perfo rmed at: [facility] [address] [place] [address] [phone] Pete escobedo MD CLIA: [id number] Not Available [facility] (Lab Registration) [address] [place], [address], 02/17/2022 12:54:56 02/18/20 22 02/17/2022 T4 FREE T4,free 1.09 NG/mL 0.76-1 .46 Effec tive today 013 new Refer ence Range . Not Available [facility] (Lab Registration) [address] [place], [address], 02/17/2022 12:54:57 02/18/20 22 02/17/2022 T4 FREE note Unles s other ramirez noted testi ng perfo [facility]med at: [facility] [address] [place] [address] [phone] Pete escobedo MD CLIA: [id number] Not Available [facility] (Lab Registration) [address] [place], [address], 02/17/2022 12:54:57 02/18/20 22 02/17/2022 COMP METAB OLIC PANEL sodium 142 mmol/ L 136-14 5 Not Available [facility] (Lab Registration) [address] [place], [address], 02/17/2022 12:54:58 02/18/20 22 02/17/2022 COMP METAB OLIC PANEL potassium 4.7 mmol/ L 3.5-5. 1 Not Available [facility] (Lab Registration) [address] [place], [address], 02/17/2022 12:54:58 02/18/20 22 02/17/2022 COMP METAB OLIC PANEL chloride 104 mmol/ L 98-107 Not Available [facility] (Lab Registration) [address] [place], [address], 02/17/2022 12:54:58 02/18/20 22 02/17/2022 COMP METAB OLIC PANEL carbon dioxide 33 mmol/ L 21-32 high Not Available [facility] (Lab Registration) [address] [place], [address], 02/17/2022 12:54:58 02/18/20 22 02/17/2022 COMP METAB OLIC PANEL anion gap 5.0 Not Available [facility] (Lab Registration) [address] [place], [address], 02/17/2022 12:54:58 02/18/20 22 02/17/2022 COMP METAB OLIC PANEL glucose 95 mg/dL 70-110 Not Available [facility] (Lab Registration) [address] [place], [address], 02/17/2022 12:54:58 02/18/20 22 02/17/2022 COMP METAB OLIC PANEL blood urea nitrogen 25 mg/dL 7-18 high Not Available [facility] (Lab Registration) [address] [place], [address], 02/17/2022 12:54:58 02/18/20 22 02/17/2022 COMP METAB OLIC PANEL creatinine 1.1 mg/dL 0.6-1. 0 high Not Available [facility] (Lab Registration) [address] [place], [address], 02/17/2022 12:54:58 02/18/20 22 02/17/2022 COMP METAB OLIC PANEL BUN/creatini ne ratio 22.7 ratio 9-21 high Not Available [facility] (Lab Registration) [address] [place], [address], 02/17/2022 12:54:58 02/18/20 22 02/17/2022 COMP METAB OLIC PANEL estimated glom filtration rate 51 mL/mi n >60- low Not Available [facility] (Lab Registration) [address] [place], [address], 02/17/2022 12:54:58 02/18/20 22 02/17/2022 COMP METAB OLIC PANEL total protein 7.0 g/dL 6.4-8. 2 Not Available [facility] (Lab Registration) [address] [place], [address], 02/17/2022 12:54:58 02/18/20 22 02/17/2022 COMP METAB OLIC PANEL albumin 4.1 g/dL 3.4-5. 0 Not Available [facility] (Lab Registration) [address] [place], [address], 02/17/2022 12:54:58 02/18/20 22 02/17/2022 COMP METAB OLIC PANEL calcium 9.9 mg/dL 8.5-10 .1 Not Available [facility] (Lab Registration) [address] [place], [address], 02/17/2022 12:54:58 02/18/20 22 02/17/2022 COMP METAB OLIC PANEL corrected calcium 9.8 mg/dL 8.5-10 .1 Not Available [facility] (Lab Registration) [address] [place], [address], 02/17/2022 12:54:58 02/18/20 22 02/17/2022 COMP METAB OLIC PANEL bilirubin total 0.4 mg/dL 0.4-1. 5 Not Available [facility] (Lab Registration) [address] [place], [address], 02/17/2022 12:54:58 02/18/20 22 02/17/2022 COMP METAB OLIC PANEL AST (SGOT) 38 U/L 15-37 high Not Available [facility] (Lab Registration) [address] [place], [address], 02/17/2022 12:54:58 02/18/20 22 02/17/2022 COMP METAB OLIC PANEL ALT (SGPT) 50 U/L 12-78 Not Available [facility] (Lab Registration) [address], [place], [address], 02/17/2022 12:54:58 02/18/20 22 02/17/2022 COMP METAB OLIC PANEL alk phosphatase 91 U/L 53-141 Not Available [facility] (Lab Registration) [address] [place], [address], 02/17/2022 12:54:58 02/18/20 22 02/17/2022 COMP METAB OLIC PANEL note Unles s other ramirez noted testi ng perfo rmed at: [facility] [address] [place] [address] [phone] Pete escobedo MD CLIA: [id number] Not Available [facility] (Lab Registration) [address] [place], [address], 02/17/2022 12:54:58 02/18/20 22 02/17/2022 LIPID PANEL triglyceride 262 mg/dL 20-200 high The Natio nal Juliet stero l Educa tion Progr am (NCEP ) has set the follo wing guide lines for Fasti ng Trigl yceri pedro: AMARILIS L: <150 mg/dL BORDE RLINE HIGH: 150 - 199 mg/dL HIGH: 200 - 499 mg/dL VERY HIGH: > or =500 mg/dL Not Available [facility] (Lab Registration) [address] [place], [address], 02/17/2022 12:54:59 02/18/20 22 02/17/2022 LIPID PANEL cholesterol 236 mg/dL 0-200 high The Natio nal Juliet stero l [employer]ca tion Progr am (NCEP ) has set the follo wing guide lines for Fasti ng Juliet stero l: ROWENA ABLE: <200 mg/dL BORDE RLINE HIGH: 200 - 239 mg/dL HIGH: > or =240 mg/dL Not Available [facility] (Lab Registration) [address] [place], [address], 02/17/2022 12:54:59 02/18/20 22 02/17/2022 LIPID PANEL HDL cholesterol 39 mg/dL 60- low The Natio nal Juliet stero l Educa tion Progr am ([facility] ) has set the follo wing guide lines for Fasti ng HDL Juliet stero l: LOW HDL: <40 mg/dL AMARILIS L: 40 - 60 mg/dL ROWENA ABLE: >60 mg/dL Not Available [facility] (Lab Registration) [address], [place], [address], 02/17/2022 12:54:59 02/18/20 22 02/17/2022 LIPID PANEL LDL calculated 145 mg/dL 100- The Natio nal Juliet stero l [employer]ca tion Progr am ([facility] ) has set the follo wing guide lines for Fasti ng LDL Juliet stero l: OPTIM AL: < 100 mg/dL LOW RISK: 100 - 129 mg/dL BORDE RLINE HIGH: 130 - 159 mg/dL HIGH: 160 - 189 mg/dL VERY HIGH: > or = 190 mg/dL Not Available [facility] (Lab Registration) [address], [place], [address], 02/17/2022 12:54:59 02/18/20 22 02/17/2022 LIPID PANEL chol/HDL ratio 6 ratio -5 high Not Available [facility] (Lab Registration) [address], [place], [address], 02/17/2022 12:54:59 02/18/20 22 02/17/2022 LIPID PANEL note Unles s other ramirez noted testi ng perfo rmed at: [facility] [address] [place] [address] [phone] Pete escobedo MD CLIA: [id number] Not Available [facility] (Lab Registration) [address] [place], [address], 02/17/2022 12:54:59 09/28/02/17/2022 VITAM IN D3 25-OH note Unles s other ramirez noted testi ng perfo rmed at: [facility] [address] [place] [address] [phone] Pete escobedo MD CLIA: [id number] Not Available [facility] (Lab Registration) [address] , [place], [address], 02/18/2022 06:14:40 02/18/20 22 02/18/2022 VITAM IN [...] of Medic ine). 2010. Dieta ry refer angelo arredondo es for calci um and D. Callie george DC: The [facility] Press . 2. Janeth ortez MF, Pacheco carney [place], Gary off-F errar i MCCLURE, et al. Evalu ation , treat ment, and preve ntion of vitam in D defic iency : an Endoc rine Socie ty clini [place] pract ice guide line. JCEM. 2010; 96(7) :1911 -30. Perfo rmed at: [facility] n [address] [facility], [place] [id number] [facility] Lab Direc tor: Presley sun PhD, Phone : [phone] SENT TO REFER ENCE LAB Not Available [facility] (Lab Registration) [address] [place], [address], 02/18/2022 06:14:40 04/26/20 22 04/26/2022 influ brenden virus A + B + SARS- CoV-2 (COVI D19) Ag panel , rapid IA, upper respi rator y speci men FLU A negati ve Not Available [address], [address], 04/23/2022 15:36:41 04/26/20 22 04/26/2022 influ brenden virus A + B + SARS- CoV-2 (COVI D19) Ag panel , rapid IA, upper respi rator y speci men FLU B negati ve Not Available [address], [address], 04/23/2022 15:36:41 04/26/20 22 04/26/2022 influ brenden virus A + B + SARS- CoV-2 (COVI D19) Ag panel , rapid IA, upper respi rator y speci men SARS COV + SARS OV 2 negati ve Not Available [address], [address], 04/23/2022 15:36:41 08/26/19 23 08/25/2022 CBC AUTO W DIFF WBC 4.8 10 4.5-11 .5 Not Available [facility] (Lab Registration) [address], [place], [address], 08/25/2022 17:06:40 08/26/19 23 08/25/2022 CBC AUTO W DIFF RBC 4.56 10 4.25-5 .57 Not Available [facility] (Lab Registration) [address] [place], [address], 08/25/2022 17:06:40 08/26/19 23 08/25/2022 CBC AUTO W DIFF HGB 13.7 g/dL 12.0-1 5.7 Not Available [facility] (Lab Registration) [address] [place], [address], 08/25/2022 17:06:40 08/26/19 23 08/25/2022 CBC AUTO W DIFF HCT 41.2 % 36.0-4 7.0 Not Available [facility] (Lab Registration) [address] [place], [address], 08/25/2022 17:06:40 08/26/19 23 08/25/2022 CBC AUTO W DIFF MCV 90.4 fL 80-95 Not Available [facility] (Lab Registration) [address] [place], [address], 08/25/2022 17:06:40 08/26/19 23 08/25/2022 CBC AUTO W DIFF MCH 30.0 pg 27.0-3 4.0 Not Available [facility] (Lab Registration) [address] [place], [address], 08/25/2022 17:06:40 08/26/19 23 08/25/2022 CBC AUTO W DIFF MCHC 33.3 g/dL 32.0-3 6.0 Not Available [facility] (Lab Registration) [address] [place], [address], 08/25/2022 17:06:40 08/26/19 23 08/25/2022 CBC AUTO W DIFF platelet count 223 10 150-45 0 Not Available [facility] (Lab Registration) [address] [place], [address], 08/25/2022 17:06:40 08/26/19 23 08/25/2022 CBC AUTO W DIFF RDW 12.9 % 12.3-1 5.1 Not Available [facility] (Lab Registration) [address] [place], [address], 08/25/2022 17:06:40 08/26/19 23 08/25/2022 CBC AUTO W DIFF MPV 9.4 fL 7.4-10 .4 Not Available [facility] (Lab Registration) [address] [place], [address], 08/25/2022 17:06:40 08/26/19 23 08/25/2022 CBC AUTO W DIFF granulocyte% 48.6 % 40-75 Not Available [facility] (Lab Registration) [address] [place], [address], 08/25/2022 17:06:40 08/26/19 23 08/25/2022 CBC AUTO W DIFF lymphocyte% 34.0 % 15-57 Not Available [facility] (Lab Registration) [address] [place], [address], 08/25/2022 17:06:40 08/26/19 23 08/25/2022 CBC AUTO W DIFF monocyte% 12.8 % 4.0-12 .0 high Not Available [facility] (Lab Registration) [address] [place], [address], 08/25/2022 17:06:40 08/26/19 23 08/25/2022 CBC AUTO W DIFF eosinophil% 3.8 % 0.0-4. 0 Not Available [facility] (Lab Registration) [address] [place], [address], 08/25/2022 17:06:40 08/26/19 23 08/25/2022 CBC AUTO W DIFF basophil% 0.6 % 0.0-1. 0 Not Available [facility] (Lab Registration) [address] [place], [address], 08/25/2022 17:06:40 08/26/19 23 08/25/2022 CBC AUTO W DIFF immature granulocytes % 0.2 % 0.0-0. 8 Not Available [facility] (Lab Registration) [address] [place], [address], 08/25/2022 17:06:40 08/26/19 23 08/25/2022 CBC AUTO W DIFF granulocyte# 2.32 10 Not Available [facility] (Lab Registration) [address] [place], [address], 08/25/2022 17:06:40 08/26/19 23 08/25/2022 CBC AUTO W DIFF lymphocyte# 1.62 10 Not Available [facility] (Lab Registration) [address] [place], [address], 08/25/2022 17:06:40 08/26/19 23 08/25/2022 CBC AUTO W DIFF monocyte# 0.61 10 Not Available [facility] (Lab Registration) [address] [place], [address], 08/25/2022 17:06:40 08/26/19 23 08/25/2022 CBC AUTO W DIFF eosinophil# 0.18 10 Not Available [facility] (Lab Registration) [address] [place], [address], 08/25/2022 17:06:40 08/26/19 23 08/25/2022 CBC AUTO W DIFF basophil# 0.03 10 Not Available [facility] (Lab Registration) [address] [place], [address], 08/25/2022 17:06:40 08/26/19 23 08/25/2022 CBC AUTO W DIFF immature granulocytes # 0.01 10 Not Available [facility] (Lab Registration) [address] [place], [address], 08/25/2022 17:06:40 08/26/19 23 08/25/2022 CBC AUTO W DIFF manual differential NO Not Available [facility] (Lab Registration) [address] [place], [address], 08/25/2022 17:06:40 08/26/19 23 08/25/2022 CBC AUTO W DIFF note Unles s other ramirez noted testi ng perfo rmed at: [facility] [address] [place] [address] [phone] Pete ecsobedo MD CLIA: [id number] Not Available [facility] (Lab Registration) [address] [place], [address], 08/25/2022 17:06:40 08/26/19 23 08/25/2022 HEMOG LOBIN A1C glycosylated hemoglobin A1C 6.0 % 4.5-6. 2 Not Available [facility] (Lab Registration) [address] [place], [address], 08/25/2022 17:35:57 08/26/19 23 08/25/2022 HEMOG LOBIN A1C estimated average glucose 126 mg/dL 82-131 Not Available [facility] (Lab Registration) [address] [place], [address], 08/25/2022 17:35:57 08/26/19 23 08/25/2022 HEMOG LOBIN A1C note Unles s other ramirez noted testi ng perfo rmed at: [facility] [address] [place] [address] [phone] Pete escobedo MD CLIA: [id number] Not Available [facility] (Lab Registration) [address] [place], [address], 08/25/2022 17:35:57 08/26/19 23 08/25/2022 THYRO ID STIMU LATIN G HORMO NE thyroid stimulating hormone 1.04 mIU/m L 0.34-4 .80 Not Available [facility] (Lab Registration) [address] [place], [address], 08/25/2022 17:57:14 08/26/19 23 08/25/2022 THYRO ID STIMU LATIN G HORMO NE note Unles s other ramirez noted testi ng perfo rmed at: [facility] [address] [place] [address] [phone] Pete escobedo MD CLIA: [id number] Not Available [facility] (Lab Registration) [address] [place], [address], 08/25/2022 17:57:14 08/26/19 23 08/25/2022 COMP METAB OLIC PANEL sodium 141 mmol/ L 136-14 5 Not Available [facility] (Lab Registration) [address] [place], [address], 08/25/2022 17:57:16 08/26/19 23 08/25/2022 COMP METAB OLIC PANEL potassium 4.4 mmol/ L 3.5-5. 1 Not Available [facility] (Lab Registration) [address] [place], [address], 08/25/2022 17:57:16 08/26/19 23 08/25/2022 COMP METAB OLIC PANEL chloride 102 mmol/ L 98-107 Not Available [facility] (Lab Registration) [address] [place], [address], 08/25/2022 17:57:16 08/26/19 23 08/25/2022 COMP METAB OLIC PANEL carbon dioxide 30 mmol/ L 21-32 Not Available [facility] (Lab Registration) [address] [place], [address], 08/25/2022 17:57:16 08/26/19 23 08/25/2022 COMP METAB OLIC PANEL anion gap 9.0 Not Available [facility] (Lab Registration) [address] [place], [address], 08/25/2022 17:57:16 08/26/19 23 08/25/2022 COMP METAB OLIC PANEL glucose 105 mg/dL 70-110 Not Available [facility] (Lab Registration) [address] [place], [address], 08/25/2022 17:57:16 08/26/19 23 08/25/2022 COMP METAB OLIC PANEL blood urea nitrogen 25 mg/dL 7-18 high Not Available [facility] (Lab Registration) [address] [place], [address], 08/25/2022 17:57:16 08/26/19 23 08/25/2022 COMP METAB OLIC PANEL creatinine 1.2 mg/dL 0.6-1. 0 high Not Available [facility] (Lab Registration) [address], [place], [address], 08/25/2022 17:57:16 08/26/19 23 08/25/2022 COMP METAB OLIC PANEL BUN/creatini ne ratio 20.8 ratio 9-21 Not Available [facility] (Lab Registration) [address] [place], [address], 08/25/2022 17:57:16 08/26/19 23 08/25/2022 COMP METAB OLIC PANEL estimated glom filtration rate 46 mL/mi n >60- low Not Available [facility] (Lab Registration) [address] [place], [address], 08/25/2022 17:57:16 08/26/19 23 08/25/2022 COMP METAB OLIC PANEL total protein 7.3 g/dL 6.4-8. 2 Not Available [facility] (Lab Registration) [address] [place], [address], 08/25/2022 17:57:16 08/26/19 23 08/25/2022 COMP METAB OLIC PANEL albumin 4.1 g/dL 3.4-5. 0 Not Available [facility] (Lab Registration) [address] [place], [address], 08/25/2022 17:57:16 08/26/19 23 08/25/2022 COMP METAB OLIC PANEL calcium 10.4 mg/dL 8.5-10 .1 high Not Available [facility] (Lab Registration) [address] [place], [address], 08/25/2022 17:57:16 08/26/19 23 08/25/2022 COMP METAB OLIC PANEL corrected calcium 10.3 mg/dL 8.5-10 .1 high Not Available [facility] (Lab Registration) [address] [place], [address], 08/25/2022 17:57:16 08/26/19 23 08/25/2022 COMP METAB OLIC PANEL bilirubin total 0.5 mg/dL 0.4-1. 5 Not Available [facility] (Lab Registration) [address] [place], [address], 08/25/2022 17:57:16 08/26/19 23 08/25/2022 COMP METAB OLIC PANEL AST (SGOT) 36 U/L 15-37 Not Available [facility] (Lab Registration) [address] [place], [address], 08/25/2022 17:57:16 08/26/19 23 08/25/2022 COMP METAB OLIC PANEL ALT (SGPT) 53 U/L 12-78 Not Available [facility] (Lab Registration) [address], [place], [address], 08/25/2022 17:57:16 08/26/19 23 08/25/2022 COMP METAB OLIC PANEL alk phosphatase 79 U/L 53-141 Not Available [facility] (Lab Registration) [address], [place], [address], 08/25/2022 17:57:16 08/26/19 23 08/25/2022 COMP METAB OLIC PANEL note Unles s other ramirez noted testi ng perfo rmed at: [facility] [address] [place] [address] [phone] Pete escobedo MD CLIA: [id number] Not Available [facility] (Lab Registration) [address] [place], [address], 08/25/2022 17:57:16 08/26/19 23 08/25/2022 LIPID PANEL triglyceride 317 mg/dL 20-200 high The Natio nal Juliet stero l Educa tion Progr am (NCEP ) has set the follo wing guide lines for Fasti ng Trigl yceri pedro: AMARILIS L: <150 mg/dL BORDE RLINE HIGH: 150 - 199 mg/dL HIGH: 200 - 499 mg/dL VERY HIGH: > or =500 mg/dL Not Available [facility] (Lab Registration) [address] [place], [address], 08/25/2022 17:58:19 08/26/19 23 08/25/2022 LIPID PANEL cholesterol 267 mg/dL 0-200 high The Natio nal Juliet stero l Educa tion Progr am (RIEP ) has set the follo wing guide lines for Fasti ng Juliet stero l: ROWENA ABLE: <200 mg/dL BORDE RLINE HIGH: 200 - 239 mg/dL HIGH: > or =240 mg/dL Not Available [facility] (Lab Registration) [address] [place], [address], 08/25/2022 17:58:19 08/26/19 23 08/25/2022 LIPID PANEL HDL cholesterol 40 mg/dL 60- low The Natio nal Juliet stero l Educa tion Progr am (NCEP ) has set the follo wing guide lines for Fasti ng HDL Juliet stero l: LOW HDL: <40 mg/dL AMARILIS L: 40 - 60 mg/dL ROWENA ABLE: >60 mg/dL Not Available [facility] (Lab Registration) [address] [place], [address], 08/25/2022 17:58:19 08/26/19 23 08/25/2022 LIPID PANEL [...] > or = 190 mg/dL Not Available [facility] (Lab Registration) [address] [place], [address], 08/25/2022 17:58:19 04/05/20 23 08/25/2022 LIPID PANEL chol/HDL ratio 7 ratio -5 high Not Available [facility] (Lab Registration) [address] [place], [address], 08/25/2022 17:58:19 08/26/19 23 08/25/2022 LIPID PANEL note Unles s other ramirez noted testi ng perfo rmed at: [facility] [address] [place] [address] [phone] Pete escobedo MD CLIA: [id number] Not Available [facility] (Lab Registration) [address] [place], [address], 08/25/2022 17:58:19 08/26/19 23 08/25/2022 VITAM IN B12 vitamin B12 740 pg/mL 193-98 6 Not Available [facility] (Lab Registration) [address] [place], [address], 08/25/2022 17:58:21 08/26/19 23 08/25/2022 VITAM IN B12 note Unles s other ramirez noted testi ng perfo rmed at: [facility] [address] [place] [address] [phone] Pete escobedo MD CLIA: [id number] Not Available [facility] (Lab Registration) [address] [place], [address], 08/25/2022 17:58:21 08/26/19 23 08/25/2022 VITAM IN D TOTAL (D2+D 3) vitamin D25 (D2+D3) 29.9 NG/mL 30-100 low Not Available [facility] (Lab Registration) [address] [place], [address], 08/25/2022 17:58:23 08/26/19 23 08/25/2022 VITAM IN D TOTAL (D2+D 3) note Unles s other ramirez noted testi ng perfo rmed at: [facility] [address] [place] [address] [phone] Pete escobedo MD CLIA: [id number] Not Available [facility] (Lab Registration) [address], [place], [address], 08/25/2022 17:58:23 Result Notes None recorded. Problems Name Problem SNOMED Code Status Onset Date Resolution Date Notes Provider Name and Address Organization Details Recorded Time Hypertensive disorder 99741024 Active 2021 Not Available [facility] 18:09:05 Hypothyroidis m 71943439 Active 2021 Not Available [facility] 3 18:09:05 Hyperglycemia 99697134 Active 2021 Not Available [facility] 3 18:09:06 Hypercholeste rolemia 14184977 Active 2021 Not Available [facility] 3 18:09:05 History of malignant neoplasm of breast 610552708 Active 2021 Not Available [facility] 3 18:09:05 Obesity 967348986 Active 2021 Not Available [facility] 3 18:09:05 Sleep apnea 17575522 Active 2021 Not Available [facility] 3 18:09:06 Restless legs 77288479 Active 2021 Not Available [facility] 3 18:09:05 Gastroesophag eal reflux disease 965970701 Active 2021 Not Available [facility] 3 18:09:05 Hyperlipidemi a 07117481 Active 2021 Not Available [facility] 3 18:09:06 Abnormal vasomotor function 60139052 Active 2021 Not Available [facility] 3 18:09:06 Osteoarthriti s 423748577 Active 2022 Not Available [facility] 3 18:09:05 Problem Notes None recorded. Procedures Surgical History Date Name Laterality Status Provider Name and Address Organization Details Recorded Time 08/26/19 23 Medicare Annual Wellness Visit Health Risk Assessment completed India Callesi [place] [facility] [place] [facility] [place] 08/25/2022 10:00:34 02/18/20 22 Skin Tag Removal completed Farhad Norman MD [address] [place] [address], [phone] [place] [facility] [place] [facility] [place] 02/17/2022 10:17:05 08/26/19 21 Date of Last Colonoscopy completed Lauren Yuniel [place] [facility] [place] 08/19/2022 11:26:17 08/26/19 21 Colonoscopy completed Lauren Yuniel [place] [facility] [place] 08/19/2022 11:29:55 05/23/19 12 Breast Surgery completed Laura Short [place] [facility] [place] 04/23/2022 15:17:03 05/23/19 06 Joint Replacement completed India Callesi [place] [facility] [place] 02/17/2022 08:44:23 Carpal tunnel surgery completed Roxy [place] [facility] [place] 02/16/2022 16:46:11 replacement of bilateral knee joints completed Roxy [place] [facility] [place] 02/16/2022 16:46:24 laparoscopic adjustable gastric banding completed Roxy [place] [facility] [place] 02/16/2022 16:46:34 Gallbladder Surgery completed Roxy [place] [facility] [place] 02/16/2022 16:46:46 prophylactic bilateral mastectomy completed Roxy [place] [facility] [place] 02/16/2022 16:47:09 Appendectomy completed Roxyelliot Falconord [place] [facility] [place] 02/16/2022 16:47:15 Appendectomy completed Laura Short [place] [facility] [place] 04/23/2022 15:17:03 Imaging Results None recorded. Procedure Notes None recorded. Medical Equipment None Reported. Allergies Allergen ID Allergen Name Allergen Category Reaction Reaction Severity Criticality Documentation Date Start Date Code Code System Note Provider Name and Address Organization Details Recorded Time 10819 quinine Not available hives Not available Not available 02/16/2022 9071 RxNorm CATA Brennan [facility] & [place] 2 16:42:33 46809 Product containin g penicilli n (product) medicatio n anaphylax is Not available Not available 02/16/2022 03912 8001 SNOMED CATA Sewell [facility] & [place] 2 08:44:12 80574 Famvir medicatio n anaphylax is Not available Not available 02/16/2022 86343 3 RxNorm CATA Sewell [facility] & [place] 2 08:44:12 81187 penicilli n G Not available hives moderate Not available 02/17/2022 7980 RxNorm CATA Sewell [facility] & [place] 2 08:44:12 83330 anastrozo le medicatio n arthralgi a (joint pain) severe Not available 08/19/20222015 51321 [facility] Available [facility] 3 18:09:05 Medications Name Sig Start Date [...] Updated DateTime 3 167.64 cm 51.6 kg/m2 597149. 4 g 97.5 [degF] 96 % 96 % 66 /min 16 /min 106 mm[Hg] 66 mm[Hg] India IVY [facility] - [place] & [place] 3 09:54:25 Date Recorded Body height Body mass index (BMI) Body weight Body temperature Oxygen saturation Oxygen saturation in Arterial blood by Pulse oximetry Heart rate Respiratory rate Systolic blood pressure Diastolic blood pressure Provider Name and Address Organization Details Last Updated DateTime 3 167.64 cm 50.5 kg/m2 596785. 69 g 97.9 [degF] 95 % 95 % 85 /min 16 /min 123 mm[Hg] 80 mm[Hg] India IVY [facility] & [place] 3 10:51:52 Date Recorded Body height Body mass index (BMI) Body weight Body temperature Oxygen saturation Oxygen saturation in Arterial blood by Pulse oximetry Heart rate Respiratory rate Systolic blood pressure Diastolic blood pressure Provider Name and Address Organization Details Last Updated DateTime 2 167.64 cm 50.6 kg/m2 083550. 13 g 97.3 [degF] 98 % 98 % 60 /min 18 /min 115 mm[Hg] 65 mm[Hg] India Calles [facility] & [place] 2 08:43:26 Date Recorded Body height Body mass index (BMI) Body weight Body temperature Oxygen saturation Oxygen saturation in Arterial blood by Pulse oximetry Heart rate Systolic blood pressure Diastolic blood pressure Provider Name and Address Organization Details Last Updated DateTime 2 167.64 cm 50.8 kg/m2 612229. 6 g 98.2 [degF] 90 % 90 % 83 /min 134 mm[Hg] 80 mm[Hg] Laura IVY [facility] & [place] 2 15:16:39 Social History Question Answer Notes LastModified by [employer] Details LastModified Time Tobacco Smoking Status Former Smoker Roxy Taveras [facility] & [place] 02/16/2022 16:45:54 Do You Have An Advance Directive? Yes Information not available 04/23/2022 When Did You Quit Smoking? 11-15yearssi [email or web address] ette Information not available 04/23/2022 What Was The Date Of Your Most Recent Tobacco Screening? 04/23/2022 Information not available 04/23/2022 Has Tobacco Cessation Counseling Been Provided? No Information not available 04/23/2022 Sex: Unknown Functional Status Question Answer Note LastModified by [employer] ion Details LastModified Time Do you use any illicit or recreational drugs? No [email or web address] Information not available 02/17/2022 Do you or have you ever used any other forms of tobacco or nicotine? No Information not available 04/23/2022 What is your level of alcohol consumption? None Information not available 04/23/2022 Mental Status None recorded. Family History Relationship Description Onset Age of this Age Resolved Age Notes LastModified by Organization Details LastModified Time Mother Malignant tumor of [email or web address] Not available 04/23/2022 14:37:38 Father Alzheimer's disease [facility] [email or web address] Not available 04/23/2022 14:37:38 Brother [email or web address] Not available 02/16/2022 16:45:33 Brother [facility] sclerosis [email or web address] Not available 02/16/2022 16:45:43 Medical History Condition Response Obesity Y Arthritis Y High Cholesterol N Cancer Y Back Problems Y Thyroid Problems Y Obstructive Sleep Apnea Y Hypertension Y Hypothyroidism Y Acne Y Gynecological History Statement/Question Response Menses Monthly N Date of Last Pap Smear Date of Last Colonoscopy 08/25/2020 Date of LMP 07/21/1996 Obstetrics History GPAL:G 0 P 0 0 0 0 Immunizations Vaccine Type Date Status Note Provider Nam e and Address Organization Details Recorded Time Influenza, high-dose, quadrivalent, PF 02/11/2021 completed Not Available [facility] 3 18:09:06 COVID-19, mRNA, LNP-S, PF, 30 mcg/0.3 mL dose 06/26/2020 completed Not Available [facility] 3 18:09:06 COVID-19, mRNA, LNP-S, PF, 30 mcg/0.3 mL dose 07/22/2020 completed Not Available [facility] 3 18:09:06 COVID-19, mRNA, LNP-S, PF, 30 mcg/0.3 mL dose 02/16/2021 completed Not Available [facility] 3 18:09:06 COVID-19, mRNA, LNP-S, PF, 30 mcg/0.3 mL dose, katina-sucrose 08/26/2021 completed Not Available [facility] 023 18:09:06 Influenza, high-dose, quadrivalent, PF 02/11/2022 completed Not Available [facility] 3 18:09:06 COVID-19, mRNA, LNP-S, bivalent, PF, 30 mcg/0.3 mL dose 02/11/2022 completed Not Available [facility] 3 18:09:06 Past Encounters Encounter ID Performer Location Encounter Start Date Encounter Closed Date Diagnosis/Indication Diagnosis SNOMED-CT Code Diagnosis ICD10 Code Diagnosis Note [id number] Farhad Norman MD [address] [address] 02/17/2022 08:26:05 02/17/2022 10:22:03 Gastroesophageal reflux disease 257938921 K21.9 Hyperglycemia 51247311 R 73.9 Will obtain lab work today Hyperlipidemia 77130256 E78.5 awaiting lab Hypothyroidism 33463522 E03.9 patient is currently on levo thyroxine will obtain lab work. Multiple skin tags 33080 7009 L91.8 Skin tags removed. Patient tolerated procedure well. [id number] Olga Lidia Jeter APRN [address] [address] 04/23/2022 14:37:29 04/23/2022 15:44:02 Acute upper respiratory infection 38375623 J06.9 R05.1 Patient likely has an acute [...] reviewed appropriat e doses. Follow-up as below. [id number] Jayro Ponce MD [address] [address] 07/29/2022 14:39:15 07/30/2022 15:52:22 Acute bronchitis 03650031 J20.9 See orders. Seek medical care if symptoms become severe. Dyspnea 243145579 R06.00 See orders Acute uppe r respiratory infection 17776098 J06.9 [id number] Farhad Norman MD [facility] [address] [address] 08/25/2022 09:36:16 08/25/2022 10:45:14 Hypertensive disorder 72597780 I10 labs drawn by lang MENDES OBTAIN LAB WORK TODAY. PATIENT TO CONTINUE WITH HER CURRENT REGIMEN. Adult heal th examination 312300631 Z00.00 Hyperlipidemia 06202675 E78.5 awaiting lab Osteoarthritis 717895257 M19.90 WILL START PATIENT HAS MOBIC PER REQUEST. I WILL START HER ON CELEBREX. Allergic rhinitis 521730 04 J30.9 I WILL START PATIENT ON ZYRTEC. [id number] Farhad Norman MD [address] [address] 10/07/2022 10:37:34 10/07/2022 11:07:20 Disorder of rotator cuff 859739840 M75.82 in view of patient's pain will [...] Michelle Member ID Guarantor Name 04/13/2019 1 [facility] (MEDICARE SUPPLEMENT) [id number] Tri Ricardo [id number] Tri Ricardo 04/13/2019 2 [facility] [id number] Tri Ricardo [id number] Tri Ricardo 12/10/2023 1 [facility] (MEDICARE REPLACEMENT/A DVANTAGE - PPO) [id number] Tri Ricardo [id number] Tri Ricardo Notes Date Note Type Note Provider Name and Address Organization Details Recorded Time 02/17/2022 text/html patient presents for routine follow-up. She denies any new issues. She does have several skin tags she wants removed from her left side of the neck Farhad Norman MD [address] [facility], [place], [address], [facility] & [place] 02/17/2022 15:06:50 04/23/2022 text/html Upper Respirator y [...] ue;sore throat;headache;chill s;malaise Olga Lidia Jeter APRN [address] [place] [address], [phone], [facility] & [place] 05/09/2022 15:08:58 07/29/2022 text/html 81-year-old fema le [...] painPatient does have fatigue. Jayro Ponce MD [address] [place] [address], [phone], [facility] & [place] 07/29/2022 15:42:05 08/25/2022 text/html PATIENT PRESENTS FOR ANNUAL MEDICARE PHYSICAL EXAMINATION. SHE DENIES ANY NEW ISSUES AT THIS TIME. SHE DOES STATE THAT HER ALLERGIC RHINITIS IS FLARING UP. SHE ALSO NEEDS SOMETHING ELSE FOR HER CHRONIC ARTHRITIS. SHE IS CURRENTLY ON MOBIC. SHE STATES THAT IT IS NO LONGER EFFECTIVE. Farhad Norman MD [address] [place] [address], [phone], [facility] & [place] 08/25/2022 10:55:05 10/07/2022 text/html patient presents today complaining of left shoulder pain. She denies any actual injury however wrote patient and abduction elicits pain. Symptoms have been going on for 10 days. Farhad Norman MD [address] [place] [address], [place], [address], [facility] - [place] & [place] 10/07/2022 11:12:26 OBGyn Episode No OBEpisode recorded.
--- OUTSIDE RECORDS SUMMARY | 2024-11-21 10:52 | XMS_ITS | Data Portability ---
Author Organization [facility] Address [address] [facility] [facility] [address] [place] [address] Care Team Providers Care Supplier Relationship Director Name Role Phone MARITZA ELISE Primary Care Provider Assessment No assessment recorded. Plan of Treatment Reminders Order Date Submit Date Provider Last Modified By Organization Details Last Modified Time Details Appointments None recorded. Lab None recorded. Referral None recorded. Procedures None recorded. Surgeries None recorded. Imaging None recorded. Medication Orders clindamycin 1 % lotion 2023 024 [email or web address] [facility], [address] [place] [address], [address], 15:48:02 Patient TargetsNo targets recorded. Patient InstructionsNo instructions recorded. Reason for Referral None Reported. Medical Equipment None Reported. Allergies Allergen ID Allergen Name Allergen Category Reaction Reaction Severity Criticality Documentation Date Start Date Code Code System Note Provider Name and Address Organization Details Recorded Time 047975 Product containin g penicilli n (product) medicatio n hives Not available Not available 02/28/2024 56780 8001 SNOMED Kylah Rob [facility] 15:26:55 668155 quinidine Not available hair loss Not available Not available 02/28/2024 9068 RxNorm SOB [facility] 15:27:54 Medications Name Sig Start Date [...] SNOMED-CT Code Diagnosis ICD10 Code Diagnosis Note [id number] QM_[place] [address] 08/26/2016 05:40:37 08/26/2016 05:40:37 [id number] SAL FLOWERS MD [place] [address] [place] [address] 02/28/2024 14:52:28 02/29/2024 16:17:36 Multiple benign melanocytic nevi 371180018 D22.5 - Benign lesions seen on exam [...] changing or worrisome lesions Seborrheic keratosis 394 425260 L82.1 - Benign overgrowth s of skin - Hereditary Senile angioma 2206926 I 78.1 - Benign blood vessel growths - Hereditary Solar lentigo 04003386 L 81.4 - Benign brown spots - Sun-induce d Rosacea 759673581 L71.8 L70.0 Nature of the diagnosis discussed [...] Michelle Member ID Guarantor Name 02/29/2024 1 [facility] Tri Ricardo [id number] Tri Ricardo Notes Date Note Type Note Provider Name and Address Organization Details Recorded Time 02/28/2024 text/html Last seen 2021Hx of rosacea, rx doxy prn, rx metro 0.75% gel Waist up, no skin cancer hxI have some place on the chin and skin tags SAL FLOWERS MD [address] [place] [address], [phone], [facility] 02/28/2024 15:54:09 OBGyn Episode No OBEpisode recorded.
== END 2024-11-19 23:59 | disposition home or self-care (01) ==
LOC: LAB.DROPOF 11-21 10:47
PROVIDERS: PCP Family Medicine; Visit Provider Family Medicine
DX: E03.9 Hypothyroidism, unspecified (principal)
CPT/HCPCS: 84443

== ENCOUNTER 2025-02-21 11:19 | Outpatient (CLI) | payer MEDICARE, SELFPAY ==
--- OUTSIDE RECORDS SUMMARY | 2025-01-30 10:10 | XMS_ITS | Encounter Summary ---
Author Organization [facility] Address [address] [place] [address] Care Team Providers Care Pipe Washer Name Role Phone Eleno Lantigua MD Primary Care Provider [phone] Reason for Visit * Reason Comments Follow-up 1 year recheck- Hist ory of total knee arthroplasty, right Encounter Details Date Type Department Care Team (Late st Contact Info) Description 01/30/2025 10:10 AM EDT Office Visit [facility] [address] [place] [address] Alvarez Herrmann MD [address] [facility] [address] [place] [address] History of total knee arthroplasty, right (Primary Dx) Social History Tobacco Use Types Packs/Day Years Used Date Smoking Tobacco: Former Cigarettes 1 10 0 05/23/1954 - 05/23/1964 Smokeless Tobacco: Never Alcohol Use Standard Drinks/Week Comments No 0 (1 standard drink = 0.6 oz pur e alcohol) PHQ-2 Answer Date Recorded Retired Total Score 0 08/14/2020 Comments No Sex and Gender Information Value Date Recorded Sex Assigned at Female 11/21/2024 8:28 AM EDT Legal Sex Female 10:16 AM EDT Gender Identity Not on file Sexual Orientation Straight 11/21/2024 8: 28 AM EDT documented as of this encounter Last Filed Vital Signs Vital Sign Reading Time Taken Comments Blood Pressure 152/84 01/30/2025 9:47 AM EDT Pulse - - Temperature - - Respiratory Rate - - Oxygen Saturation - - Inhaled Oxygen Concentration - - Weight 131 kg (289 lb) 01/30/2025 9:47 AM EDT Height 167.6 cm (5' 5.98 ) 01/30/2025 9:47 AM ED T Body Mass Index 46.67 01/30/2025 9:47 AM EDT documented in this encounter Progress Notes * Alvarez Herrmann MD - 01/30/2025 10:10 AM EDT Images from the original note were not included. [facility] Note Subjective Chief Complaint Patient presents with Follow-up 1 year recheck- History of total knee arthroplasty, right HPI It has been 1 year(s) since Ms. Ricardo's last visit. She returns to clinic today for follow-up of right knee arthroplasty. The issue has been ongoing for 19 year(s). She rates her pain a 2/10 on the pain scale. Previous/current treatments: cane/walker and physical therapy. Current symptoms: pain and stiffness. The pain is worse with walking and standing; resting improve the pain. Overall, she is doing better. Occasional lateral knee pain. I have reviewed the following portions of the patient's history and agree with: History of Present Illness and Review of Systems Patient Active Problem List Diagnosis History of right breast cancer Overweight H/O oophorectomy Uterine polyp Malignant neoplasm of lower-outer quadrant of right female breast PMB (postmenopausal bleeding) Thickened endometrium UTI (urinary tract infection) due to urinary indwelling catheter Hypothyroidism (acquired) Essential hypertension Acute appendicitis Gastroesophageal reflux disease Hypercholesterolemia Hyperlipidemia YESENIA (obstructive sleep apnea) Obesity Past Medical History: Diagnosis Date Arthritis Back pain Breast cancer Right Breast CA, no limb restrictions per patient. Hot flashes Hypertension Seasonal allergies Sleep apnea with use of continuous positive airway pressure (CPAP) compliant with machine Wears dentures upper Wears glasses Past Surgical History: Procedure Laterality Date APPENDECTOMY N/A 04/02/2020 Procedure: APPENDECTOMY LAPAROSCOPIC; Surgeon: Tim Reed MD; Location: [facility]; Service:General; Laterality: N/A; CARPAL TUNNEL RELEASE bilat CHOLECYSTECTOMY COLONOSCOPY 2010 D & C HYSTEROSCOPY N/A 12/19/2017 Procedure: HYSTEROSCOPY WITH MYOSURE; Surgeon: Malia Petersen MD; Location: [facility]; Service: Gynecology JOINT REPLACEMENT bilat knee replaced KNEE SURGERY right had to clear up scar tissue LAPAROSCOPIC OOPHORECTOMY 03/2014 unsure which one but removal of just one MASTECTOMY W/ SENTINEL NODE BIOPSY Bilateral 05/04/2012 [place] node biopsy on the right WISDOM TOOTH EXTRACTION all 4 No family history on file. Social History Socioeconomic History Marital status: Tobacco Use Smoking status: Former Current packs/day: 0.00 Average packs/day: 1 pack/day for 10.0 years (10.0 ttl pk-yrs) Types: Cigarettes Start date: 05/23/1954 Quit date: 05/23/1964 Years since quittin.7 Smokeless tobacco: Never Vaping Use Vaping status: Never Used Substance and Sexual Activity Alcohol use: No Drug use: No Sexual activity: Not Currently control/protection: Tubal ligation, control pill Current Outpatient Medications on File Prior to Visit Medication Sig Dispense Refill acetaminophen (TYLENOL) 500 MG tablet Take 1 tablet by mouth Every 6 (Six) Hours As Needed for MildPain. celecoxib (CeleBREX) 100 MG capsule Take 1 capsule by mouth Daily. Cholecalciferol (VITAMIN D3) 2000 units tablet Take 1 tablet by mouth Daily. hydroCHLOROthiazide 12.5 MG tablet magnesium hydroxide (MILK OF MAGNESIA) 2400 MG/10ML suspension suspension Take 5 mL by mouth. meloxicam (MOBIC) 15 MG tablet metoprolol succinate XL (TOPROL-XL) 25 MG 24 hr tablet Take 1 tablet by mouth Daily. Multiple Vitamins-Minerals (CENTRUM SILVER PO) Take 1 tablet by mouth Daily. rOPINIRole (REQUIP) 1 MG tablet Synthroid 100 MCG tablet No current facility-administered medications on file prior to visit. Allergies Allergen Reactions Famvir [Famciclovir] Hives and Shortness Of Breath Penicillins Hives and Shortness Of Breath Taken with famvir so doesn't know if fully allergic to pcn Arimidex [Anastrozole] Other (See Comments) Severe arthralgias Quinine Derivatives Hives Review of Systems Constitutional: Negative for activity change, appetite change, chills, diaphoresis, fatigue, fever and unexpected weight change. HENT: Negative for congestion, dental problem, drooling, ear discharge, ear pain, facial swelling, hearing loss, mouth sores, nosebleeds, postnasal drip, rhinorrhea, sinus pressure, sneezing, sore throat, tinnitus, trouble swallowing and voice change. Eyes: Negative for photophobia, pain, discharge, redness, itching and visual disturbance. Respiratory: Negative for apnea, cough, choking, chest tightness, shortness of breath, wheezing andstridor. Cardiovascular: Negative for chest pain, palpitations and leg swelling. Gastrointestinal: Negative for abdominal distention, abdominal pain, anal bleeding, blood in stool,constipation, diarrhea, nausea, rectal pain and vomiting. Endocrine: Negative for cold intolerance, heat intolerance, polydipsia, polyphagia and polyuria. Genitourinary: Negative for decreased urine volume, difficulty urinating, dysuria, enuresis, flank pain, frequency, genital sores, hematuria and urgency. Musculoskeletal: Positive for arthralgias. Negative for back pain, gait problem, joint swelling, myalgias, neck pain and neck stiffness. Skin: Negative for color change, pallor, rash and wound. Allergic/Immunologic: Negative for environmental allergies, food allergies and immunocompromised state. Neurological: Negative for dizziness, tremors, seizures, syncope, facial asymmetry, speech difficulty, weakness, light-headedness, numbness and headaches. Hematological: Negative for adenopathy. Does not bruise/bleed easily. Psychiatric/Behavioral: Negative for agitation, behavioral problems, confusion, decreased concentration, dysphoric mood, hallucinations, self-injury, sleep disturbance and suicidal ideas. The patientis not nervous/anxious and is not hyperactive. Objective Physical Exam BP 152/84 Ht 167.6 cm (65.98 ) Wt 131 kg (289 lb) BMI 46.67 kg/m?? Body mass index is 46.67 kg/m??. General: Mental Status: Alert Appearance: Cooperative, in no acute distress Build and Nutrition: Obese by BMI female Orientation: Alert and oriented to person, place and time Posture: Normal Gait: Nonantalgic Integument: Right knee: Wound is well-healed with no signs of infection Lower Extremities: Right Knee: Tenderness: None Effusion: None Swelling: None Crepitus: None Range of motion: Extension: 0?? Flexion: 130?? Instability: No varus laxity, no valgus laxity, negative anterior drawer Deformities: None Imaging/Studies Imaging Results (Last 24 Hours) Procedure Component Value Units Date/Time XR Knee 3+ View With [place] Right [[id number]] Resulted: 09/10/25 1004 Updated: 01/30/251003 Narrative: Right Knee Radiographs Indication: status-post right total knee arthroplasty Views: AP, lateral, and sunrise views of the right knee Comparison: no change compared to prior study, 01/16/2024 Findings: No change in component alignment compared to the previous imaging, with no gross signs of loosening or failure. Assessment and Plan Diagnoses and all orders for this visit: 1. History of total knee arthroplasty, right (Primary) - XR Knee 3+ View With [place] Right 1. History of total knee arthroplasty, right I reviewed my findings with the patient. Her right total knee arthroplasty appears to be functioning well. I will see her back in 3 years for both of her knees, but I will be happy to see her back sooner for any problems. Return in about 3 years (around 01/31/2028) for recheck with x-rays. Alvarez Herrmann MD 01/30/25 10:22 EDT Dictated Util[employer] Dictation documented in this encounter Plan of Treatment Not on file documented as of this encounter Procedures Procedure Name Priority Date/Time Associated Diagnosis Comments XR KNEE 3+ VW W SUNRISE RIGHT Routine 01/30/2025 9:58 AM EDT History of total knee arthroplasty, right documented in this encounter Results * XR Knee 3+ View With [place] Right (01/30/2025 9:58 AM EDT) Anatomical Region Laterality Modality Lower Extremities, Knee Right Xray Narrative 01/30/2025 10:04 AM EDT Right Knee Radiographs Indication: status-post right total knee arthroplasty Views: AP, lateral, and sunrise views of the right knee Comparison: no change compared to prior study, 01/16/2024 Findings: No change in component alignment compared to the previous imaging, with no gross signs of loosening or failure. Alvarez Herrmann MD IMG DIAGNOSTIC IMAGING ORDERAB LES Final Result documented in this encounter Visit Diagnoses Diagnosis History of total knee arthroplasty, right- Primary documented in this encounter Care Teams Pipe Washer Relationship Specialty Start Date End Date Eleno Lantigua MD [address] [place] [address] PCP - General Family Medicine 08/17/23 documented as of this encounter
[2025-02-21 21:30] LABS: Thyroid Stimulating Hormone 5.47 uIU/mL (0.465-4.68)
--- OUTSIDE RECORDS SUMMARY | 2025-02-22 10:44 | XMS_ITS | Encounter Summary ---
Author Organization [facility] Address [address] [place] [address] Care Team Providers Care Press Set Up Person Name Role Phone Eleno Lantigua MD Primary Care Provider [phone]- [phone] Encounter Details Date Type Department Care Team (Late st Contact Info) Description 05/24/2012 Conversion Encounter [facility] [place] [facility] [address] [place] [address] Interface, See Report Social History Tobacco Use Types Packs/Day Years Used Date Smoking Tobacco: Never Assessed Comments Unknown Sex and Gender Information Value Date Recorded Sex Assigned at Female 11/21/2024 8:28 AM EDT Legal Sex Female 10:16 AM EDT Gender Identity Not on file Sexual Orientation Straight 11/21/2024 8: 28 AM EDT documented as of this encounter H&P Notes * Interface, See Report - 05/24/2012 1:02 PM EST Nancy Guerrero M.D. ' Cecil Durand M.D. ' Elias Laguna M.D. ' THAD Menendez M.D. ' José Melendez M.D. ' Thao Nuñez M.D. ' Kristyn Hopkins APRN [address] [facility], [address] [place] [address] [employer] NEW PATIENT EVALUATION MARIIA SHERMAN : 1940 DATE OF VISIT: 05/24/2012 PROBLEMS: 1. New diagnosis Stage I right breast cancer. a. Presentation with abnormal asymptomatic mammography. b. Subsequent biopsy revealing invasive ductal carcinoma. c. Status post bilateral mastectomies with sentinel node biopsy on the right on 05/04/2012. d. Greatest tumor dimension 0.8 cm. e. Estrogen and progesterone positive, HER-2 negative by FISH technique. f. [id number] pathologic Stage IA disease. 2. Chronic overweight condition. a. Status post lap band procedure 18 years ago - ineffective. 3. DJD. a. Status post bilateral knee replacements. 4. Status post bilateral carpal tunnel surgery. 5. Status post cholecystectomy. 6. Status post excision of benign lipoma proximal right upper extremity. 7. History of allergies including PENICILLIN-rash, QUININE-rash, and possibly FAMVIR. 8. Hypothyroidism. 9. Hypertension. 10. Hyperlipidemia. 11. Sleep apnea - chronic CPAP use. 12. History of DandC. MARIIA SHERMAN : 1940 DATE OF VISIT: 05/24/2012 CURRENT MEDICATIONS: 1. Synthroid 112 mcg daily. 2. Lisinopril/hydrochlorothiazide 20/25 mg once daily. 3. Lipitor 10 mg 1/2 pill daily. 4. Toprol 50 mg daily. 5. Vitamin D pill daily. 6. Fish oil 1 pill daily. 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 She has had routine mammography over the years. She had an abnormality involving the right breast recently which led to special views. The abnormality ended up being a skin fold but she had another area that was abnormal which was biopsied and that revealed breast cancer. She was referred to Dr. Vasquez. She ultimately underwent the above-mentioned bilateral mastectomies with right sentinel lymph node sampling on the april, almost exactly three weeks ago. She is recovering nicely from her surgery. She was somewhat large breasted. She still has Bob-Spaulding tubes in place. She otherwise feels well. She has had no systemic symptoms. She is G0, P0. She was on Prempro at a low dose three or four pills per week from 1995 until the present. She discontinued this weeks ago. She has had some hot flashes and they seem to be improving. She had a bone density study about two years ago, which she was told was normal. She takes vitamin D supplementation but no calcium. PAST MEDICAL HISTORY: MEDICATIONS and ALLERGIES see above. HABITS: Does not smoke; does not drink. SOCIAL HISTORY: She has been a for over 15 years now. 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 Her of metastatic esophageal cancer. FAMILY HISTORY: Mother developed breast cancer but it was at the age of 80. There is a history of high blood pressure in both parents. She has one sibling who is alive. She lost another brother due to complications of his MSMARIIA RAY : 1940 DATE OF VISIT: 05/24/2012 REVIEW OF SYSTEMS: Negative for any headaches, visual disturbance, seizures, change in sense of taste or smell. She has no trouble swallowing. She sleeps okay with her CPAP machine. She does have known sleep apnea. She has had no recent chest pain or palpitations. She underwent a stress test several years back by Dr. Shanna Jacob in [facility], and apparently had an abnormally elevated heart rate during that study so she was placed on metoprolol and she has remained on that. She has had no change in bowel or bladder function. She underwent colonoscopy several years ago; scheduled again in another year or two. She has no history of yellow jaundice. She has no history of hepatitis. She has no history of blood clots or phlebitis. She has no history of stomach ulcers. She has no history of TB. She has no history of diabetes. She does have a history of hypertension, and she also has other medical problems which I have listed in the above problem list. PHYSICAL EXAM: GENERAL: Pleasant, alert somewhat overweight but otherwise very healthy-appearing 71-year-old who looks younger than stated age. VITAL SIGNS: Blood pressure 118/74. Pulse is 100. Respirations are 20. Temperature is 98.2. SKIN: Skin and hair texture are normal. She is not diaphoretic. She has no adenopathy palpable. HEENT: Sclerae are anicteric. Oral mucosa is intact. NECK: Supple. JVD is normal. LUNGS: Clear. No rales or rhonchi. CARDIAC: Regular rhythm without murmur. BREASTS: Bilateral mastectomy sites nicely healed. She has Bob-Spaulding drains in both axillae. ABDOMEN: Soft and nontender. No organomegaly is present. EXTREMITIES: She has no peripheral edema whatsoever. NEUROLOGIC: Gait is normal. ASSESSMENT: Postmenopausal, small primary, well differentiated, ER and NJ positive, HER-2 negative, lymph node negative, infiltrating ductal carcinoma of the right breast. RECOMMENDATION: I would recommend that she be placed on adjuvant Arimidex. I would recommend that she take this for a period of five years. I went over the risks and benefits with her. Essentially the risks are development of osteopenia or osteoporosis and the extraordinarily rare development of osteonecrosis. MARIIA SHERMAN : 1940 DATE OF VISIT: 05/24/2012 RECOMMENDATION - continued: I will repeat her bone density test to have as a baseline. She does need to be on both vitamin D and calcium and she will be instructed regarding that. I recommended vitamin D at a dose of 400 IU b.i.d. and calcium 500 mg b.i.d. or t.i.d. as tolerated. I will see her back in four months. I will call her in about for five weeks just to see how she is doing in terms of tolerance of her Arimidex. Nancy Guerrero M.D.* JJG/rxalw Doc. ID [id number] Rev. #0 cc: Carson Vasquez M.D.* Dr. Abhi Garza M.D.* Jocelyn Lagunas M.D.* Page 2 of 4 Page 1 of 4 Authenticated by NANCY GUERRERO M.D. On 05/25/2012 06:10:54 PM * Interface, See Report - 05/24/2012 1:02 PM EST Nancy Guerrero M.D. ' Cecil Durand M.D. ' Elias Laguna M.D. ' Kunal Carpenter, THAD Barrera M.D. ' José Melendez M.D. ' Thao Nuñez M.D. ' Kristyn Hopkins APRN [facility] [address] [place] [address] [employer] CHART NOTE MARIIA SHERMAN : 1940 DATE: 06/20/2012 The patient is tolerating her aromatase inhibitor without major problem. Does have some hot flashes. I prescribed some Effexor which she will try. I will see her back in a couple of months. Nancy Guerrero M.D.* JJG/rxalw Doc. ID [id number] Rev. #0 cc: Page 1 of 1 Page 1 of 1 Authenticated by NACNY GUERRERO M.D. On 06/22/2012 03:49:21 PM * Interface, See Report - 05/24/2012 1:02 PM EST Nancy Guerrero M.D. ' Cecil Duarnd M.D. ' Elias Laguna M.D. ' THAD Menendez M.D. ' José Melendez M.D. ' Thao Nuñez M.D. ' Kristyn Hopkins APRN [facility] [facility], [address] [place] [address] OFFICE NOTE - AMENDED MARIIA SHERMAN : 1940 DATE OF VISIT: 09/21/2012 PROBLEM LIST: 1. New diagnosis Stage I right breast cancer. a. Presentation with abnormal asymptomatic mammography. b. Subsequent biopsy revealing invasive ductal carcinoma. c. Status post bilateral mastectomies with sentinel node biopsy on the right on 05/04/2012. d. Greatest tumor dimension 0.8 cm. e. Estrogen and progesterone positive, HER-2 negative by FISH technique. f. [id number] pathologic Stage IA disease. 2. Chronic overweight condition. a. Status post lap band procedure 18 years ago - ineffective. 3. DJD. a. Status post bilateral knee replacements. 4. Status post bilateral carpal tunnel surgery. 5. Status post cholecystectomy. 6. Status post excision of benign lipoma proximal right upper extremity. 7. History of allergies including PENICILLIN-rash, QUININE-rash, and possibly FAMVIR. 8. Hypothyroidism. 9. Hypertension. 10. Hyperlipidemia. 11. Sleep apnea - chronic CPAP use. 12. History of DandC. SUBJECTIVE: Getting over a sore throat. This developed earlier in the week and she saw her primary care physician who gave her ceftriaxone and she is now taking Levaquin. No chills. Did have a fever of 102.5 Tuesday evening. Feels infinitely better. Otherwise has significant hot flashes. I started her on low-dose Effexor-XR 37.5 mg a couple of months ago to abrogate those hot flashes. She was on hormone replacement at the time she was first diagnosed. The Effexor has helped perhaps a little. Otherwise no new symptomatology to speak of. PAST MEDICAL HISTORY: DRUG ALLERGIES: Penicillin, quinine, Famvir. CURRENT MEDICATIONS: Reconciled and they are listed on the EMR. HABITS: Does not smoke; does not drink. SOCIAL HISTORY: She has been a for over 16 years. 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 of metastatic esophageal cancer. FAMILY HISTORY: Mother developed breast cancer but it was at the age of 80. There is a history of hypertension in both parents. She has one sibling who is alive. She had lost a brother due to complications of his MS. REVIEW OF SYSTEMS: Negative for any fevers, chills, nausea or vomiting except for the fever she had earlier this week due to her pharyngitis. No unexplained weight loss. No headache or visual disturbance. No syncopal episodes. No seizures. Bowel and bladder function have been fine. Her hot flashes have been lousy. PHYSICAL EXAMINATION: GENERAL: She looks relaxed and comfortable on physical examination. She is not really flushed. VITAL SIGNS: Blood pressure is 109/62. Weight is 308. Respirations 20. Pulse 100. Temperature 98.4. SKIN: Warm and dry. Turgor is normal. Hair texture normal. HEENT: Oral mucosa intact. No pharyngeal wall exudates or erythema. LYMPH: No nodes palpable. BREASTS: Bilateral mastectomy sites look fine. LUNGS: Clear. CARDIAC: Regular rate and rhythm. No murmur. ABDOMEN: Soft. No organomegaly present. EXTREMITIES: She has trace peripheral edema at most. No clubbing or cyanosis. ASSESSMENT: 1. Stage I breast cancer. 2. Hot flashes. PLAN: I will have her double her dose of Effexor and we will call her in two weeks to see if that has improved her hot flashes any. Otherwise, I will see her back in four months or so. ADDENDUM: The patient has been on Arimidex and she will continue that. Perhaps if she does not get some relief from her Effexor I might switch her to Aromasin and see if she has less in the way of hot flashes. Nancy Guerrero M.D.* GOKUL/reinaldot; rxdrs Doc. ID [id number]; [id number] Rev. #1 cc: MARIIA SHERMAN : 1940 DATE OF VISIT: 09/21/2012 Page 2 of 3 Page 1 of 3 Authenticated by NANCY GUERRERO M.D. On 09/26/2012 07:51:55 AM * Interface, See Report - 05/24/2012 1:02 PM EST Nancy Guerrero M.D. ' Cecil Durand M.D. ' Elias Laguna M.D. ' THAD Menendez M.D. ' José Melendez M.D. ' Thao Nuñez M.D. ' Kristyn Hopkins APRN [address] [place] [address] [place] [address] [employer] OFFICE NOTE MARIIA SHERMAN : 1940 DATE OF VISIT: 10/23/2012 The patient has arthralgias, particularly in the hands and fingers that actually awaken her at night when she tries to sleep. She is on Arimidex and I have asked her to stop that and I will call her in 7 to 10 days to see how she is feeling. I also am going to call in some Tramadol(Ultram) for her to use for the discomfort. She is status post lap band procedure and she has been advised not to use any non-steroidals. Nancy Guerrero M.D.* GOKUL/patricia Doc. ID [id number] Rev. #0 cc: MARIIA SHERMAN : 1940 DATE OF VISIT: 10/23/2012 Page 1 of 1 Page 1 of 1 DOCUMENT CODE :[facility]: PHYSICIAN CODE :[id number]: Authenticated by NANCY GUERRERO M.D. On 10/25/2012 07:21:00 AM * Interface, See Report - 05/24/2012 1:02 PM EST Nancy Guerrero M.D. ' Cecil Durand M.D. ' Elias Laguna M.D. ' Kunal Carpenter, THAD Barrera M.D. ' José Melendez M.D. ' Thao Nuñez M.D. ' Kristyn Hopkins APRN [address] [place] [address], [place] [address] [place] [address] [employer] OFFICE NOTE MARIIA SHERMAN : 1940 DATE OF VISIT: 10/31/2012 PROBLEM LIST: Ms. Sherman's arthralgias, particularly in the hands and the fingers, are not any better off of the Arimidex. I told her she could restart that agent since I do not think it had anything to do with this. She appears to be having a flare of osteoarthritis and fortunately the tramadol that I prescribed does help her. She takes 2 pills (total of 100 mg) before she goes to bed at night, which gives her great relief of her pain and allows her to sleep. I told her that this was okay to continue. I will let Dr. Lagunas know about this so she is aware of this. Nancy Guerrero M.D.* JJG/rxdrs Doc. ID [id number] Rev. #0 cc: Jocelyn Lagunas M.D.* MARIIA SHERMAN : 1940 DATE OF VISIT: 10/31/2012 Page 1 of 1 Page 1 of 1 DOCUMENT CODE :[facility]: PHYSICIAN CODE :[id number]: Authenticated by NANCY GUERRERO M.D. On 11/03/2012 01:42:38 PM * Interface, See Report - 05/24/2012 1:02 PM EST Nancy Guerrero M.D. ' Cecil Durand M.D. ' Elias Laguna M.D. ' THAD Menendez M.D. ' José Melendez M.D. ' Thao Nuñez M.D. ' Kristyn Hopkins APRN [facility] [facility], [place] [address] [place] [address] [employer] OFFICE NOTE MARIIA SHERMAN : 1940 DATE OF VISIT: 01/24/2013 PROBLEM LIST: 1. ER and NJ positive, HER-2 negative stage Ia right breast cancer ([id number]) A. Status post bilateral mastectomies with sentinel node biopsy on the right on 05/04/2012. B. On adjuvant Arimidex therapy. SUBJECTIVE: Overall doing fairly well. She is pretty happy with how she feels. She is bothered with some arthritis particularly in the hands. Sed rate and FRANCHESCA were unremarkable. Dr. Lagunas evaluated her regarding that within the past month. I had had her stop her Arimidex for a couple weeks prior to that just to see if that prompted any change at all and it did not. Her pain has not been progressive. She is using some Lortab for her discomfort which seems to help but she is bothered by constipation. DRUG ALLERGIES: Quinine, penicillin, dicloxacillin, famciclovir. HABITS: Does not smoke or drink. SOCIAL HISTORY: She has been a for over 15 years. 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 Her of metastatic esophageal cancer. FAMILY HISTORY: Positive for breast cancer in her mother who developed it at the age of 80. There is a history of hypertension in both parents. There is a history of MS in a brother who due to complications thereof. REVIEW OF SYSTEMS: Negative for any fevers, chills, or night sweats. She has had no chest pain. She has had no palpitations; arthritic discomfort as mentioned above. She breathes comfortably; bowel and bladder function have been okay except for chronic constipation, which is unchanged. PHYSICAL EXAMINATION: GENERAL: She looks well. She appears relaxed and comfortable. She is in absolutely no distress at all. VITAL SIGNS: Stable. She is afebrile with a temperature of 97.7. SKIN: Warm and dry. Turgor is normal. She does have some edema of the finger joints in a pattern not suggestive of rheumatoid arthritis. EXTREMITIES: She has no adenopathy palpable. HEENT: Sclerae are anicteric. Oral mucosa is intact. NECK: Supple. JVD is normal. LUNGS: Clear. No rales or rhonchi. BREASTS: Bilateral mastectomy sites without evidence of local recurrence. ABDOMEN: Soft. No organomegaly present. EXTREMITIES: She has no peripheral edema. ASSESSMENT: 1. Ms. Sherman is doing well. She appears to be tolerating her Arimidex reasonably well. She will continue that. I will see her back in six months. Nancy Guerrero M.D.* GOKUL/rxdrs Doc. ID [id number] Rev. #0 cc: Carson Vasquez M.D.* Jocelyn Lagunas M.D.* MARIIA SHERMAN : 1940 DATE OF VISIT: 01/24/2013 Page 2 of 2 Page 1 of 2 DOCUMENT CODE :[facility]: PHYSICIAN CODE :[id number]: Authenticated by NANCY GUERRERO M.D. On 01/25/2013 06:48:29 AM documented in this encounter Plan of Treatment Not on file documented as of this encounter Visit Diagnoses Not on filedocumented in this encounter Additional Health Concerns Infection Onset Date Last Indicated Resolved Time COVID Screen (preop/placement) 04/01/2020 04/02/2020 04/02/2020 2:14 AM EST COVID Screen (preop/placement) 08/22/2020 08/22/2020 08/23/2020 4:07 PM EDT documented as of this encounter Care Teams Press Set Up Person Relationship Specialty Start Date End Date Eleno Lantigua MD [address] [place] [address] PCP - General Family Medicine 08/17/23 documented as of this encounter
--- OUTSIDE RECORDS SUMMARY | 2025-02-22 10:44 | XMS_ITS | Encounter Summary ---
Author Organization [facility] Address [address] [place] [address] Care Team Providers Care Immigration Law Specialist Name Role Phone Eleno Lantigua MD Primary Care Provider +1- [phone] Encounter Details Date Type Department Care Team (Latest Contact Info) Description 01/30/2025 Travel Social History Tobacco Use Types Packs/Day Years [...] AM EDT documented as of this encounter Plan of Treatment Not on file documented as of this encounter Visit Diagnoses Not on filedocumented in this encounter Care Teams Immigration Law Specialist Relationship Specialty Start Date End Date Eleno Lantigua MD [address] [place] [address] PCP - General Family Medicine 08/17/23 documented as of this encounter
--- OUTSIDE RECORDS SUMMARY | 2025-02-22 10:44 | XMS_ITS | Clinical Summary ---
Author Organization [facility] Address [address] [place] [address] Care Team Providers Care Snap Attacher Name Role Phone Eleno Lantigua MD Primary Care Provider +1- [phone] Allergies Active Allergy Reactions Criticality Noted Date Comments Anastrozole Other (See Comments) 03/17/2016 Severe arthralgias Famciclovir Hives,Shortness Of Breath High 03/17/2016 Penicillins Hives,Shortness Of Breath High 03/17/2016 Taken with famvir so doesn't know if fully allergic to pcn Quinine Derivatives Hives 03/17/2016 Medications Multiple Vitamins-Minera ls (CENTRUM SILVER PO) Take 1 tablet by mouth Daily. Active Cholecalciferol (VITAMIN D3) 2000 units tablet Take 1 tablet by mouth Daily. Active acetaminophen (TYLENOL) 500 MG tablet Take 1 tablet by mouth Every 6 (Six) Hours As Needed for Mild Pain. Active rOPINIRole (REQUIP) 1 MG tablet 08/16/2022 Active meloxicam (MOBIC) 15 MG tablet 05/20/2022 Active celecoxib (CeleBREX) 100 MG capsule Take 1 capsule by mouth Daily. Active metoprolol succinate XL (TOPROL-XL) 25 MG 24 hr tablet Take 1 tablet by mouth Daily. 07/13/2023 Active magnesium hydroxide (MILK OF MAGNESIA) 2400 MG/10ML suspension suspension Take 5 mL by mouth. Active Synthroid 100 MCG tablet 11/16/2023 Active hydroCHLOROthia zide 12.5 MG tablet 12/22/2023 Active Active Problems Problem Noted Date Diagnosed Date Gastroesophageal reflux disease 02/17/2022 Hypercholesterolemia 02/17/2022 Hyperlipidemia 02/17/2022 YESENIA (obstructive sleep apnea) 02/17/2022 Obesity 02/17/2022 Acute appendicitis 04/02/2020 UTI (urinary tract infection ) due to urinary indwelling catheter 04/01/2020 Hypothyroidism (acquired) 04/01/2020 Essential hypertension 04/01/2020 PMB (postmenopausal bleeding) 12/08/2017 Thickened endometrium 12/08/2017 Malignant neoplasm of lower- outer quadrant of right female breast 03/30/2016 Cancer Staging:Clinical stage from 03/30/2016:Stage IA(T1b, N0, M0) - Signed by Jayro Guerrero MD on 03/30/2016 History of right breast cancer 03/17/2016 Overview (03/17/2016): 1. 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 Overweight 03/17/2016 H/O oophorectomy 03/17/2016 Overview (03/17/2016): Hx of BTL laparoscopic oophorectomy 03/2014: A) Benign pathology fortunately Uterine polyp 03/17/2016 Overview (03/17/2016): Hx of abnormal uterine polyp Resolved Problems Problem Noted Date Diagnosed Date Resolved Date Acute appendicitis 04/01/2020 0 Encounters Date Type Department Care Team Description 01/30/2025 10:10 AM EDT Office Visit [facility] [address] [place] [address] [address] [place] [address] Alvarez Herrmann MD History of total knee arthroplasty, right (Primary Dx) 01/30/2025 Travel from Last 3 Months Social History Tobacco Use Types Packs/Day Years Used Date Smoking Tobacco: Former Cigarettes 1 10 0 05/23/1954 - 05/23/1964 Smokeless Tobacco: Never Tobacco Cessation:Counseling Given: Not Answered Alcohol Use Standard Drinks/Week Comments No 0 (1 standard drink = 0.6 oz pur e alcohol) PHQ-2 Answer Date Recorded Retired Total Score 0 08/14/2020 Comments No Sex and Gender Information Value Date Recorded Sex Assigned at Female 11/21/2024 8:28 AM EDT Legal Sex Female 10:16 AM EDT Gender Identity Not on file Sexual Orientation Straight 11/21/2024 8: 28 AM EDT Last Filed Vital Signs Vital Sign Reading Time Taken Comments Blood Pressure 152/84 01/30/2025 9:47 AM EDT Pulse 80 08/14/2020 1:25 PM EDT Temperature 36.2 C (97.1 F) 08/14/2020 1:25 PM EDT Respiratory Rate 16 11/14/2023 2:21 PM EDT Oxygen Saturation 97% 08/14/2020 1:25 PM EDT RA Inhaled Oxygen Concentration - - Weight 131 kg (289 lb) 01/30/2025 9:47 AM EDT Height 167.6 cm (5' 5.98 ) 01/30/2025 9:47 AM ED T Body Mass Index 46.67 01/30/2025 9:47 AM EDT Plan of Treatment Health Maintenance Due Date Last Done Comments TDAP/TD VACCINES (1 - Tdap) 1960 COLOGUARD 1986 COLON CANCER SCREENING 5 YEA R SIGMOIDOSCOPY [address] CT COLONOGRAPHY 1986 FECAL OCCULT BLOOD TEST 1986 FIT Testing (1 year) 1986 Pneumococcal Vaccine 50+ (1 of 1 - PCV) 10/06/1991 ZOSTER VACCINE (1 of 2) 10/06/1991 RSV Vaccine - Adults (1 - 1- dose 75+ series) 2016 LIPID PANEL 04/02/2021 04/02/2020 ANNUAL WELLNESS VISIT 08/26/2023 08/25/2022 DXA SCAN 08/26/2024 08/26/2022 COLONOSCOPY 08/25/2030 08/25/2020, 08/25/2020 COLORECTAL CANCER SCREENING 08/25/2030 COVID-19 Vaccine Completed 01/02/2025, , 03/24/2023, Additional history exists INFLUENZA VACCINE Completed 01/02/2025, , 03/24/2023, Additional history exists Medical Devices Implanted Type Area Can Bander Operator Device Identifier Shelf Expiration Date Model / Serial / Lot Reload [place] [employer] Gst 45mm Juliocesar - [id number] Implanted:Qty: 1 on 04/02/2020 by Tim Reed MD at [facility] Implant [employer] J 01/20/2023 [id number] / / [id number] Reload [place] End[employer] Gst 45mm Wht - [id number] Implanted:Qty: 1 on 04/02/2020 by Tim Reed MD at [facility] Implant [employer] 11/19/2022 GST45W / / [id number] Reload [place] End[employer] Gst 45mm Wht - [id number] Implanted:Qty: 1 on 04/02/2020 by Tim Reed MD at [facility] Implant [employer] 09/19/2022 [id number] / / [id number] Procedures Procedure Name Priority Date/Time Associated Diagnosis Comments XR KNEE 3+ VW W SUNRISE RIGHT Routine 01/30/2025 9:58 AM EDT History of total knee arthroplasty, right SCANNED - DEXA 08/26/2022 SCANNED - COLONOSCOPY 08/25/2020 LIPID PANEL Routine 04/02/2020 5:18 AM EST from Last 3 Months or Most Recently Relevant to Health Maintenance Results * XR Knee 3+ View With [place] Right (01/30/2025 9:58 AM EDT) Anatomical Region [...] IMG DIAGNOSTIC IMAGING ORDERAB LES Final Result * SCANNED - DEXA (08/26/2022) Anatomical Region Laterality Modality Other Franchesca Lane APRN CHART REVIEW TABS Fi nal Result * SCANNED - COLONOSCOPY (08/25/2020) Alphonse Haynes MD CHART REVIEW TABS Final Res ult * (ABNORMAL) Lipid Panel (04/02/2020 5:18 AM EST) Total Cholesterol 173 0 - 200 mg/dL 04/02/2020 7:14 AM EST [facility] Triglycerides 122 0 - 150 mg/dL 04/02/2020 7:14 AM EST [facility] HDL Cholesterol 46 40 - 60 mg/dL 04/02/2020 7:14 AM EST [facility] LDL Cholesterol 105(H) 0 - 100 mg/dL 04/02/2020 7:14 AM EST [facility] VLDL Cholesterol 22 5 - 40 mg/dL 04/02/2020 7:14 AM EST [facility] LDL/HDL Ratio 2.23 04/02/2020 7:14 AM EST [facility] Blood Venipuncture / Unknown 04/02/2020 5:18 AM EST 04/02/2020 6:11 AM EST Narrative [facility] - 04/02/2020 7:14 AM EST Cholesterol Reference Ranges (U.S. Department of Health and Human Services ATP III Classifications) Desirable <200 mg/dL Borderline High 200-239 mg/dL High Risk >240 mg/dL Triglyceride Reference Ranges (U.S. Department of Health and Human Services ATP III Classifications) Normal <150 mg/dL Borderline High 150-199 mg/dL High 200-499 mg/dL Very High >500 mg/dL HDL Reference Ranges (U.S. Department of Health and Human Services ATP III Classifcations) Low <40 mg/dl (major risk factor for CHD) High >60 mg/dl ('negative' risk factor for CHD) LDL Reference Ranges (U.S. Department of Health and Human Services ATP III Classifcations) Optimal <100 mg/dL Near Optimal 100-129 mg/dL Borderline High 130-159 mg/dL High 160-189 mg/dL Very High >189 mg/dL us Katelyn Leonard MD LAB BLOOD ORDERABLES Fin al Result [facility]
[address] [place] [address], [place] [phone] from Last 3 Months or Most Recently Relevant to [place] [address] [place] [address] [facility] Medicare Advantage [employer] PPO Advance Directives * CPR (Attempt to Resuscitate) (Latest Code Status on File) Date Activated Date Inactivated Comments 04/01/2020 11:53 PM 04/03/2020 4:26 PM Question Answer Comments Code Status (Patient has no pulse and is not breathing): CPR (Attempt to Resuscitate) Medical Interventions (Patie nt has pulse or is breathing): Full Level Of Support Discussed With: Patient Care Teams Snap Attacher Relationship Specialty Start Date End Date Eleno Lantigua MD [address] [place] [address] [place] [address] PCP - General Family Medicine 08/17/23
== END 2025-02-21 23:59 ==
LOC: LAB.DROPOF 02-22 10:41
PROVIDERS: PCP Family Medicine; Visit Provider Family Medicine
DX: E03.9 Hypothyroidism, unspecified (principal)
CPT/HCPCS: 84443

== ENCOUNTER 2025-03-01 12:54 | Outpatient (CLI) | payer MEDICARE, SELFPAY ==
--- NOTE | 2025-03-01 14:00 | US_ITS ---
FINAL REPORT CLINICAL HISTORY: .fu renal cysts COMPARISON: 01/18/2024 FINDINGS: RENAL ULTRASOUND Ultrasound images of the kidneys were obtained. The right kidney measures 11 cm in length. It is normal echogenicity. There is no hydronephrosis. There is a 44 mm cyst. The left kidney measures 17 cm in length. It is normal echogenicity. There is no hydronephrosis. There is an 85 mm cyst in the lower pole. IMPRESSION: No hydronephrosis. Bilateral renal cysts. Reviewed, Interpreted and Dictated by Isaak Campos MD Transcribed by Christine Fisher Authenticated and [facility]
== END 2025-03-01 23:59 | disposition home or self-care (01) ==
LOC: RAD 12:55
PROVIDERS: PCP Family Medicine; Visit Provider Family Medicine
DX: N28.1 Cyst of kidney, acquired (principal)
CPT/HCPCS: 76770

== ENCOUNTER 2025-05-08 11:05 | Outpatient (CLI) | payer MEDICARE, SELFPAY ==
[2025-05-08 19:13] LABS: Thyroid Stimulating Hormone 24.60 uIU/mL (0.465-4.68)
--- OUTSIDE RECORDS SUMMARY | 2025-05-09 10:41 | XMS_ITS | Encounter Summary ---
Author Organization [facility] Address [address] [place] [address] Care Team Providers Care Boat Hoist Operator Helper Name Role Phone Eleno Lantigua MD Primary Care Provider +1- [phone] Encounter Details Date Type Department Care Team (Late st Contact Info) Description 05/24/2012 Conversion Encounter [facility] HISTORICAL CONV [address] [place] [address] Interface, See Report Social History [...] Nuñez M.D. ' Kristyn Hopkins APRN [address] [facility], [address] [place] [address] [place] NEW PATIENT EVALUATION MARIIA SHERMAN : 1940 [...] positive, HER-2 negative by FISH technique. f. [id number] pathologic Stage IA disease. 2. 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 Her of metastatic esophageal cancer. FAMILY [...] years back by [facility]. Shanna [facility], and apparently had an abnormally elevated heart [...] Postmenopausal, small primary, well differentiated, ER and NH positive, HER-2 negative, lymph node negative, infiltrating [...] Arimidex. Nancy Guerrero M.D.* JJG/rxalw Doc. ID [id number] Rev. #0 cc: Carson Vasquez M.D.* Dr. Abhi Garza M.D.* Jocelyn Lagunas M.D.* Page 2 of 4 Page 1 of 4 Authenticated by NANCY GUERRERO M.D. On 05/25/2012 06:10:54 PM * Interface, See Report - 05/24/2012 1:02 PM EST Nancy Guerrero M.D. ' Cecil Durand M.D. ' Elias Laguna M.D. ' Kuanl Carpenter, THAD Barrera M.D. ' José Melendez M.D. ' Thao Nuñez M.D. ' Kristyn Hopkins APRN [facility] [place] [address] [place] [address] [place] CHART NOTE MARIIA SHERMAN : 1940 DATE: 06/20/2012 The patient is tolerating her aromatase inhibitor without major problem. Does have some hot flashes. I prescribed some Effexor which she will try. I will see her back in a couple of months. Nancy Guerrero M.D.* JJG/rxalw Doc. ID [id number] Rev. #0 cc: Page 1 of 1 Page 1 of 1 Authenticated by NANCY GUERRERO M.D. On 06/22/2012 03:49:21 PM * Interface, See Report - 05/24/2012 1:02 PM EST Nancy Guerrero M.D. ' Cecil Durand M.D. ' Elias Laguna M.D. ' THAD Menendez M.D. ' José Melendez M.D. ' Thao Nuñez M.D. ' Kristyn Hopkins APRN [facility] [facility], [address] [place] [address] [place] [employer] OFFICE NOTE - AMENDED MARIIA SHERMAN : [...] positive, HER-2 negative by FISH technique. f. [id number] pathologic Stage IA disease. 2. 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 of metastatic esophageal cancer. FAMILY HISTORY: [...] Nancy Guerrero M.D.* GOKUL/reinaldot; rxdrs Doc. ID [id number]; [id number] Rev. #1 cc: MARIIA SHERMAN : 1940 [...] Thao Nuñez M.D. ' Kristyn Hopkins APRN [address] [place] [address] [place] [address] [place] OFFICE NOTE MARIIA SHERMAN : 1940 DATE [...] non-steroidals. Nancy Guerrero M.D.* GOKUL/patricia Doc. ID [id number] Rev. #0 cc: MARIIA SHERMAN : 1940 DATE OF VISIT: 10/23/2012 Page 1 of 1 Page 1 of 1 DOCUMENT CODE :[facility]: PHYSICIAN CODE :62602: Authenticated by NANCY GUERRERO M.D. On 10/25/2012 07:21:00 AM * Interface, See Report - 05/24/2012 1:02 PM EST Nancy Guerrero M.D. ' Cecil Durand M.D. ' Elias Laguna M.D. ' Kunal Carpenter, THAD Barrera M.D. ' José Melendez M.D. ' Thao Nuñez M.D. ' Kristyn Hopkins APRN [address] [place] [address], [place] [address] [place] [address] [place] OFFICE NOTE MARIIA SHERMAN : 1940 DATE [...] this. Nancy Guerrero M.D.* JJG/rxdrs Doc. ID [id number] Rev. #0 cc: Jocelyn Lagunas M.D.* MARIIA SHERMAN : 1940 DATE OF VISIT: 10/31/2012 Page 1 of 1 Page 1 of 1 DOCUMENT CODE :COS: PHYSICIAN CODE :03183: Authenticated by NANCY GUERRERO M.D. On 11/03/2012 01:42:38 PM * Interface, See Report - 05/24/2012 1:02 PM EST Nancy Guerrero M.D. ' Cecil Durand M.D. ' Elias Laguna M.D. ' THAD Menendez M.D. ' José Melendez M.D. ' Thao Nuñez M.D. ' Kristyn Hopkins APRN [facility], [place] [address] [place] [address] [employer] OFFICE NOTE MARIIA SHERMAN : 1940 DATE OF VISIT: 01/24/2013 PROBLEM LIST: 1. ER and NH positive, HER-2 negative stage Ia right breast cancer ([id number]) A. 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 Her of metastatic esophageal cancer. FAMILY [...] months. Nancy Guerrero M.D.* GOKUL/rxdrs Doc. ID [id number] Rev. #0 cc: Carson Vasquez M.D.* Jocelyn Lagunas M.D.* MARIIA SHERMAN : 1940 DATE OF VISIT: 01/24/2013 Page 2 of 2 Page 1 of 2 DOCUMENT CODE :COS: PHYSICIAN CODE :[id number]: Authenticated by NANCY GUERRERO M.D. On 01/25/2013 [...] documented as of this encounter Care Teams Boat Hoist Operator Helper Relationship Specialty Start Date End Date Eleno Lantigua MD [address] [place] [address] [place] [address] PCP - General Family Medicine 08/17/23 documented as of this encounter
--- OUTSIDE RECORDS SUMMARY | 2025-05-09 10:42 | XMS_ITS | Clinical Summary ---
Author Organization [facility] Address [address] [place] [address] Care Team Providers Care Facilities And Grounds Director Name Role Phone Eleno Lantigua MD Primary Care Provider +1- [phone] Allergies Active Allergy Reactions Criticality Noted Date [...] HER-2 negative stage IA right breast cancer ([id number]) A) S/P bilateral mastectomy w/ sentinel node [...] Date Resolved Date Acute appendicitis 04/01/2020 0 Social History Tobacco Use Types Packs/Day Years [...] VISIT 08/26/2023 08/25/2022 DXA SCAN 08/26/2024 08/26/2022 COVID-19 Vaccine (2024-2 6 season) 2025 01/02/2025, 01/20/2024, 03/24/2023, Additional history exists COLONOSCOPY 08/25/2030 08/25/2020, 08/25/2020 COLORECTAL CANCER SCREENING 08/25/2030 INFLUENZA VACCINE Completed 01/02/2025, , 03/24/2023, Additional history exists Medical Devices Implanted Type Area Acquisition Analyst Device Identifier Shelf Expiration Date Model / Serial / Lot Reload [place] [employer] Gst 45mm Juliocesar - [id number] Implanted:Qty: 1 on 04/02/2020 by Tim Reed MD at [facility] Implant [employer] J 01/20/2023 GST45B / / [id number] Reload [place] [employer] Gst 45mm Wht - [id number] Implanted:Qty: 1 on 04/02/2020 by Tim Reed MD at [facility] Implant [employer] J 11/19/2022 GST45W / / [id number] Reload [place] End[employer] Gst 45mm Wht - [id number] Implanted:Qty: 1 on 04/02/2020 by Tim Reed MD at [facility] Implant [employer] J 09/19/2022 GST45W / / [id number] Procedures Procedure Name Priority Date/Time Associated Diagnosis Comments SCANNED - DEXA 08/26/2022 SCANNED - COLONOSCOPY 08/25/2020 LIPID PANEL Routine 04/02/2020 5:18 AM EST from Last 3 Months or Most Recently Relevant to Health Maintenance Results * SCANNED - DEXA (08/26/2022) Anatomical Region Laterality Modality Other Franchesca Lane APRN CHART REVIEW TABS Fi nal Result * SCANNED - COLONOSCOPY (08/25/2020) Alphonse Haynes MD CHART REVIEW TABS Final Res ult * (ABNORMAL) Lipid Panel (04/02/2020 5:18 AM EST) Total Cholesterol 173 0 - 200 mg/dL 04/02/2020 7:14 AM EST [facility] Triglycerides 122 0 - 150 mg/dL 04/02/2020 7:14 AM EST [facility] HDL Cholesterol 46 40 - 60 mg/dL 04/02/2020 7:14 AM EST [facility] LDL Cholesterol 105(H) 0 - 100 mg/dL 04/02/2020 7:14 AM EST [facility] VLDL Cholesterol 22 5 - 40 mg/dL 04/02/2020 7:14 AM EST [facility] LDL/HDL Ratio 2.23 04/02/2020 7:14 AM EST [facility] Blood Venipuncture / Unknown 04/02/2020 5:18 AM EST 04/02/2020 6:11 AM EST Narrative [facility] - 04/02/2020 7:14 AM EST Cholesterol [...] High 160-189 mg/dL Very High >189 mg/dL Katelyn Leonard MD LAB BLOOD ORDERABLES Fin al Result [facility]
[address] [place] [address], [place] [phone] from Last 3 Months or Most Recently Relevant to [place] [address] [place] [address] [facility] Medicare Advantage GROUP PPO Advance Directives * CPR (Attempt to Resuscitate) (Latest Code Status on File) Date Activated Date Inactivated Comments 04/01/2020 11:53 PM 04/03/2020 4:26 PM Question Answer Comments Code Status (Patient has no pulse and is not breathing): CPR (Attempt to Resuscitate) Medical Interventions (Patie nt has pulse or is breathing): Full Level Of Support Discussed With: Patient Care Teams Facilities And Grounds Director Relationship Specialty Start Date End Date Eleno Lantigua MD [address] [place] [address] [place] [address] PCP - General Family Medicine 08/17/23
== END 2025-05-08 23:59 | disposition home or self-care (01) ==
LOC: LAB.DROPOF 05-09 10:07
PROVIDERS: PCP Family Medicine; Visit Provider Family Medicine
DX: E03.9 Hypothyroidism, unspecified (principal)
CPT/HCPCS: 84443